=== PATIENT | male | born 1960 | race Caucasian/White ===

== ENCOUNTER 2021-03-16 17:52 | Emergency (ER) | payer OTHER, SELFPAY ==
--- NOTE | ~2021-03-16 | XR_ITS ---
EXAMINATION: XR ABDOMEN KUB CLINICAL INDICATION: Status post G-tube replacement. COMPARISON: None TECHNIQUE: AP view of the abdomen. FINDINGS: A gastrostomy tube demonstrates a somewhat atypical positioning terminating to the right of the midline, possibly within the stomach antrum or proximal duodenum. There is minimal oral contrast within the gastric fundus with the majority of the contrast opacifying loops of small bowel in the right upper quadrant. The opacified duodenum and jejunum are to the right of the midline suggesting malrotation. Correlation with prior images would be helpful. Nonobstructive bowel gas pattern. Advanced deformity of the left hip which is superiorly subluxated off the acetabula. XR/XR KUB IMPRESSION: Atypical positioning of the gastrostomy tube possibly terminating within the stomach antrum or proximal duodenum. The majority of the oral contrast is visualized within the duodenum and proximal jejunum which are to the right of the midline suggesting malrotation. Recommend correlation of appropriate positioning fluoroscopic images or CT of the abdomen. Correlation with prior studies would be also helpful to assess for bowel malrotation. However, none are available at the moment of this examination.
--- NOTE | 2021-03-16 18:51 | ED_ITS ---
HPI - Recheck/Abnormal Lab/Rx General Chief Complaint: General Medical <SOCORRO Vasquez - Last Filed: 03/16/21 20:47> Stated Complaint: PULLED GTUBE OUT <SOCORRO Vasquez Last Filed: 03/16/21 20:47> Time Seen by Provider: 03/16/21 18:04 <SOCORRO Vasquez - Last Filed: 03/16/21 20:47> Source: patient <SOCORRO Vasquez Last Filed: 03/16/21 20:47> Mode of arrival: ambulatory <SOCORRO Vasquez - Last Filed: 03/16/21 20:47> Limitations: no limitations <SOCORRO Vasquez Last Filed: 03/16/21 20:47> History of Present Illness HPI narrative: 60-year-old male presenting to the ED via EMS from [facility] [place] with a past medical history dysphagia with G- tube placed at [facility] on July 2020 presenting to the ED for replacement of G- tube after he pulled it out earlier today at the half-way facility. I called the half-way facility and they reported they were unsure the patient's G-tube size therefore I was able to look at [facility] records and it appears that patient had a [address] Although it appears that they had difficulty time placing and he needed to go to IR for placement. At this time he denies any other symptoms complaints or concerns at this time. <SOCORRO Vasquez - Last Filed: 03/16/21 20:47> MD complaint: other (G-tube replacement) <SOCORRO Vasquez Last Filed: 03/16/21 20:47> Initial visit (ago): hour(s) (Prior to arrival) <SOCORRO Vasquez Last Filed: 03/16/21 20:47> Returns today for: other (G-tube pulled out needs replacement) <SOCORRO Vasquez Last Filed: 03/16/21 20:47> Symptoms since prior visit: no new symptoms <SOCORRO Vasquez Last Filed: 03/16/21 20:47> Associated symptoms: none <SOCORRO Vasquez Last Filed: 03/16/21 20:47> Related Data Allergies/Adverse Reactions: Allergies Allergy/AdvReac Type Severity Reaction Status Date / Time No Known Allergies Allergy Unknown Unverified 12/14/19 15:32 [No Known Allergies*] <SOCORRO Vasquez - Last Filed: 03/16/21 20:47> Review of Systems Review of Systems: Constitutional : No Weight loss, No Fever, No Chills, No Night Sweats, No Fatigue, No Malaise ENT/Mouth : No Hearing loss, No Ear Pain, No Nasal Congestion, No Sinus Pain, No Hoarseness, No sore throat, No Rhinorrhea, No Swallowing Difficulty Eyes: No Eye Pain, No Swelling, No Redness, No Foreign Body, No Discharge, No Vision Changes Cardiovascular : No Chest Pain, No SOB, No Dyspnea on Exertion, No Orthopnea, No Edema, No Palpitations Respiratory : No Cough, No Sputum, No Wheezing, No Smoke Exposure, No Dyspnea Gastrointestinal : No Nausea, No Vomiting, No Diarrhea, No Constipation, No abdominal Pain, No Hematochezia, No Melena Genitourinary : no irregular bleeding, No Dysuria, No Urinary Frequency, No Hematuria, No Urinary Incontinence, No Urgency, No Flank Pain, No Urinary Flow Changes, No Hesitancy Musculoskeletal : No joint pain, No Myalgias, No Joint Swelling Skin : No Skin Lesions, No rash Neuro : No Weakness, No Numbness, No Paresthesias, No Loss of Consciousness, No Dizziness, No Headache Psych : No Anxiety/Panic, No Depression, No SI/HI/AH/VH, No Social Issues, Heme/Lymph: No Bruising, No Bleeding,No Lymphadenopathy Endocrine : No Polyuria, No Polydipsia, No Temperature Intolerance <SOCORRO Vasquez - Last Filed: 03/16/21 20:47> Yes all other systems are reviewed and are negative <SOCORRO Vasquez - Last Filed: 03/16/21 20:47> PMFSH Past Medical History Attestation statement: The following information was validated with the patient. <SOCORRO Vasquez - Last Filed: 03/16/21 20:47> Social History Social History: Social History Advance Directives: No Advance Directives Information Provided: No <SOCORRO Vasquez Last Filed: 03/16/21 20:47> Physical Exam Vital Signs: Vital Signs: Last Vital Signs Temp 97.7 F 03/16/21 21:51 Pulse 77 03/16/21 21:51 Resp 20 03/16/21 21:51 BP 118/60 03/16/21 21:51 Pulse Ox 98 03/16/21 21:51 BMI result Body Mass Index 25.7 vital signs have been reviewed as normal and appeared to be correct. Blood pr essure normal. Heart rate normal. Respiration rate normal. Temperature normal. Oxygen saturation normal. <SOCORRO Vasquez - Last Filed: 03/16/21 20:47> Vital Signs: Last Vital Signs Temp 97.7 F 03/16/21 21:51 Pulse 77 03/16/21 21:51 Resp 20 03/16/21 21:51 BP 118/60 03/16/21 21:51 Pulse Ox 98 03/16/21 21:51 BMI result Body Mass Index 25.7 <SOCORRO Higgins - Last Filed: 03/16/21 21:58> Appearance: Alert. Oriented X3. No acute distress. Head: Normal external exam. Normocephalic. Eyes: PERRLA. EOMI. Conjunctiva and sclera normal. Eyelids normal. ENT: Pharynx normal. Uvula midline. Moist mucous membranes. Neck: Normal inspection. Neck supple. FROM. No adenopathy. No meningeal signs. CVS: Normal heart rate and rhythm. Heart sound normal. No murmurs noted. Pulses normal throughout. Respiratory: No respiratory distress. Painless inspiration. Breath sounds normal. No wheezes/rales/rhonchi noted. Chest nontender. No accessory muscle usage noted or decreased air movement noted. Abdomen: Soft and nontender. Nondistended. No guarding. No rigidity. Bowel sounds normal in all 4 quadrants. No distention noted. No organomegaly noted. No visible injury noted. No rebound tenderness. Negative Rovsing sign. Negative obturator's sign. Negative psoas sign. Negative Garcias sign. Patient noted to have opening to left upper quadrant/umbilicus area consistent with G- tube placement. No signs of infection or active bleeding noted. Back: Full range of motion noted. Skin: Skin warm and dry. Normal skin color. Normal skin turgor. No rashes/lesions/lacerations noted. Extremities: Extremities exhibit normal range of motion. Extremities nontender. Neuro: Oriented X 3. No motor deficit. No sensory deficit. Reflexes normal. <SOCORRO Vasquez - Last Filed: 03/16/21 20:47> Course Course Course Narrative: Reviewed x-ray with Dr Schwartz, who will repositioin tube, and determined patient is safe to return to his nursing facility <SOCORRO Higgins - Last Filed: 03/16/21 21:58> MDM - Recheck/Abnormal Lab/Rx MDM Narrative Medical decision making narrative: 60-year-old male presenting to the ED via EMS [facility] [place] with a past medical history dysphagia with G- tube placed at [facility] on July 2020 presenting to the ED for replacement of G- tube after he pulled it out earlier today at the half-way facility. I called the half-way facility and they reported they were unsure the patient's G-tube size therefore I was able to look at [facility] records and it appears that patient had a [address] Although it appears that they had difficulty time placing and he needed to go to IR for placement. At this time he denies any other symptoms complaints or concerns at this time. I had a difficult time placing a 20 Belarusian G-tube and we called the nursing newspaper distributor supervisor and there was no smaller G Tube size therefore I consulted with the general surgeon Dr. Cordova and she recommended placing a Tavarez catheter in. Inflate balloon. Pullback tensely. Gastrografin through the Tavarez and snap a quick KUB 1-2 minutes after show contrast in stomach then to send the patient home if the Gastrografin was noted in the stomach. Therefore patient tolerated procedure well I placed the 18 Belarusian Tavarez catheter in no complications. Pending x-ray at this time if Gastrografin is in the stomach will DC back to half-way facility. Patient understands agrees with this plan. <SOCORRO Vasquez - Last Filed: 03/16/21 20:47> Medical Records Attestation: I reviewed the patient's medical records. <SOCORRO Vasquez Last Filed: 03/16/21 20:47> Discharge Plan Discharge Clinical Impression: Gastrojejunostomy tube dislodgement <SOCORRO Vasquez - Last Filed: 03/16/21 20:47> Patient Disposition: Home, Self-Care <SOCORRO Vasquez - Last Filed: 03/16/21 20:47> Additional Instructions: We attempted to place a 20 Belarusian G-tube due to that is what I got out of the [facility] records when he had it placed and we had a lot of resistance therefore I consulted with the general surgeon who recommended placing a Tavarez catheter in place therefore an 18 Belarusian Tavarez catheter was placed and confirm with KUB with Gastrografin that he has a tube back in place in the stomach. Return if any new or worsening symptoms and follow-up with cylinder die machine operator. <SOCORRO Vasquez - Last Filed: 03/16/21 20:47> Referrals: Alejandro Leach MD [Primary Care Provider] - 2 days <SOCORRO Vasquez - Last Filed: 03/16/21 20:47> Print Language: Latvian <SOCORRO Vasquez - Last Filed: 03/16/21 20:47>
[2021-03-16 18:55] VITALS: BP 137/84; BP 144/70; PULSE 81; PULSE 90; RESP 16; TEMP 36.8; O2SAT 96; O2SAT 98; BMI 25.7
--- NOTE | 2021-03-16 19:08 | PC.NURSE ---
SOCORRO VU UNABLE TO PLACE G-TUBE AT BEDSIDE. NO SIZE 18 AVAILABLE TRY TO HAVE MANAGING BROKER PLACE AND IV.
--- NOTE | 2021-03-16 21:50 | PC.NURSE ---
Boosted pt up in bed, made him more comfortable. Offered blanket.
[2021-03-16 21:51] VITALS: BP 118/60; PULSE 77; RESP 20; TEMP 36.5; O2SAT 98
== END 2021-03-16 23:00 | disposition home or self-care (01) ==
PROVIDERS: Emergency Provider Emergency Medicine; PCP Internal Medicine
DX: T85.528A Displacement of other gastrointestinal prosthetic devices, implants and grafts, initial encounter (principal); Y82.8 Other medical devices associated with adverse incidents
CPT/HCPCS: 43762; 74018; 99283; 99284

== ENCOUNTER 2021-03-29 20:01 | Emergency (ER) | payer OTHER, SELFPAY ==
--- NOTE | ~2021-03-29 | XR_ITS ---
EXAMINATION: XR ABDOMEN KUB CLINICAL INDICATION: G-tube check COMPARISON: 03/29/2021 TECHNIQUE: AP view of the abdomen. FINDINGS: ET tube overlies the region of the gastric antrum and body. Injected contrast extends into the stomach and propagates into the duodenum to the level of the fourth portion of duodenum. No appreciable extraluminal contrast. Intraluminal gas is present in the colon. No pathologic calcifications are identified. Degenerative spondylosis is present in the thoracic spine. XR/XR KUB IMPRESSION: Intraluminal positioning of the G-tube at the stomach.
[2021-03-29 20:07] VITALS: BP 118/72; PULSE 94; O2SAT 98
[2021-03-29 20:12] VITALS: BP 115/68; PULSE 91; RESP 20; TEMP 37; O2SAT 95; BMI 26.6
--- NOTE | 2021-03-29 20:14 | ED_ITS ---
HPI - General Adult General Chief complaint: General Medical Stated complaint: FEEDING TUBE ISSUE Time Seen by Provider: 03/29/21 20:14 Source: EMS and RN notes reviewed Mode of arrival: EMS History of Present Illness HPI narrative: Patient from intermediate came here for this large feeling tube size unknown Related Data Allergies Allergy/AdvReac Type Severity Reaction Status Date / Time No Known Allergies Allergy Unknown Unverified 03/29/21 20:15 [No Known Allergies*] Review of Systems Review of Systems: Yes all other systems are reviewed and are negative [facility] Past Medical History Medical History (Updated 03/29/21 @ 20:52 by Harshal Schwartz MD) COPD (chronic obstructive pulmonary disease) Dementia Dysphagia Gastrostomy in place Hypertension Hypothyroidism Osteoarthritis Schizophrenia Social History Social History Advance Directives: No Physical Exam Vital Signs: Vital Signs: Last Vital Signs Temp 98.6 F 03/29/21 20:12 Pulse 91 03/29/21 20:12 Resp 20 03/29/21 20:12 BP 115/68 03/29/21 20:12 Pulse Ox 95 03/29/21 20:12 BMI result Body Mass Index 26.6 Appearance: Alert. Oriented X1. No acute distress. ENT: Pharynx normal. Oral Mucosa moist Neck: Normal inspection. Neck supple. CVS: Normal heart rate and rhythm. Pulses normal. Respiratory: No respiratory distress. Equal air entry bilateral, no wheezing/rales/rhonchi Abdomen: Soft and nontender. Stoma for G-tube in place, Bowel sounds are present, no mass palpable, no CVA tenderness Skin: Skin warm and dry. Normal skin color. Normal skin turgor. Extremities: No lower extremity edema. No calf tenderness Neuro: Oriented X1 Procedures Feeding Tube Replacement Type of Tube: gastrostomy Insertion Site Prior to Procedure: clean Tube Used for Reinsertion: other Egyptian Tube Size (F): 22 Balloon size (mL): 10 Verification of Placement: gastrografin injection Patient Tolerated Procedure: well and no complications Medical Decision Making MDM Narrative Medical decision making narrative: G-tube was dislodged at intermediate was replaced by 22 Egyptian G-tube without much resistance Gastrografin x-ray showed G tube in place Discharge Plan Discharge Clinical Impression: Dislodged gastrostomy tube Patient Disposition: Xfer [facility] Transfer Details: to [place] Instructions: PEG Tube Insertion (DC) Additional Instructions: Local care as advised 22 Egyptian G-tube was replaced okay to use for feeding Interventions: ED Discharge Assessment Last Done: 03/29/21 22:08 Discharge Date/Time: 03/29/21 22:09
--- NOTE | 2021-03-29 20:23 | PC.NURSE ---
MD at bedside for g-tube placement. Per MD, size 22 g-tube placed. Plan for Xray and discharge.
--- NOTE | 2021-03-29 20:37 | ED.GENADULT ---
HPI - General Adult General Chief complaint: General Medical Stated complaint: FEEDING TUBE ISSUE Time Seen by Provider: 03/29/21 20:14 Source: EMS History of Present Illness HPI narrative: Patient came from residential G-tube replacement as it was dislodged in residential Related Data Allergies Allergy/AdvReac Type Severity Reaction Status Date / Time No Known Allergies Allergy Unknown Unverified 03/29/21 20:15 [No Known Allergies*] PMFSH Past Medical History Medical History (Updated 03/29/21 @ 20:52 by Harshal Schwartz MD) COPD (chronic obstructive pulmonary disease) Dementia Dysphagia Gastrostomy in place Hypertension Hypothyroidism Osteoarthritis Schizophrenia Social History Social History Advance Directives: No Physical Exam Vital Signs: Vital Signs: Last Vital Signs Temp 98.6 F 03/29/21 20:12 Pulse 91 03/29/21 20:12 Resp 20 03/29/21 20:12 BP 115/68 03/29/21 20:12 Pulse Ox 95 03/29/21 20:12 BMI result Body Mass Index 26.6 Discharge Plan Discharge Clinical Impression: Dislodged gastrostomy tube Patient Disposition: Xfer SNF Transfer Details: to [place] Instructions: PEG Tube Insertion (DC) Additional Instructions: Local care as advised 22 Azeri G-tube was replaced okay to use for feeding Interventions: ED Discharge Assessment Last Done: 03/29/21 22:08 Discharge Date/Time: 03/29/21 22:09
--- NOTE | 2021-03-29 22:02 | PC.NURSE ---
This RN contacting [facility] regarding nurse to nurse report. EMS at bedside for return transport to facility.
== END 2021-03-29 22:09 | disposition skilled nursing facility (03) ==
PROVIDERS: Emergency Provider Internal Medicine; PCP Internal Medicine
DX: K94.23 Gastrostomy malfunction (principal); Z79.899 Other long term (current) drug therapy
CPT/HCPCS: 43762; 74018; 99283

== ENCOUNTER 2021-04-03 11:18 | Emergency (ER) | payer OTHER, SELFPAY ==
--- NOTE | ~2021-04-03 | XR_ITS ---
EXAMINATION: XR ABDOMEN KUB CLINICAL INDICATION: G-tube check with Gastrografin COMPARISON: 03/29/2021 TECHNIQUE: Single view of the abdomen was obtained on 2 images. FINDINGS: The tip of the G-tube overlies the distal gastric body similar to the previous study. Oral contrast fills the stomach and proximal small bowel. No evidence of bowel obstruction. XR/XR abdomen 1V IMPRESSION: Oral contrast in the stomach and proximal small bowel. Nonobstructive bowel gas pattern.
[2021-04-03 11:33] VITALS: BP 125/68; BP 130/70; PULSE 79; PULSE 80; RESP 18; O2SAT 97; O2SAT 98; BMI 24.9
[2021-04-03 11:38] VITALS: TEMP 36.4
--- NOTE | 2021-04-03 11:46 | ED_ITS ---
HPI - General Adult General Stated complaint: G-TUBE ISSUE FROM SNF Time Seen by Provider: 04/03/21 11:22 Source: patient Mode of arrival: ambulatory Limitations: no limitations History of Present Illness HPI narrative: Patient comes to the emergency room by EMS. Seems that earlier today, patient pulled out his G-tube. According to EMS, they were not told what size of G-tube the patient had, they were not told either how long the G-tube has been out. Patient is unable to give any history due to advanced dementia. Patient states that he is doing well. Reviewing patient's notes, patient was seen here on March 29. Patient dislodged his G-tube and it was replaced with a 22 Congolese. Related Data Allergies Allergy/AdvReac Type Severity Reaction Status Date / Time No Known Allergies Allergy Unknown Verified 04/03/21 11:33 [No Known Allergies*] Review of Systems Review of Systems: Dislodged G-tube Yes Unobtainable due to mental condition PMFSH Past Medical History Medical History COPD (chronic obstructive pulmonary disease) Dementia Dysphagia Gastrostomy in place Hypertension Hypothyroidism Osteoarthritis Schizophrenia Social History Social History Advance Directives: No Advance Directives Information Provided: Yes Physical Exam Vital Signs: Vital Signs: Last Vital Signs Temp 97.6 F 04/03/21 11:38 Pulse 79 04/03/21 11:33 Resp 18 04/03/21 11:33 BP 125/68 04/03/21 11:33 Pulse Ox 97 04/03/21 11:33 BMI result Body Mass Index 24.9 Const: Other: Appearance: Alert. Oriented X3. No acute distress. Eyes: Pupils equal, round and reactive to light. ENT: Pharynx normal. Neck: Normal inspection. Neck supple. No lymph nodes noted. No crepitus CVS: Normal heart rate and rhythm. Pulses normal. Normal S1 and S2 Respiratory: No respiratory distress. Breath sounds normal. No Wheezing. No rales Abdomen: Soft and nontender. No rigidity. No distention. G-tube foramen is patent Skin: Skin warm and dry. Normal skin color. Normal skin turgor. Extremities: No lower extremity edema. No Lacerations. No Rash Neuro: Oriented X 3. No motor deficit. No sensory deficit. Moving all extermities. No slurred speech. Course Course Course Narrative: Patient's G-tube was replaced with a new 22 Congolese G-tube. Medical Decision Making Imaging Data KUB: My impression: I personally reviewed the KUB. The injected contrast propagates into the duodenum Discharge Plan Discharge Clinical Impression: Dislodged gastrostomy tube Patient Disposition: Home, Self-Care Instructions: How to Use and Care for Your PEG Tube (ED) Additional Instructions: Please follow-up with your primary care physician tomorrow. If you have any worsening or new symptoms, please return to the emergency room or call 911
[2021-04-03] MEDS: Diatrizoate Meglumine, Sodium 120 ML SOLUTION PO (13:04)
--- NOTE | 2021-04-03 16:30 | PC.NURSE ---
cleansed of loose stool again. awaits return to [facility]
[2021-04-03 17:23] LABS: Glucose, Whole Blood 65 mg/dL (60-115)
--- NOTE | 2021-04-03 19:59 | PC.NURSE ---
pt has been queitly resting throughout the day. 2-3 episodes of loose stool cleansed. unlabored. reminded to use mask. after poc of 65 was given this RN attempted to contact facility x 3 but was never answered. po orange juice with provider's permission. pt has slight coughing at very end of juice. at this time GI tube feeding has arrived from kitchen and patient will receive 60cc/hr untill discharge. awaits transportation to facility. report was not given since facility never answered phone.
--- NOTE | 2021-04-03 20:24 | PC.NURSE ---
This RN gave nurse to nurse report to Kait at [facility] who accepted report and accepted pt to be transferred back to facility
[2021-04-03 20:52] VITALS: BP 127/73; PULSE 83; RESP 18; TEMP 36.7; O2SAT 96
== END 2021-04-03 21:24 | disposition home or self-care (01) ==
PROVIDERS: Emergency Provider Emergency Medicine
DX: T85.528A Displacement of other gastrointestinal prosthetic devices, implants and grafts, initial encounter (principal); Y82.8 Other medical devices associated with adverse incidents; I10 Essential (primary) hypertension; F03.90 Unspecified dementia, unspecified severity, without behavioral disturbance, psychotic disturbance, mood disturbance, and anxiety
CPT/HCPCS: 43762; 74018; 82947; 99283; 99284

== ENCOUNTER 2021-06-29 15:26 | Inpatient (IN) | payer OTHER, SELFPAY ==
[2021-06-29] VITALS (7 sets, daily range): BP systolic 96–131; BP diastolic 59–78; PULSE 115–126; RESP 17–26; TEMP 37.2–38.4; O2SAT 88–95; BMI 27.6
--- NOTE | ~2021-06-29 | XR_ITS ---
EXAMINATION: XR CHEST CLINICAL INFORMATION: Dyspnea COMPARISON: Chest x-ray 12/16/2014 and chest x-ray 10/05/2014 TECHNIQUE: Frontal view of the chest was obtained. FINDINGS: Cardiac silhouette is normal in size. Prominent asymmetric elevation of the right hemidiaphragm with gaseous loops of colon within the. Linear opacities of the right lung base are most suggestive of atelectasis. There is relatively good aeration of the left hemithorax. No large pleural effusion. No pneumothorax. XR/XR chest 1V IMPRESSION: No gross lobar consolidation.
--- NOTE | 2021-06-29 15:51 | ECG_ITS ---
Test Reason : AMS Blood Pressure : / mmHG Vent. Rate : 116 BPM Atrial Rate : 116 BPM P-R Int : 140 ms QRS Dur : 074 ms QT Int : 330 ms P-R-T Axes : 046 097 054 degrees QTc Int : 458 ms Sinus tachycardia Rightward axis Low voltage QRS ST & T wave abnormality, consider anterior ischemia Abnormal ECG When compared with ECG of 15-SEP-2014 19:29, Questionable change in QRS axis Referred By: Generic ED Physician Electronically Signed By:ROLAND CANO MD
[2021-06-29 16:02] LABS: MANUAL DIFF FLAG NO
[2021-06-29 16:04] LABS: Basophils Percent Auto 0.4 % (0-2); Hematocrit 41.7 % (42.0-52.0); Hemoglobin 14.2 g/dl (14.0-18.0); Imm Gran Abs Auto 0.05 X10*3/uL (0.00-0.03); Imm Gran Pct Auto 0.6 % (0.0-0.4); Lymphocytes Absolute Auto 1.6 X10*3/uL (1.2-4.9); Lymphocytes Percent Auto 18.9 % (20-40); Mean Corpuscular HGB Conc 34.1 g/dl (31.0-36.0); Mean Corpuscular Hemoglobin 31.6 pg (27.0-33.0); Mean Corpuscular Volume 92.7 fL (80.0-98.0); Mean Platelet Volume 12.6 fL (9.4-12.4); Monocytes Absolute Auto 0.5 X10*3/uL (0.1-1.2); Monocytes Percent Auto 6.6 % (2-11); Neutrophils Absolute Auto 6.1 x10*3/uL (2.0-8.3); Neutrophils Percent Auto 73.5 % (45-73); Platelet Count 120 X10*3/uL (160-400); Red Cell Distribution Width 13.6 % (11.0-16.0); White Blood Count 8.2 X10*3/uL (4.8-10.8)
--- NOTE | 2021-06-29 16:23 | ED.SOB ---
HPI - SOB/Dyspnea General Chief Complaint: Dyspnea Stated Complaint: ams Time Seen by Provider: 06/29/21 16:09 Source: EMS Mode of arrival: EMS Limitations: altered mental status (Patient has dysarthric speech which is difficult to comprehend) History of Present Illness HPI Narrative: 60-year-old male patient sent in from [place] [facility] for evaluation of altered mental status, dyspnea and fever. Patient was noted to have significant redness and warmth to the left hip and left lower extremity. The following information was obtained from the long-term transfer note: Resident with increased white blood cell count, increased respiratory rate, increased shortness of breath, increased heart rate, increased cough. Resident is NPO. Jimmie gastrotomy tube with continuous feeding. The patient is a full code. MD elicited complaint: shortness of breath and cough Pertinent past history: COPD, pneumonia, aspiration and other (Dysphagia) Onset (ago): day(s) (2) Timing: constant Severity: severe Exacerbating factors: coughing Relieving factors: nothing Known history of: COPD and aspiration pneumonia Associated symptoms: fever and cough Treatment prior to arrival: oxygen Related Data Home Medications Medication Instructions Recorded Confirmed acetaminophen 160 mg/5 mL oral 960 mg FEEDING TUBE BID 06/29/21 06/29/21 liquid benztropine 0.5 mg tablet 0.5 mg FEEDING TUBE BID 06/29/21 06/29/21 clonazepam 0.5 mg tablet 0.5 mg FEEDING TUBE DAILY@179906/29/21 06/29/21 famotidine 20 mg tablet 20 mg FEEDING TUBE DAILY@179906/29/21 06/29/21 haloperidol 5 mg tablet 5 mg FEEDING TUBE DAILY@179906/29/21 06/29/21 levothyroxine 125 mcg tablet 125 mcg FEEDING TUBE DAILY@59906/29/21 06/29/21 levothyroxine 25 mcg tablet 12.5 mcg FEEDING TUBE DAILY@59906/29/21 06/29/21 melatonin 3 mg tablet 6 mg FEEDING TUBE DAILY@179906/29/21 06/29/21 polyethylene glycol 3350 17 gram 17 g FEEDING TUBE DAILY@1800 06/29/21 06/29/21 oral powder packet quetiapine 100 mg tablet 100 mg FEEDING TUBE BEDTIME 06/29/21 06/29/21 quetiapine 25 mg tablet 50 mg FEEDING TUBE DAILY@0606/29/21 06/29/21 sennosides 8.6 mg-docusate sodium 2 tab-cap PO BID 06/29/21 06/29/21 50 mg tablet (Senna with Docusate Sodium) valproic acid (as sodium salt) 250 500 mg FEEDING TUBE BID 06/29/21 06/29/21 mg/5 mL oral solution Allergies Allergy/AdvReac Type Severity Reaction Status Date / Time No Known Allergies Allergy Unknown Verified 04/03/21 11:33 [No Known Allergies*] Review of Systems Review of Systems: Yes all other systems are reviewed and are negative Neurologic: Reports Abnormal speech present (Dysarthric) [facility] Past Medical History [facility] Narrative: Social history: The patient is a resident of the [facility] [place] [facility]. He does not smoke cigarettes, drink alcohol or use drugs. Medical History COPD (chronic obstructive pulmonary disease) Dementia Dysphagia Gastrostomy in place Hypertension Hypothyroidism Osteoarthritis Schizophrenia Social History Social History Advance Directives: No Advance Directives Information Provided: No Physical Exam Vital Signs: Vital Signs: Last Vital Signs Temp 101.1 F H 06/29/21 15:46 Pulse 116 H 06/29/21 16:47 Resp 24 H 06/29/21 16:47 BP 113/74 06/29/21 16:47 Pulse Ox 94 06/29/21 16:47 BMI result Body Mass Index 27.6 Const: Other: Awake, male patient, he was able to tell me his name, has dysarthric speech which is incomprehensible. He does sound like a has a productive cough, he is dyspneic but does not appear to be in respiratory distress. Orientation/consciousness: oriented to person HEENT: Head: Yes normal to inspection, Yes normocephalic and Yes atraumatic Ears: external ears normal General nose exam: Normal external nose present Face and sinus: Yes normal facial exam Mouth: other (Dry oral mucosa) Throat: Yes posterior oropharynx normal Eyes: General: appearance normal, both eyes and all related structures Periorbital: periorbital findings normal Eyelids: Yes eyelids normal Conjunctivae: conjunctivae normal Sclerae: sclerae normal Corneas: corneas normal Pupils: Equal, round and reactive pupils present Direct Ophthalmoscopy: normal light reflex Neck: Neck: Yes normal visual inspection and Yes supple Lymphatic: no lymphadenopathy noted Chest: Chest palpation & inspection: normal inspection of the chest and normal palpation of entire chest wall Resp: Effort & Inspection: audible wheezes and tachypneic Auscultation: rales diffuse, rhonchi throughout and no wheezes Cardio: Rate: tachycardic Rhythm: regular rhythm Heart sounds: S1 normal heart sound present and S2 normal heart sound present GI: Other: G-tube Inspection: No distended Palpation (GI): Soft to palpation, nontender and no guarding Auscultation: normal bowel sounds : General: Yes no CVA tenderness Back/Spine/Pelvis: Back: no CVA tenderness Skin: Other: Erythema left lower extremity, see extremity exam/photo Neuro: General: oriented to person Cranial nerves: Yes CN's II-XII intact bilaterally and Yes Equal, round and reactive pupils present Speech: Abnormal speech present (Dysarthric) Motor exam (neuro): Other motor observations present (Atrophy of lower extremities, moves upper extremities symmetrically) Extrem: Other: Atrophy of lower extremities, the patient has erythema from his left hip down to his foot, the erythema is warm to touch and blanches with palpation Course Course Course Narrative: 60-year-old male sent from his nursing facility for evaluation of elevated WBC, cough, elevated respiratory rate, elevated heart rate. According to the ED nurse, paramedics report that the patient is normally alert and verbal and apparently he may be slightly altered according to the long-term. On presentation, the patient is oriented to person, he has very dysarthric speech which is not comprehensible. His vital signs revealed a pulse of 120, respiratory rate of 26 and a temperature of a 101.5 degrees F. his blood pressure was 137/74. The patient meets SIRS criteria and a sepsis alert was activated at 16:15 hours. The patient does have a history of dysphagia and has a G-tube for continual feeding. He has had aspiration pneumonia is in the past. The ED nurse noted that the patient had significant erythema to his left lower extremity from his hip down to his foot. Laboratory evaluation was ordered. Given the fact that he is at high risk for aspiration pneumonia he was given Zosyn 4.5 g IV and also he may have a significant cellulitis of his left leg therefore he is ordered to get vancomycin 1250 mg IV as well. Also, I ordered a 30 cc/kilogram normal saline bolus was ordered. 1750: Laboratory evaluation: Low platelets a 709765, low sodium 132, low CO2 20, elevated BUN 31. Troponin was detectable but not elevated at 6.2. First lactate was elevated 2.3, after fluid bolus repeat lactate was 1.9. BNP was 35. Radiology studies: Chest x-ray no acute lobar disease as per radiologist. I did discuss the patient's presentation with the covering hospitalist, Dr. Razo and the patient will be admitted for further management his cellulitis. MDM - SOB/Dyspnea Lab Data Result diagrams: 06/29/21 15:55 06/29/21 16:32 Labs: Lab Results 06/29/21 06/29/21 06/29/21 Range/Units 15:55 15:55 16:16 WBC 8.2 (4.8-10.8) X10*3/uL RBC 4.50 L (4.60-5.80) X10*6/uL Hgb 14.2 (14.0-18.0) g/dl Hct 41.7 L (42.0-52.0) % MCV 92.7 (80.0-98.0) fL MCH 31.6 (27.0-33.0) pg MCHC 34.1 (31.0-36.0) g/dl RDW 13.6 (11.0-16.0) % Plt Count 120 L (160-400) X10*3/uL MPV 12.6 H (9.4-12.4) fL Immature Gran % (Auto) 0.6 H (0.0-0.4) % Neut % (Auto) 73.5 H (45-73) % Lymph % (Auto) 18.9 L (20-40) % Wilson % (Auto) 6.6 (2-11) % Eos % (Auto) 0.0 (0-4) % Baso % (Auto) 0.4 (0-2) % Lymph # (Auto) 1.6 (1.2-4.9) X10*3/uL Wilson # (Auto) 0.5 (0.1-1.2) X10*3/uL Eos # (Auto) 0.0 (0.0-0.4) X10*3/uL Baso # (Auto) 0.0 (0.0-0.2) X10*3/uL Abs Immat Gran (auto) 0.05 H (0.00-0.03) X10*3/uL Absolute Neuts (auto) 6.1 (2.0-8.3) x10*3/uL Absolute Nucleated RBC 0.000 (0.0-0.012) X10*3/uL Nucleated RBC % (auto) 0.0 (0.0-0.2) /100WBC Sodium (135-145) mmol/L Potassium (3.3-5.1) mmol/L Chloride (96-108) mmol/L Carbon Dioxide (22-29) mmol/L Anion Gap (12-20) BUN (9-16) mg/dL Creatinine (0.5-1.4) mg/dL Estim Creat Clear Calc Estimated GFR Random Glucose (60-115) mg/dL Lactic Acid 2.3 H* (0.5-2.0) mmol/L Calcium (8.4-10.2) mg/dL Total Bilirubin (0.0-1.0) mg/dL Direct Bilirubin (0.0-0.5) mg/dL AST (5-37) U/L ALT (0-40) U/L Alkaline Phosphatase (39-117) U/L Troponin I High Sens 6.2 (<3.5-35.0) ng/L B-Natriuretic Peptide 35 (<100) pg/mL Total Protein (6.5-8.0) g/dL Albumin (3.5-5.0) g/dL Lipase (8-78) U/L 06/29/21 06/29/21 Range/Units 16:32 17:25 WBC (4.8-10.8) X10*3/uL RBC (4.60-5.80) X10*6/uL Hgb (14.0-18.0) g/dl Hct (42.0-52.0) % MCV (80.0-98.0) fL MCH (27.0-33.0) pg MCHC (31.0-36.0) g/dl RDW (11.0-16.0) % Plt Count (160-400) X10*3/uL MPV (9.4-12.4) fL Immature Gran % (Auto) (0.0-0.4) % Neut % (Auto) (45-73) % Lymph % (Auto) (20-40) % Wilson % (Auto) (2-11) % Eos % (Auto) (0-4) % Baso % (Auto) (0-2) % Lymph # (Auto) (1.2-4.9) X10*3/uL Wilson # (Auto) (0.1-1.2) X10*3/uL Eos # (Auto) (0.0-0.4) X10*3/uL Baso # (Auto) (0.0-0.2) X10*3/uL Abs Immat Gran (auto) (0.00-0.03) X10*3/uL Absolute Neuts (auto) (2.0-8.3) x10*3/uL Absolute Nucleated RBC (0.0-0.012) X10*3/uL Nucleated RBC % (auto) (0.0-0.2) /100WBC Sodium 132 L (135-145) mmol/L Potassium 5.0 (3.3-5.1) mmol/L Chloride 101 (96-108) mmol/L Carbon Dioxide 20 L (22-29) mmol/L Anion Gap 16 (12-20) BUN 31 H (9-16) mg/dL Creatinine 1.29 (0.5-1.4) mg/dL Estim Creat Clear Calc 66.8 Estimated GFR 57 Random Glucose 100 (60-115) mg/dL Lactic Acid 1.9 (0.5-2.0) mmol/L Calcium 8.3 L (8.4-10.2) mg/dL Total Bilirubin 0.6 (0.0-1.0) mg/dL Direct Bilirubin 0.2 (0.0-0.5) mg/dL AST 47 H (5-37) U/L ALT 35 (0-40) U/L Alkaline Phosphatase 79 (39-117) U/L Troponin I High Sens (<3.5-35.0) ng/L B-Natriuretic Peptide (<100) pg/mL Total Protein 6.3 L (6.5-8.0) g/dL Albumin 2.8 L (3.5-5.0) g/dL Lipase 16 (8-78) U/L Critical Care Time Critical Care Time Critical Care Time: Yes Total Critical Care Time: 35 Attestation: Critical Care: The patient was critically ill with a high probability of imminent or life threatening deterioration. I spent greater than 30 minutes of discontinuous time evaluating the patient,delivering critical care at the bedside, discussing and evaluating pertinent data with consultants. Critical care time does not include time spent performing separately billable procedures or teaching. Total time spent performing critical care was 30 minutes. Discharge Plan Discharge Prescriptions: No Action quetiapine 25 mg Tablet 50 mg feeding tube DAILY@0600 0RF benztropine 0.5 mg Tablet 0.5 mg feeding tube BID 0RF Rx Instructions: AT 0600 AND 1800 haloperidol 5 mg Tablet 5 mg feeding tube DAILY@1800 0RF acetaminophen 160 mg/5 mL Liquid 960 mg feeding tube BID 0RF Rx Instructions: TAKE A 6 AM AND 6 PM polyethylene glycol 3350 17 gram Powder In Packet 17 g feeding tube DAILY@1800 0RF clonazepam 0.5 mg Tablet 0.5 mg feeding tube DAILY@1800 0RF sennosides-docusate sodium [Senna with Docusate Sodium] 8.6-50 mg Tablet 2 tab-cap PO BID 0RF melatonin 3 mg Tablet 6 mg feeding tube DAILY@1800 0RF quetiapine 100 mg Tablet 100 mg feeding tube BEDTIME 0RF levothyroxine 25 mcg Tablet 12.5 mcg feeding tube DAILY@0600 0RF famotidine 20 mg Tablet 20 mg feeding tube DAILY@1800 0RF valproic acid (as sodium salt) 250 mg/5 mL Solution 500 mg feeding tube BID 0RF levothyroxine 125 mcg Tablet 125 mcg feeding tube DAILY@0600 0RF Rx Instructions: WITH 12.5 MCG TABLET
[2021-06-29 16:28] LABS: B Type Natriuretic Peptide 35 pg/mL (<100); Troponin-I High Sensitivity 6.2 ng/L (<3.5-35.0)
--- NOTE | 2021-06-29 16:31 | PHA.MEDREC ---
Pharmacy Consult ? Medication Reconciliation Pharmacy has completed the medication reconciliation.
[2021-06-29 16:40] LABS: Lactic Acid 2.3 mmol/L (0.5-2.0)
[2021-06-29] MEDS: Acetaminophen Supp 650 MG SUPP.RECT PR (16:44)
[2021-06-29] MEDS: Piperacillin Sodium/Tazobactam 4.5 GM in 0.9 % Sodium Chloride 100 ML IV (16:46)
[2021-06-29] MEDS: vancomycin HCL 1,000 MG, vancomycin HCL 750 MG in 0.9 % Sodium Chloride 500 ML 267.5 MG IV (16:55)
[2021-06-29 17:14] LABS: Alanine Aminotransferase 35 U/L (0-40); Albumin Level 2.8 g/dL (3.5-5.0); Alkaline Phosphatase 79 U/L (39-117); Anion Gap 16 (12-20); Aspartate Amino Transferase 47 U/L (5-37); Bilirubin Direct 0.2 mg/dL (0.0-0.5); Bilirubin Total 0.6 mg/dL (0.0-1.0); Blood Urea Nitrogen 31 mg/dL (9-16); Calcium 8.3 mg/dL (8.4-10.2); Carbon Dioxide 20 mmol/L (22-29); Chloride 101 mmol/L (96-108); Creatinine Clr Calc Pharmacy 66.8; Estimated Glomerular Filt Rate 57; Glucose Random 100 mg/dL (60-115); Lipase 16 U/L (8-78); Sodium 132 mmol/L (135-145); Total Protein 6.3 g/dL (6.5-8.0)
[2021-06-29 17:41] LABS: Lactic Acid 1.9 mmol/L (0.5-2.0)
[2021-06-29 17:50] LABS: Appearance Urine CLEAR; Color Urine YELLOW; Glucose Urine UA NEG (NEG); Leukocyte Esterase Urine NEG (NEG); Nitrite Urine NEG (NEG); Specific Gravity - Urine 1.025 (1.005-1.025); UACC Culture Trigger NO; Urine Blood TRACE (NEG); Urine Ketones NEG (NEG); Urine Protein 1+ MG/DL (NEG-TRACE)
[2021-06-29 18:02] LABS: Influenza A PCR NEGATIVE (Negative); Influenza B PCR NEGATIVE (Negative); Resp Syncy Virus RNA Qual PCR NEGATIVE (Negative); SARS COV2 PCR INHOUSE NEGATIVE (Negative)
[2021-06-29 18:02] LABS: Amorphous Sediment Urine TRACE /LPF; Mucus Urine TRACE /LPF; Squamous Epithelial Cell Urine TRACE /LPF; WBC Urine 0-2 /HPF (0-4)
[2021-06-29 18:19] LABS: Reflex Lactate? Lactic Acid Added
--- NOTE | 2021-06-29 19:18 | P.HPHOSP_ITS ---
History of Present Illness Date of Service: 06/29/21 Chief Complaint: fever 60-year-old male with a past history of hypertension, hypothyroidism, dysphagia status post G-tube, COPD, dementia, schizophrenia, osteoarthritis, history of aspiration pneumonia; presented to the hospital today with a chief complaint fever/altered mental status[facility] Most of the history obtained from the records and staff Reportedly patient was noted to have of nurse of breath and cough; denies any sputum production. Also had fevers; on labs noted to have leukocytosis; subsequently sent to the hospital for further evaluation. Patient is currently alert and awake. Denies any pain Review of all other systems is limited. ER course: Per ER team patient on presentation noted to have mild leukocytosis, mildly tachypneic, tachycardic, also noted to have lactic acidosis; concern for sepsis; chest x-ray showed no acute findings; urinalysis showed microscopic hematuria; On examination left lower extremity the noted to have erythema concerning for cellulitis, likely source of infection; patient was given Zosyn. Patient also received normal saline at 30 cc/kg; blood pressure stable. Admitted for further management. [facility] Medical History COPD (chronic obstructive pulmonary disease) Dementia Dysphagia Gastrostomy in place Hypertension Hypothyroidism Osteoarthritis Schizophrenia Pertinent family history: Patient unable to provide information Social History Advance Directives: No Advance Directives Information Provided: No Meds Allergies Allergy/AdvReac Type Severity Reaction Status Date / Time No Known Allergies Allergy Unknown Verified 04/03/21 11:33 [No Known Allergies*] Active Medications: Current Medications Acetaminophen (Acetaminophen 325 Mg Tablet) 650 mg PO Q6H PRN PRN Reason: Pain, Mild (Pain Scale 1-3) Heparin Sodium (Porcine) (Heparin Sodium,Porcine 5,000 Unit/Ml Vial) 5,000 unit SUBCUT Q8H [facility] Piperacillin Sod/Tazobactam (Sod 3.375 gm/ Sodium Chloride) 50 mls @ 100 mls/hr IV Q6H [facility] Pharmacy Consult (Consult Rx Vancomycin Dosing) 1 each MISCELLANE DAILY PRN PRN Reason: Consult order Pharmacy Consult (Consult Rx Perform Med Rec) 1 each MISCELLANE ONCE PRN PRN Reason: Consult order Sodium Chloride (0.9 % Sodium Chloride Flush 3 Ml Syringe) 3 ml IVFLUSH QSHIFT [facility] Home Medications Medication Instructions Recorded Confirmed Last Taken Type acetaminophen 160 mg/5 mL oral 960 mg FEEDING TUBE BID 06/29/21 06/29/21 06/29/21 History liquid benztropine 0.5 mg tablet 0.5 mg FEEDING TUBE BID 06/29/21 06/29/21 06/29/21 History clonazepam 0.5 mg tablet 0.5 mg FEEDING TUBE DAILY@1800 06/29/21 06/29/21 06/28/21 History famotidine 20 mg tablet 20 mg FEEDING TUBE DAILY@1800 06/29/21 06/29/21 06/28/21 History haloperidol 5 mg tablet 5 mg FEEDING TUBE DAILY@1800 06/29/21 06/29/21 06/28/21 History levothyroxine 125 mcg tablet 125 mcg FEEDING TUBE DAILY@0600 06/29/21 06/29/21 06/29/21 History levothyroxine 25 mcg tablet 12.5 mcg FEEDING TUBE DAILY@0600 06/29/21 06/29/21 06/29/21 History melatonin 3 mg tablet 6 mg FEEDING TUBE DAILY@1800 06/29/21 06/29/21 06/28/21 Hi story polyethylene glycol 3350 17 gram 17 g FEEDING TUBE DAILY@1800 06/29/21 06/29/21 06/28/21 History oral powder packet quetiapine 100 mg tablet 100 mg FEEDING TUBE BEDTIME 06/29/21 06/29/21 06/28/21 History quetiapine 25 mg tablet 50 mg FEEDING TUBE DAILY@0600 06/29/21 06/29/21 06/29/21 History sennosides 8.6 mg-docusate sodium 2 tab-cap PO BID 06/29/21 06/29/21 06/29/21 History 50 mg tablet (Senna with Docusate Sodium) valproic acid (as sodium salt) 250 500 mg FEEDING TUBE BID 06/29/21 06/29/21 06/29/21 History mg/5 mL oral solution Physical Exam Vital Signs and Narrative: Vital Signs: Last Vital Signs Temp 98.9 F 06/29/21 18:00 Pulse 126 H 06/29/21 18:09 Resp 17 06/29/21 18:09 BP 106/62 06/29/21 18:09 Pulse Ox 95 06/29/21 18:09 BMI result Body Mass Index 27.6 Gen: Appears be in no acute distress HEENT: NCAT, Moist mucosa. Pulmonary: Vesicular breath sounds, fair air entry CVS: Normal S1-S2 Abdomen: BS+, Soft, Nontender; left lower extremity is warm, tender, erythematous; Extremities: Warm well perfused Neuro: Alert and awake. Results Labs CBC and Chem 7: 06/29/21 15:55 06/29/21 16:32 Labs: Laboratory Results - last 24 hr 06/29/21 06/29/21 06/29/21 15:55 15:55 16:16 MCV 92.7 MCH 31.6 MCHC 34.1 RDW 13.6 Plt Count 120 L MPV 12.6 H Immature Gran % (Auto) 0.6 H Neut % (Auto) 73.5 H Lymph % (Auto) 18.9 L [place] % (Auto) 6.6 Eos % (Auto) 0.0 Baso % (Auto) 0.4 Lymph # (Auto) 1.6 [place] # (Auto) 0.5 Eos # (Auto) 0.0 Baso # (Auto) 0.0 Abs Immat Gran (auto) 0.05 H Absolute Neuts (auto) 6.1 Absolute Nucleated RBC 0.000 Nucleated RBC % (auto) 0.0 Anion Gap Estim Creat Clear Calc Estimated GFR Random Glucose Lactic Acid 2.3 H* Calcium Total Bilirubin Direct Bilirubin AST ALT Alkaline Phosphatase Troponin I High Sens 6.2 B-Natriuretic Peptide 35 Total Protein Albumin Lipase Urine Color Urine Appearance Urine pH Ur Specific Peyton Urine Protein Urine Glucose (UA) Urine Ketones Urine Blood Urine Nitrite Ur Leukocyte Esterase Urine RBC Urine WBC Ur Squamous Epith Cells Amorphous Sediment Urine Bacteria Urine Mucus Influenza Type A (PCR) Influenza Type B (PCR) RSV RNA Qual (PCR) SARS-CoV-2 RNA (RT-PCR) 06/29/21 06/29/21 06/29/21 16:32 17:11 17:25 MCV MCH MCHC RDW Plt Count MPV Immature Gran % (Auto) Neut % (Auto) Lymph % (Auto) [place] % (Auto) Eos % (Auto) Baso % (Auto) Lymph # (Auto) [place] # (Auto) Eos # (Auto) Baso # (Auto) Abs Immat Gran (auto) Absolute Neuts (auto) Absolute Nucleated RBC Nucleated RBC % (auto) Anion Gap 16 Estim Creat Clear Calc 66.8 Estimated GFR 57 Random Glucose 100 Lactic Acid 1.9 Calcium 8.3 L Total Bilirubin 0.6 Direct Bilirubin 0.2 AST 47 H ALT 35 Alkaline Phosphatase 79 Troponin I High Sens B-Natriuretic Peptide Total Protein 6.3 L Albumin 2.8 L Lipase 16 Urine Color Urine Appearance Urine pH Ur Specific Peyton Urine Protein Urine Glucose (UA) Urine Ketones Urine Blood Urine Nitrite Ur Leukocyte Esterase Urine RBC Urine WBC Ur Squamous Epith Cells Amorphous Sediment Urine Bacteria Urine Mucus Influenza Type A (PCR) NEGATIVE Influenza Type B (PCR) NEGATIVE RSV RNA Qual (PCR) NEGATIVE SARS-CoV-2 RNA (RT-PCR) NEGATIVE 06/29/21 17:38 MCV MCH MCHC RDW Plt Count MPV Immature Gran % (Auto) Neut % (Auto) Lymph % (Auto) [place] % (Auto) Eos % (Auto) Baso % (Auto) Lymph # (Auto) [place] # (Auto) Eos # (Auto) Baso # (Auto) Abs Immat Gran (auto) Absolute Neuts (auto) Absolute Nucleated RBC Nucleated RBC % (auto) Anion Gap Estim Creat Clear Calc Estimated GFR Random Glucose Lactic Acid Calcium Total Bilirubin Direct Bilirubin AST ALT Alkaline Phosphatase Troponin I High Sens B-Natriuretic Peptide Total Protein Albumin Lipase Urine Color YELLOW Urine Appearance CLEAR Urine pH 6.0 Ur Specific Peyton 1.025 Urine Protein 1+ H Urine Glucose (UA) NEG Urine Ketones NEG Urine Blood TRACE Urine Nitrite NEG Ur Leukocyte Esterase NEG Urine RBC 10-14 H Urine WBC 0-2 Ur Squamous Epith Cells TRACE Amorphous Sediment TRACE Urine Bacteria NONE Urine Mucus TRACE Influenza Type A (PCR) Influenza Type B (PCR) RSV RNA Qual (PCR) SARS-CoV-2 RNA (RT-PCR) Imaging Radiologist's Impressions: Impressions Chest X-Ray 06/29/21 16:17 IMPRESSION: No gross lobar consolidation. Assessment and Plan (1) Cellulitis: Qualifiers: Laterality: left Site of cellulitis: extremity Site of cellulitis of extremity: lower extremity Qualified Code(s): L03.116 - Cellulitis of left lower limb Status: Acute (2) Fever: Status: Acute Plan 60-year-old male with a past history of hypertension, hypothyroidism, dysphagia status post G-tube, COPD, dementia, schizophrenia, osteoarthritis, history of aspiration pneumonia; presented to the hospital today with a chief complaint fever/altered mental status[facility]. Left lower extremity cellulitis: Continue Zosyn. Id consult. History of dysphagia: Status post G-tube. Patient on tube feeds. Nutrition consult. Continue home medications via G-tube. Aspiration precautions History of dementia/schizophrenia: Continue home benztropine, clonazepam, Haldol, Seroquel, valproic acid History of COPD: Stable. Arcadio [email or web address] History of hypothyroidism: Continue home levothyroxine DVT prophylaxis: Subcu heparin Code status: Full code Quality Stroke Does the patient have a stroke diagnosis?: No VTE Prior VTE?: No VTE Risk Level:: Medical - moderate - high VTE Device Contraindication: Treatment Not Indicated VTE Drug Contraindication: N/A - Med Ordered
[2021-06-29] MEDS: Benztropine Mesylate 0.5 MG TABLET G-TUBE (20:54)
[2021-06-29] MEDS: QUEtiapine Fumarate 100 MG TABLET G-TUBE (20:54)
[2021-06-29] MEDS: Heparin Sodium,Porcine 5,000 UNIT/ML VIAL 5000 UNIT SUBCUT (20:55)
[2021-06-29] MEDS: Sennosides/Docusate Sodium TABLET 2 TAB PO (20:56)
[2021-06-29] MEDS: 0.9 % Sodium Chloride 1,000 ML 50 ML IVCONT (23:40)
[2021-06-29] MEDS: Piperacillin Sodium/Tazobactam 3.375 GM in 0.9 % Sodium Chloride 50 ML IV (23:49)
[2021-06-30] VITALS (10 sets, daily range): BP systolic 89–106; BP diastolic 58–83; PULSE 93–107; RESP 16–22; TEMP 35.8–37; O2SAT 91–100; BMI 27.6
[2021-06-30] MEDS: Levothyroxine Sodium 25 MCG TABLET 12.5 MCG G-TUBE ×2 (05:23→05:38)
[2021-06-30] MEDS: Heparin Sodium,Porcine 5,000 UNIT/ML VIAL 5000 UNIT SUBCUT ×3 (05:23→18:07)
[2021-06-30 06:55] LABS: Mean Corpuscular HGB Conc 32.5 g/dl (31.0-36.0); Mean Corpuscular Hemoglobin 30.8 pg (27.0-33.0); Mean Corpuscular Volume 94.8 fL (80.0-98.0); Platelet Count 108 X10*3/uL (160-400); Red Blood Count 4.22 X10*6/uL (4.60-5.80); Red Cell Distribution Width 13.8 % (11.0-16.0); White Blood Count 10.1 X10*3/uL (4.8-10.8)
[2021-06-30 07:00] LABS: Anion Gap 12 (12-20); Blood Urea Nitrogen 20 mg/dL (9-16); Calcium 8.2 mg/dL (8.4-10.2); Carbon Dioxide 24 mmol/L (22-29); Chloride 104 mmol/L (96-108); Creatinine Clr Calc Pharmacy 99.1; Estimated Glomerular Filt Rate > 60; Glucose Random 76 mg/dL (60-115); Sodium 135 mmol/L (135-145)
[2021-06-30 07:30] LABS: Band Neutrophils Percent 35 % (3-5); Lymphocytes Absolute Manual 1.2 X10*3/uL (1.2-4.9); Lymphocytes Percent Manual 12 % (20-40); Monocytes Absolute Manual 0.2 X10*3/uL (0.1-1.2); Monocytes Percent Manual 2 % (2-11); Neutrophils Absolute Manual 8.7 X10*3/uL (2.0-8.3); Neutrophils Percent Manual 51 % (45-73)
[2021-06-30 07:31] LABS: Hypochromasia 1+ (5-14) /OIF; Platelet Estimate DECREASED (NORMAL); Platelet Morphology Comment NORMAL; RBC Morphology NOTED
[2021-06-30 07:32] LABS: Toxic Vacuolation PRESENT
[2021-06-30] MEDS: Piperacillin Sodium/Tazobactam 3.375 GM in 0.9 % Sodium Chloride 50 ML IV ×3 (07:42→18:08)
[2021-06-30] MEDS: 0.9 % Sodium Chloride Flush 3 ML SYRINGE IVFLUSH ×2 (07:43→19:34)
--- NOTE | 2021-06-30 07:53 | PHA.PROG ---
Admission Date/Time: June 29, 2021 19:15 Indication: BACTEREMIA Weight in k.5 kg Adjusted body weight in K.6 [place] body weight in K.6 Obesity Dosing Indication % IBW: 19% OVERWEIGHT Serum Creatinine - Last 168 Hours 06/29/21 06/30/21 16:32 06:15 Creatinine 1.29 0.87 Estimated CrCl and GFR - Last 168 Hours 06/29/21 06/30/21 16:32 06:15 Estim Creat Clear Calc 66.8 99.1 Estimated GFR 57 > 60 Vancomycin Loading Dose: 1750 MG Current Vancomycin Dosing Regimen:1250 MG Q12 HOURS Vancomycin Monitoring using AUC goal of 400 - 600 range with trough as surrogate marker:AUC 555 Date and Time for next Vancomycin Level to be drawn: Pharmacist Comments on Vancomycin Plan:DUE TO SERIOUS CONDITION BACTEREMIA, CHOSE MORE AGGRESSIVE DOSING OF 1250 MG Q12 HOURS TO GET THERAPEUTIC FASTER, WILL CHECK A LEVEL ARTEMIO MORNING TO SEE WHERE WE ARE AT Vancomycin dosing will take advantage of [employer] as a clinical decision support tool that uses Bayesian modeling to calculate individual patient's pharmacokinetic parameters and forecast the patient's drug concentration time course with the target goal AUC 24 range of 400 - 600 mg/L/hr.
[2021-06-30] MEDS: vancomycin HCL 1,250 MG in 0.9 % Sodium Chloride 250 ML 166.67 MG IV ×2 (09:27→19:29)
[2021-06-30] MEDS: QUEtiapine Fumarate 50 MG TABLET G-TUBE (09:42)
[2021-06-30] MEDS: Sennosides/Docusate Sodium TABLET 2 TAB PO ×2 (09:42→19:37)
[2021-06-30] MEDS: Benztropine Mesylate 0.5 MG TABLET G-TUBE ×2 (09:42→19:36)
--- NOTE | 2021-06-30 09:45 | PC.NURSE ---
pt alert but really difficult to understand, speech very garbled, left entire side of the pt from upper hip to the leg red/almost like rash appearance/warm to touch pt has a g-tube in place
--- NOTE | 2021-06-30 10:06 | MHC.CM.PN ---
Patient is a LTC Patient and bed hold at [facility]. Returning to [facility] is the goal and CM has initiated and will follow for dc planning. A detailed message was left for Guardian/Glen @ [phone], regarding the IMM and the original will be mailed certified letter to him and a copy placed on the chart.
--- NOTE | 2021-06-30 11:22 | P.PNIM_ITS ---
Subjective Subjective Date of Service: 07/01/21 Interval History: 60-year-old male with past medical history of schizophrenia, dementia, hypertension, hypothyroidism,COPD, pneumonia, aspiration, history of dysphagia has gastrostomy tube with continuous feeding, [facility] of altered mental status, dyspnea and fever.? Patient was noted to have significant redness and warmth to the left hip and left lower extremity, with increased white blood cell count, increased respiratory rate, increased shortness of breath, increased heart rate, increased cough, patient in ED noted to be tachypneic, tachycardia, chest x-ray showed no infection patient was noted to have significant left lower extremity cellulitis , extending all the way to the upper back, labs showed elevated lactic acid, and normal WBC patient unable to provide meaningful history due to underlying dementia and dysarthric speech. Review of Systems Review of Systems: Yes Unobtainable due to mental status Physical Exam Vital Signs: Vital Signs: Last Vital Signs Temp 97.3 F 06/30/21 06:00 Pulse 106 H 06/30/21 07:49 Resp 18 06/30/21 07:49 BP 104/64 06/30/21 07:49 Pulse Ox 93 06/30/21 07:49 BMI result Body Mass Index 27.6 Const: Other: General awake, alert, no acute distress. \ HEENT pupil equal round reactive to light and accommodation Neck no JVD. CVS regular rate rhythm, Respiratory coarse breath sounds, rhonchi,no respiratory distress Gastrointestinal abdomen soft, nontender, bowel sounds audible Extremities no edema/ no redness right lower extremity, left lower extremity significant erythema extending from lower leg all the way to left upper back, left chest, blanches on palpation, warm to touch, no areas of fluctuation, old scar left leg likely prior graft surgery, Neuro speech dysarthric, moving all 4 extremities, atrophy of lower legs and foot deformity Objective Data Active Medications Acetaminophen (Acetaminophen 325 Mg Tablet) 650 mg PO Q6H PRN PRN Reason: Pain, Mild (Pain Scale 1-3) Acetaminophen (Acetaminophen Child Oral Susp 160 Mg/5 Ml Oral.Susp) 960 mg G- TUBE BID [facility] Last Admin: 06/30/21 09:41 Dose: 960 mg Documented by: ANNE Benztropine Mesylate (Benztropine Mesylate 0.5 Mg Tablet) 0.5 mg G-TUBE BID [facility] Last Admin: 06/30/21 09:42 Dose: 0.5 mg Documented by: ANNE Clonazepam (Clonazepam 0.5 Mg Tablet) 0.5 mg G-TUBE DAILY@1800 [facility] Famotidine (Famotidine 20 Mg Tablet) 20 mg G-TUBE DAILY@1800 [facility] Haloperidol (Haloperidol 5 Mg Tablet) 5 mg G-TUBE DAILY@1800 [facility] Heparin Sodium (Porcine) (Heparin Sodium,Porcine 5,000 Unit/Ml Vial) 5,000 unit SUBCUT Q8H [facility] Last Admin: 06/30/21 05:38 Dose: 5,000 unit Documented by: MART Sodium Chloride (Ns) 1,000 mls @ 50 mls/hr IVCONT .Q20H [facility] Last Admin: 06/29/21 23:40 Dose: 50 mls/hr Documented by: MART Piperacillin Sod/Tazobactam (Sod 3.375 gm/ Sodium Chloride) 50 mls @ 100 mls/hr IV Q6H [facility] Last Infusion: 06/30/21 08:45 Dose: 0 mls/hr Documented by: ANNE Vancomycin HCl 1,250 mg/ (Sodium Chloride) 250 mls @ 166.667 mls/hr IV Q12H [facility] Last Admin: 06/30/21 09:27 Dose: 166.67 mls/hr Documented by: ANNE Levothyroxine Sodium (Levothyroxine Sodium 25 Mcg Tablet) 12.5 mcg G-TUBE DAILY@0600 [facility] Last Admin: 06/30/21 05:38 Dose: 12.5 mcg Documented by: MART Melatonin (Melatonin 3 Mg Tablet) 6 mg G-TUBE DAILY@1800 [facility] Pharmacy Consult (Consult Rx Vancomycin Dosing) 1 each MISCELLANE DAILY PRN PRN Reason: Consult order Pharmacy Consult (Consult Rx Perform Med Rec) 1 each MISCELLANE ONCE PRN PRN Reason: Consult order Pharmacy Consult (Consult Rx Vancomycin Dosing) 1 each MISCELLANE DAILY PRN PRN Reason: Consult order Polyethylene Glycol (Polyethylene Glycol 3350 17 Gm Powd.Pack) 17 gm G-TUBE DAILY@1800 [facility] Quetiapine Fumarate (Quetiapine Fumarate 50 Mg Tablet) 50 mg G-TUBE DAILY [facility] Last Admin: 06/30/21 09:42 Dose: 50 mg Documented by: ANNE Quetiapine Fumarate (Quetiapine Fumarate 100 Mg Tablet) 100 mg G-TUBE BEDTIME [facility] Last Admin: 06/29/21 20:54 Dose: 100 mg Documented by: SUELLEN Senna/Docusate Sodium (Sennosides/Docusate Sodium Tablet) 2 tab PO BID [facility] Last Admin: 06/30/21 09:42 Dose: 2 tab Documented by: ANNE Sodium Chloride (0.9 % Sodium Chloride Flush 3 Ml Syringe) 3 ml IVFLUSH QSHIFT [facility] Last Admin: 06/30/21 07:43 Dose: 3 ml Documented by: ANNE Valproic Acid (Valproic Acid (As Sodium Salt) 250 Mg/5 Ml Solution) 500 mg G- TUBE BID [facility] Last Admin: 06/30/21 09:41 Dose: 500 mg Documented by: ANNE Labs CBC & Chem 7: 06/30/21 06:16 07/01/21 05:50 Labs: Laboratory Results - last 24 hr 06/29/21 06/29/21 06/29/21 15:55 15:55 16:16 MCV 92.7 MCH 31.6 MCHC 34.1 RDW 13.6 Plt Count 120 L MPV 12.6 H Immature Gran % (Auto) 0.6 H Neut % (Auto) 73.5 H Lymph % (Auto) 18.9 L [place] % (Auto) 6.6 Eos % (Auto) 0.0 Baso % (Auto) 0.4 Lymph # (Auto) 1.6 [place] # (Auto) 0.5 Eos # (Auto) 0.0 Baso # (Auto) 0.0 Abs Immat Gran (auto) 0.05 H Absolute Neuts (auto) 6.1 Absolute Nucleated RBC 0.000 Nucleated RBC % (auto) 0.0 Neutrophils % (Manual) Band Neutrophils % Lymphocytes % (Manual) Monocytes % (Manual) Abs Neuts (Manual) Lymphocytes # (Manual) Monocytes # (Manual) Toxic Vacuolation Platelet Estimate Plt Morphology Comment RBC Morphology Hypochromasia Anion Gap Estim Creat Clear Calc Estimated GFR Random Glucose Lactic Acid 2.3 H* Calcium Total Bilirubin Direct Bilirubin AST ALT Alkaline Phosphatase Troponin I High Sens 6.2 B-Natriuretic Peptide 35 Total Protein Albumin Lipase Urine Color Urine Appearance Urine pH Ur Specific [place] Urine Protein Urine Glucose (UA) Urine Ketones Urine Blood Urine Nitrite Ur Leukocyte Esterase Urine RBC Urine WBC Ur Squamous Epith Cells Amorphous Sediment Urine Bacteria Urine Mucus Influenza Type A (PCR) Influenza Type B (PCR) RSV RNA Qual (PCR) SARS-CoV-2 RNA (RT-PCR) 06/29/21 06/29/21 06/29/21 16:32 17:11 17:25 MCV MCH MCHC RDW Plt Count MPV Immature Gran % (Auto) Neut % (Auto) Lymph % (Auto) [place] % (Auto) Eos % (Auto) Baso % (Auto) Lymph # (Auto) [place] # (Auto) Eos # (Auto) Baso # (Auto) Abs Immat Gran (auto) Absolute Neuts (auto) Absolute Nucleated RBC Nucleated RBC % (auto) Neutrophils % (Manual) Band Neutrophils % Lymphocytes % (Manual) Monocytes % (Manual) Abs Neuts (Manual) Lymphocytes # (Manual) Monocytes # (Manual) Toxic Vacuolation Platelet Estimate Plt Morphology Comment RBC Morphology Hypochromasia Anion Gap 16 Estim Creat Clear Calc 66.8 Estimated GFR 57 Random Glucose 100 Lactic Acid 1.9 Calcium 8.3 L Total Bilirubin 0.6 Direct Bilirubin 0.2 AST 47 H ALT 35 Alkaline Phosphatase 79 Troponin I High Sens B-Natriuretic Peptide Total Protein 6.3 L Albumin 2.8 L Lipase 16 Urine Color Urine Appearance Urine pH Ur Specific [place] Urine Protein Urine Glucose (UA) Urine Ketones Urine Blood Urine Nitrite Ur Leukocyte Esterase Urine RBC Urine WBC Ur Squamous Epith Cells Amorphous Sediment Urine Bacteria Urine Mucus Influenza Type A (PCR) NEGATIVE Influenza Type B (PCR) NEGATIVE RSV RNA Qual (PCR) NEGATIVE SARS-CoV-2 RNA (RT-PCR) NEGATIVE 06/29/21 06/30/21 06/30/21 17:38 06:15 06:16 MCV 94.8 MCH 30.8 MCHC 32.5 RDW 13.8 Plt Count 108 L MPV 13.0 H Immature Gran % (Auto) Cancelled Neut % (Auto) Cancelled Lymph % (Auto) Cancelled [place] % (Auto) Cancelled Eos % (Auto) Cancelled Baso % (Auto) Cancelled Lymph # (Auto) Cancelled [place] # (Auto) Cancelled Eos # (Auto) Cancelled Baso # (Auto) Cancelled Abs Immat Gran (auto) Cancelled Absolute Neuts (auto) Cancelled Absolute Nucleated RBC 0.000 Nucleated RBC % (auto) 0.0 Neutrophils % (Manual) 51 Band Neutrophils % 35 H Lymphocytes % (Manual) 12 L Monocytes % (Manual) 2 Abs Neuts (Manual) 8.7 H Lymphocytes # (Manual) 1.2 Monocytes # (Manual) 0.2 Toxic Vacuolation PRESENT Platelet Estimate DECREASED Plt Morphology Comment NORMAL RBC Morphology NOTED Hypochromasia 1+ (5-14) Anion Gap 12 Estim Creat Clear Calc 99.1 Estimated GFR > 60 Random Glucose 76 Lactic Acid Calcium 8.2 L Total Bilirubin Direct Bilirubin AST ALT Alkaline Phosphatase Troponin I High Sens B-Natriuretic Peptide Total Protein Albumin Lipase Urine Color YELLOW Urine Appearance CLEAR Urine pH 6.0 Ur Specific [place] 1.025 Urine Protein 1+ H Urine Glucose (UA) NEG Urine Ketones NEG Urine Blood TRACE Urine Nitrite NEG Ur Leukocyte Esterase NEG Urine RBC 10-14 H Urine WBC 0-2 Ur Squamous Epith Cells TRACE Amorphous Sediment TRACE Urine Bacteria NONE Urine Mucus TRACE Influenza Type A (PCR) Influenza Type B (PCR) RSV RNA Qual (PCR) SARS-CoV-2 RNA (RT-PCR) Microbiology Microbiology Results: Microbiology 06/29/21 15:56 Blood Culture - Preliminary Blood - Venous Gram positive cocci Assessment and Plan (1) Severe sepsis: Status: Acute (2) Cellulitis of left lower limb: Status: Acute Plan 60-year-old male with a past history of hypertension, hypothyroidism, dysphagia status post G-tube, COPD, dementia, schizophrenia, osteoarthritis, history of aspiration pneumonia; sent to [facility] with a chief complaint fever/altered mental status/cough from the senior care. Severe sepsis due to Cellulitis of Left lower extremity starting from left ankle to hip and extending to left trunk see picture from ED/hpi note. patient met sepsis criteria due to tachypnea tachycardia, lactic acidosis, hypotension due to extensive cellulitis extending from left leg all the way to left upper back. sepsis focused exam done. Continue Zosyn and IV vanco daily 1 follow blood culture.? await Id input. History of dysphagia: Status post G-tube, case discussed with booster assembler will resume G-tube feedings continue aspiration precaution . History of dementia/schizophrenia: Continue home benztropine, clonazepam, Haldol, Seroquel, and valproic acid. History of COPD:? tachypnea improved, continue DuoNebs p.r.n. chest x-ray showed no infiltrate. History of hypothyroidism:? Continue levothyroxine home dose. DVT prophylaxis:? Subcu heparin Code status: Full code patient will need continued inpatient stay due to severe sepsis related entire left lower extremity cellulitis and extending to left trunk requiring IV antibiotics vanco and Zosyn. Quality Stroke Does the patient have a stroke diagnosis?: No VTE Prior VTE?: No VTE Risk Level:: Medical - moderate - high VTE Device Contraindication: Treatment Not Indicated VTE Drug Contraindication: N/A - Med Ordered
--- NOTE | 2021-06-30 13:04 | PC.NURSE ---
pt's continuos g-tube feeding of osmolite continuous up and running at 60ml/hr, this is the same feedings that the pt gets at [facility]
--- NOTE | 2021-06-30 15:47 | W.PM.IDCN ---
History of Present Illness Data of Consult Service Date: 06/30/21 Requesting physician: Danika Yuan Primary Care Provider: Vandana De León MD HPI Reason for consult: rash,fever He [facility] hospital [facility] with rash to left hip to knee extending up back. He also has bacteremia,gram positive cocci. He is alert and has no other complaints Review of Systems Review of Systems: Yes all other systems are reviewed and are negative [facility] Past Medical History Medical History COPD (chronic obstructive pulmonary disease) Dementia Dysphagia Gastrostomy in place Hypertension Hypothyroidism Osteoarthritis Schizophrenia Family History Family history: reviewed and not pertinent Social History Social History Patient Tobacco Use Status: Tobacco use Unknown Advance Directives: No Advance Directives Information Provided: No service: No Current occupational status: retired [employer] Allergies Allergy/AdvReac Type Severity Reaction Status Date / Time No Known Allergies Allergy Unknown Verified 04/03/21 11:33 [No Known Allergies*] Active Medications: Current Medications Acetaminophen (Acetaminophen 325 Mg Tablet) 650 mg PO Q6H PRN PRN Reason: Pain, Mild (Pain Scale 1-3) Acetaminophen (Acetaminophen Oral Liquid 650 Mg/20.3 Ml Solution) 960 mg G-TUBE BID [facility] Benztropine Mesylate (Benztropine Mesylate 0.5 Mg Tablet) 0.5 mg G-TUBE BID [facility] Last Admin: 06/30/21 09:42 Dose: 0.5 mg Documented by: Clonazepam (Clonazepam 0.5 Mg Tablet) 0.5 mg G-TUBE DAILY@1800 [facility] Famotidine (Famotidine 20 Mg Tablet) 20 mg G-TUBE DAILY@1800 [facility] Haloperidol (Haloperidol 5 Mg Tablet) 5 mg G-TUBE DAILY@1800 [facility] Heparin Sodium (Porcine) (Heparin Sodium,Porcine 5,000 Unit/Ml Vial) 5,000 unit SUBCUT Q8H [facility] Last Admin: 06/30/21 05:38 Dose: 5,000 unit Documented by: Sodium Chloride (Ns) 1,000 mls @ 50 mls/hr IVCONT .Q20H [facility] Last Admin: 06/29/21 23:40 Dose: 50 mls/hr Documented by: Piperacillin Sod/Tazobactam (Sod 3.375 gm/ Sodium Chloride) 50 mls @ 100 mls/hr IV Q6H [facility] Last Admin: 06/30/21 14:20 Dose: 100 mls/hr Documented by: Vancomycin HCl 1,250 mg/ (Sodium Chloride) 250 mls @ 166.667 mls/hr IV Q12H [facility] Last Infusion: 06/30/21 12:06 Dose: Infused Documented by: Levothyroxine Sodium (Levothyroxine Sodium 25 Mcg Tablet) 12.5 mcg G-TUBE DAILY@0600 [facility] Last Admin: 06/30/21 05:38 Dose: 12.5 mcg Documented by: Levothyroxine Sodium (Levothyroxine Sodium 125 Mcg Tablet) 125 mcg G-TUBE DAILY@0600 [facility] Melatonin (Melatonin 3 Mg Tablet) 6 mg G-TUBE DAILY@1800 [facility] Pharmacy Consult (Consult Rx Vancomycin Dosing) 1 each MISCELLANE DAILY PRN PRN Reason: Consult order Pharmacy Consult (Consult Rx Perform Med Rec) 1 each MISCELLANE ONCE PRN PRN Reason: Consult order Pharmacy Consult (Consult Rx Vancomycin Dosing) 1 each MISCELLANE DAILY PRN PRN Reason: Consult order Polyethylene Glycol (Polyethylene Glycol 3350 17 Gm Powd.Pack) 17 gm G-TUBE DAILY@1800 [facility] Quetiapine Fumarate (Quetiapine Fumarate 50 Mg Tablet) 50 mg G-TUBE DAILY [facility] Last Admin: 06/30/21 09:42 Dose: 50 mg Documented by: Quetiapine Fumarate (Quetiapine Fumarate 100 Mg Tablet) 100 mg G-TUBE BEDTIME [facility] Last Admin: 06/29/21 20:54 Dose: 100 mg Documented by: Senna/Docusate Sodium (Sennosides/Docusate Sodium Tablet) 2 tab PO BID [facility] Last Admin: 06/30/21 09:42 Dose: 2 tab Documented by: Sodium Chloride (0.9 % Sodium Chloride Flush 3 Ml Syringe) 3 ml IVFLUSH QSHIFT [facility] Last Admin: 06/30/21 07:43 Dose: 3 ml Documented by: Valproic Acid (Valproic Acid (As Sodium Salt) 250 Mg/5 Ml Solution) 500 mg G-TUBE BID [facility] Last Admin: 06/30/21 09:41 Dose: 500 mg Documented by: Home Medications Medication Instructions Recorded Confirmed Last Taken Type acetaminophen 160 mg/5 mL oral 960 mg FEEDING TUBE BID 06/29/21 06/29/2122 History liquid benztropine 0.5 mg tablet 0.5 mg FEEDING TUBE BID 06/29/21 06/29/21 06/29/21 History clonazepam 0.5 mg tablet 0.5 mg FEEDING TUBE DAILY@1800 06/29/21 06/29/21 06/28/21 History famotidine 20 mg tablet 20 mg FEEDING TUBE DAILY@1800 06/29/21 06/29/21 06/28/21 History haloperidol 5 mg tablet 5 mg FEEDING TUBE DAILY@1800 06/29/21 06/29/21 06/28/21 History levothyroxine 125 mcg tablet 125 mcg FEEDING TUBE DAILY@0600 06/29/21 06/29/21 06/29/21 History levothyroxine 25 mcg tablet 12.5 mcg FEEDING TUBE DAILY@0600 06/29/21 06/29/21 06/29/21 History melatonin 3 mg tablet 6 mg FEEDING TUBE DAILY@1800 06/29/21 06/29/21 06/28/21 History polyethylene glycol 3350 17 gram 17 g FEEDING TUBE DAILY@1800 06/29/21 06/29/21 06/28/21 History oral powder packet quetiapine 100 mg tablet 100 mg FEEDING TUBE BEDTIME 06/29/21 06/29/21 06/28/21 History quetiapine 25 mg tablet 50 mg FEEDING TUBE DAILY@0606/29/21 06/29/21 06/29/21 History sennosides 8.6 mg-docusate sodium 2 tab-cap PO BID 06/29/21 06/29/21 06/29/21 History 50 mg tablet (Senna with Docusate Sodium) valproic acid (as sodium salt) 250 500 mg FEEDING TUBE BID 06/29/21 06/29/21 06/29/21 History mg/5 mL oral solution Physical Exam Vital Signs: Vital Signs: Last Vital Signs Temp 97.3 F 06/30/21 06:00 Pulse 98 06/30/21 14:06 Resp 18 06/30/21 14:06 BP 99/69 06/30/21 14:06 Pulse Ox 94 06/30/21 13:11 BMI result Body Mass Index 27.6 Const: General: cooperative HEENT: Head: Yes normal to inspection Mouth: Normal oral and palatal mucosa present Eyes: General: appearance normal, both eyes and all related structures Resp: Effort & Inspection: normal respiratory effort Cardio: Rate: regular rate Rhythm: regular rhythm GI: Palpation (GI): Soft to palpation and nontender Skin: Other: redness extending from patchy areas left leg up back to T9 Results Labs CBC & Chem 7: 06/30/21 06:16 06/30/21 06:15 Labs: Short CBC 06/29/21 06/30/21 Range/Units 15:55 06:16 WBC 8.2 10.1 (4.8-10.8) X10*3/uL Hgb 14.2 13.0 L (14.0-18.0) g/dl Hct 41.7 L 40.0 L (42.0-52.0) % Plt Count 120 L 108 L (160-400) X10*3/uL BMP 06/29/21 06/30/21 16:32 06:15 Sodium 132 L 135 Potassium 5.0 5.0 Chloride 101 104 Carbon Dioxide 20 L 24 BUN 31 H 20 H Creatinine 1.29 0.87 Calcium 8.3 L 8.2 L Liver Function 06/29/21 Range/Units 16:32 Total Bilirubin 0.6 (0.0-1.0) mg/dL Direct Bilirubin 0.2 (0.0-0.5) mg/dL AST 47 H (5-37) U/L ALT 35 (0-40) U/L Alkaline Phosphatase 79 (39-117) U/L Albumin 2.8 L (3.5-5.0) g/dL Urine 06/29/21 Range/Units 17:38 Urine Color YELLOW Urine Appearance CLEAR Urine pH 6.0 (5.0-8.0) Ur Specific [place] 1.025 (1.005-1.025) Urine Protein 1+ H (NEG-TRACE) MG/DL Urine Glucose (UA) NEG (NEG) MG/DL Microbiology Microbiology Results: Microbiology 06/29/21 15:56 Blood - Venous Blood Culture - Preliminary Gram positive cocci Assessment and Plan (1) Cellulitis of left lower limb: Status: Acute There is concern over staph or strep with bacteremia Endocarditis is possibility (2) Severe sepsis: Status: Acute (3) Fever: Status: Acute Plan Continue Vancomycin cover MRSA and Zosyn for now. Await blood cultures. Check echo
[2021-06-30] MEDS: polyethylene glycoL 3350 17 GM POWD.PACK G-TUBE (18:01)
[2021-06-30] MEDS: Melatonin 3 MG TABLET 6 MG G-TUBE (18:01)
[2021-06-30] MEDS: Famotidine 20 MG TABLET G-TUBE (18:02)
[2021-06-30] MEDS: HaloperidoL 5 MG TABLET G-TUBE (18:02)
[2021-06-30] MEDS: clonazePAM 0.5 MG TABLET G-TUBE (18:02)
[2021-06-30] MEDS: 0.9 % Sodium Chloride 1,000 ML 50 ML IVCONT (19:28)
[2021-06-30] MEDS: Acetaminophen Oral Liquid 650 MG/20.3 ML SOLUTION 960 MG G-TUBE (19:34)
[2021-06-30] MEDS: QUEtiapine Fumarate 100 MG TABLET G-TUBE (19:36)
[2021-07-01] MEDS: Piperacillin Sodium/Tazobactam 3.375 GM in 0.9 % Sodium Chloride 50 ML IV ×4 (02:36→18:58)
[2021-07-01] MEDS: Heparin Sodium,Porcine 5,000 UNIT/ML VIAL 5000 UNIT SUBCUT ×3 (02:37→18:57)
[2021-07-01] MEDS: Levothyroxine Sodium 25 MCG TABLET 12.5 MCG G-TUBE (05:23)
[2021-07-01] MEDS: Levothyroxine Sodium 125 MCG TABLET G-TUBE (05:23)
[2021-07-01 07:24] VITALS: BP 108/57; PULSE 93; RESP 17; TEMP 36.8; O2SAT 92
[2021-07-01] MEDS: Acetaminophen Oral Liquid 650 MG/20.3 ML SOLUTION 960 MG G-TUBE ×2 (07:54→22:48)
[2021-07-01 07:55] LABS: Creatinine Clr Calc Pharmacy 111.9; Estimated Glomerular Filt Rate > 60
[2021-07-01] MEDS: QUEtiapine Fumarate 50 MG TABLET G-TUBE (07:55)
[2021-07-01] MEDS: Benztropine Mesylate 0.5 MG TABLET G-TUBE ×2 (07:55→22:26)
[2021-07-01] MEDS: Sennosides/Docusate Sodium TABLET 2 TAB PO ×2 (07:55→22:25)
[2021-07-01] MEDS: 0.9 % Sodium Chloride Flush 3 ML SYRINGE IVFLUSH ×2 (07:56→18:57)
--- NOTE | 2021-07-01 08:07 | HE.PHANOTE ---
Patient trough came back at 19, cr is improving, new dose 1750 mg q24 h scheduled for 07/02 @0800, also scheduled a level for 07/01 @2000 to ensure pt is subtherapeutic.
--- NOTE | 2021-07-01 13:00 | CA_ITS ---
Transthoracic Echocardiogram Patient (Last, First, Middle): Rom Rose, Gender: Male Date of : 1960 Age: 60 Procedure Date: 07/01/2021 Procedure Type: Transthoracic Echocardiogram Location: S3E Height: 182.88 cm Weight: 92.08 kg BSA: 2.14 m2 Heart Rate: bpm BP: 108 / 57 mmHg Cap Coverer: Referring MD: Danika Yuan MD Scaffolder: Jose C Tipton MD Symptoms: sepsis bacteremia Study Quality: Technically Difficult DUE TO PT CONDITION ECG Rhythm: Sinus Conclusions: - 1. Technically extremely limited study due to poor windows 2. Cannot rule out endocarditis on this study 3. On some views LV systolic function appears preserved with LVEF of greater than 55% with impaired relaxation filling Findings Left Ventricle The left ventricle was not well visualized. Regional wall motion abnormalities can not be excluded due to suboptimal endocardial definition. Spectral Doppler is indicative of an impaired relaxation filling pattern. on some views LV systolic function appears to be preserved with LVEF of greater than 55% Right Ventricle The right ventricle was not well visualized. Atria The left atrium was not well visualized. The right atrium was not well visualized. Aortic Valve The aortic valve was not well visualized. Mitral Valve The mitral valve was not well visualized. Pulmonic Valve The pulmonic valve was not well visualized. Tricuspid Valve The tricuspid valve was not well visualized. Great Vessels The aorta was not well visualized. The pulmonary artery was not well visualized. Venous The inferior vena cava was not well visualized. Pericardium/Pleural The pericardium was not well visualized. Prior Study Comparison No prior study available for comparison. Recommendations, Care & Conclusions Consider a CANDACE if clinically appropriate. Measurements 2D Linear Measurements IVSd: 1.47 0.6-0.9/0.6-1.0 cm LVIDd: 2.87 3.9-5.3/4.2-5.9 cm LVIDd Index: 1.34 2.4-3.2/2.2-3.1 cm/m2 LVIDs: 2.11 2.0-3.6 cm LVPWd: 1.42 0.7-1.1 cm LA Diam: 3.50 2.7-3.8/3.0-4.0 cm LAIDs Index: 1.64 1.5-2.3 cm/m2 LV Mass: 174.16 67-162/88-224 g LV Mass Index: 81.38 43-95/49-115 g/m2 LVOT Diam: 2.50 3.0+(-)1.3 cm Mitral Valve MV Pk E: 0.62 MV PK A: 0.66 MV Decel Time: 127.00 E/A: 0.90 E'Lateral: 7.29 E'Medial: 15.70 E/E' Med: 3.90 E/E' Lat: 8.50 PHT: 37.00 MVA PHT: 5.95 Decel Pickett: 4.87 Aortic Valve AoV Pk Christo: 0.98 AoV Mn Christo: 0.62 AoV VTI: 0.17 AoV Pk Grad: 4.00 Aov Mn Grad: 2.00 ROSELINE Cont.VTI: 5.26 LVOT LVOT Pk Christo: 0.64 LVOT Mn Christo: 0.40 LVOT VTI: 0.18 LVOT Pk Grad: 2.00 LVOT Mn Grad: 1.00 LVOT Diam: 2.50 LVOT Area: 4.91 Diastolic Function MV Pk E: 0.62 MV Pk A: 0.66 E/A: 0.90 E'Medial: 15.70 E/E' Med: 3.90 E' Laterial: 7.29 E/E' Lat: 8.50 Tricuspid Valve TR Pk Christo: 1.95 TR Pk Grad: 15.00 RA Press: 3.00 RVSP: 18.00 Great Vessels Aorta Ao Asc: 3.20 2.1-3.4 cm Pulmonary Valve PV Pk Christo: 0.68 Peak PV Grad: 2.00 Updated in Other Vendor System with Status of Final Jose C Tipton MD electronically signed on 07/01/2021 4:58:51 PM with status of Final
--- NOTE | 2021-07-01 13:26 | MHC.CLN ---
F/U PT WITH PEG TUBE PT COMES FROM SNF -WAS TOLERATING OSMOLITE 1.2 AT 60ML/HR WITH 250ML FWF TID RECOMMEND TF OSMOLITE 1.5 AT MAX GOAL RATE 65ML/HR WITH 30ML PROSOURCE Q DAY WITH 240CC FREE WATER FLUSHES Q 4 HRS TO PROVIDE 2340KCALS (25KCALS/KG), 112.7G PROTEIN (1.2G/KG), 2629ML TOTAL WATER FROM FORMULA AND FLUSHES (28ML/KG) MONITOR TOLERANCE, RESIDUALS AND LYTES SEE ALSO FULL CLINICAL NUTRITION ASSESSMENT
--- NOTE | 2021-07-01 15:09 | P.PNIM_ITS ---
Subjective Subjective Date of Service: 07/01/21 Interval History: unable to obtain history due to underlying dementia/ dysarthric speech, blood cultures 1/2 positive for Gram-positive cocci, no acute overnight events. Review of Systems Review of Systems: Yes Unobtainable due to mental status Physical Exam Vital Signs: Vital Signs: Last Vital Signs Temp 98.2 F 07/01/21 07:24 Pulse 93 07/01/21 07:24 Resp 17 07/01/21 07:24 BP 108/57 L 07/01/21 07:24 Pulse Ox 92 07/01/21 07:24 BMI result Body Mass Index 27.6 Const: Other: General? Resting c omfortably, no acu te distress. HEENT pupil equal round reactive to light and accommodation . Neck no JVD. CVS ? regular rate rhy thm, Respiratory? coarse breath soun ds, rhonchi,no res piratory distress Gastrointestinal a bdomen soft, nonte nder, bowel sounds audible Extremiti es no edema/ no re dness right lower extremity, left lo wer extremity sign ificant erythema e xtending from lowe r leg all the way to left upper back , left chest, blan ches on palpation, warm to touch, no areas of fluctuat ion, old scar left leg likely prior graft surgery no significant change in last 24 hours, Neuro? speech dys arthric, moving al l 4 extremities, a trophy of lower le gs and foot deform ity ? Objective Data Active Medications Acetaminophen (Acetaminophen 325 Mg Tablet) 650 mg PO Q6H PRN PRN Reason: Pain, Mild (Pain Scale 1-3) Acetaminophen (Acetaminophen Oral Liquid 650 Mg/20.3 Ml Solution) 960 mg G-TUBE BID [facility] Last Admin: 07/01/21 07:54 Dose: 960 mg Documented by: VIRA Benztropine Mesylate (Benztropine Mesylate 0.5 Mg Tablet) 0.5 mg G-TUBE BID [facility] Last Admin: 07/01/21 07:55 Dose: 0.5 mg Documented by: VIRA Clonazepam (Clonazepam 0.5 Mg Tablet) 0.5 mg G-TUBE DAILY@1800 [facility] Last Admin: 06/30/21 18:02 Dose: 0.5 mg Documented by: DELMIS Famotidine (Famotidine 20 Mg Tablet) 20 mg G-TUBE DAILY@1800 [facility] Last Admin: 06/30/21 18:02 Dose: 20 mg Documented by: DELMIS Haloperidol (Haloperidol 5 Mg Tablet) 5 mg G-TUBE DAILY@1800 [facility] Last Admin: 06/30/21 18:02 Dose: 5 mg Documented by: DELMIS Heparin Sodium (Porcine) (Heparin Sodium,Porcine 5,000 Unit/Ml Vial) 5,000 unit SUBCUT Q8H [facility] Last Admin: 07/01/21 13:42 Dose: 5,000 unit Documented by: VIRA Piperacillin Sod/Tazobactam (Sod 3.375 gm/ Sodium Chloride) 50 mls @ 100 mls/hr IV Q6H [facility] Last Infusion: 07/01/21 14:35 Dose: 0 mls/hr Documented by: VIRA Vancomycin HCl 1,000 mg/Vancomycin HCl 750 mg/ Sodium Chloride 535 mls @ 267.5 mls/hr IV Q24H [facility] Levothyroxine Sodium (Levothyroxine Sodium 25 Mcg Tablet) 12.5 mcg G-TUBE DAILY@0600 [facility] Last Admin: 06/30/21 05:38 Dose: 12.5 mcg Documented by: MART Levothyroxine Sodium (Levothyroxine Sodium 125 Mcg Tablet) 125 mcg G-TUBE DAILY@0600 [facility] Last Admin: 07/01/21 05:23 Dose: 125 mcg Documented by: LAUREN Melatonin (Melatonin 3 Mg Tablet) 6 mg G-TUBE DAILY@1800 [facility] Last Admin: 06/30/21 18:01 Dose: 6 mg Documented by: DELMIS Pharmacy Consult (Consult Rx Vancomycin Dosing) 1 each MISCELLANE DAILY PRN PRN Reason: Consult order Pharmacy Consult (Consult Rx Perform Med Rec) 1 each MISCELLANE ONCE PRN PRN Reason: Consult order Pharmacy Consult (Consult Rx Vancomycin Dosing) 1 each MISCELLANE DAILY PRN PRN Reason: Consult order Polyethylene Glycol (Polyethylene Glycol 3350 17 Gm Powd.Pack) 17 gm G-TUBE DAILY@1800 [facility] Last Admin: 06/30/21 18:01 Dose: 17 gm Documented by: DELMIS Quetiapine Fumarate (Quetiapine Fumarate 50 Mg Tablet) 50 mg G-TUBE DAILY [facility] Last Admin: 07/01/21 07:55 Dose: 50 mg Documented by: VIRA Quetiapine Fumarate (Quetiapine Fumarate 100 Mg Tablet) 100 mg G-TUBE BEDTIME [facility] Last Admin: 06/30/21 19:36 Dose: 100 mg Documented by: LAUREN Senna/Docusate Sodium (Sennosides/Docusate Sodium Tablet) 2 tab PO BID [facility] Last Admin: 07/01/21 07:55 Dose: 2 tab Documented by: VIRA Sodium Chloride (0.9 % Sodium Chloride Flush 3 Ml Syringe) 3 ml IVFLUSH QSHIFT [facility] Last Admin: 07/01/21 07:56 Dose: 3 ml Documented by: VIRA Valproic Acid (Valproic Acid (As Sodium Salt) 250 Mg/5 Ml Solution) 500 mg G- TUBE BID [facility] Last Admin: 07/01/21 07:55 Dose: 500 mg Documented by: VIRA Labs CBC & Chem 7: 06/30/21 06:16 07/01/21 05:50 Labs: Laboratory Results - last 24 hr 07/01/21 07/01/21 05:50 05:50 Estim Creat Clear Calc 111.9 Estimated GFR > 60 Vancomycin Trough 19.0 Microbiology Microbiology Results: Microbiology 06/29/21 15:56 Blood Culture - Preliminary Blood - Venous Group G streptococcus 06/29/21 16:32 Blood Culture - Preliminary Blood - Venous No growth after 24 hours. Assessment and Plan (1) Severe sepsis: Status: Acute (2) Cellulitis of left lower limb: Status: Acute Plan 60-year-old male with a past history of hypertension, hypothyroidism, dysphagia status post G-tube, COPD, dementia, schizophrenia, osteoarthritis, history of aspiration pneumonia; sent to [facility] with a chief complaint fever/altered mental status/cough from the longterm. Severe sepsis due to Cellulitis of Left lower extremity starting from left ankle to hip and extending to left trunk see picture from ED/hpi note. all features of sepsis resolved. no recurrent fevers, WBC normal Continue Zosyn and IV vanco daily 2 blood culture 1/2 positive for gram-positive cocci, id recommend to continue above antibiotics, check echo. History of dysphagia: Status post G-tube, continue G-tube feedings, continue aspiration precaution . History of dementia/schizophrenia: Continue home benztropine, clonazepam, Haldol, Seroquel, and valproic acid. History of COPD:? tachypnea improved, continue DuoNebs p.r.n. chest x-ray showed no infiltrate. History of hypothyroidism:? Continue levothyroxine home dose. DVT prophylaxis:? Subcu heparin Code status: Full code patient will need continued inpatient stay due to severe sepsis related entire left lower extremity cellulitis and extending to left trunk requiring IV antibiotics vanco and Zosyn and now with bacteremia. Quality Stroke Does the patient have a stroke diagnosis?: No VTE Prior VTE?: No VTE Risk Level:: Medical - moderate - high VTE Device Contraindication: Treatment Not Indicated VTE Drug Contraindication: N/A - Med Ordered
[2021-07-01 15:19] VITALS: BP 99/89; PULSE 88; RESP 18; TEMP 36.3; O2SAT 92
--- NOTE | 2021-07-01 16:12 | MHC.CM.PN ---
nurse case management note electronic medical record reviewed and case discussed with hospitalist (patient has history f dementia dysarthic speech , on tube feeds 0 admitted [facility] where he resides with initial diagnosis of cellulites left lower ankle extending to knee and hip and some on trunk and back. per hospitlaist he requires cntinued inpatient stay for severe sepsis entire left lower extremity cellulits extending to trunk requiring iv abx vancomycin and zosyn , continued gt-feeds, and with bactermia, id physicians following discharge plan return back to [facility] on gt-tube feedings where he resides on bed hold, has guardian delmi [phone] will need [facility] transportation )
[2021-07-01] MEDS: polyethylene glycoL 3350 17 GM POWD.PACK G-TUBE (18:56)
[2021-07-01] MEDS: Famotidine 20 MG TABLET G-TUBE (18:56)
[2021-07-01] MEDS: HaloperidoL 5 MG TABLET G-TUBE (18:56)
[2021-07-01] MEDS: clonazePAM 0.5 MG TABLET G-TUBE (18:57)
[2021-07-01] MEDS: Melatonin 3 MG TABLET 6 MG G-TUBE (18:57)
[2021-07-01 20:39] LABS: Vancomycin Random 10.7 mcg/mL (15-20)
--- NOTE | 2021-07-01 20:49 | HE.PHANOTE ---
tROUGH THIS MORNING WAS 19, RANDOM LEVEL ENTERED 24H POST DOSE 10.7. ADJUSTING DOSE TO 1000 MG Q12H FOR PREDICTED AUC OF 476, TOX 10 %, TROUGH 15.1. NEXT TROUGH AND CR 07/02/21 @1900
--- NOTE | 2021-07-01 21:49 | PM.IDPN ---
Subjective Subjective Date of Service: 07/01/21 Critical Care Time (minutes): 15 Comment: He is somewhat alert. He has less redness back and leg Objective Data Labs CBC & Chem 7: 06/30/21 06:16 07/01/21 05:50 Labs: Laboratory Results - last 24 hr 07/01/21 07/01/21 07/01/21 05:50 05:50 20:04 Creatinine 0.77 Estim Creat Clear Calc 111.9 Estimated GFR > 60 Vancomycin Trough 19.0 Random Vancomycin 10.7 L Microbiology Microbiology Results: Microbiology 06/29/21 16:32 Blood - Venous Blood Culture - Preliminary No growth after 48 hours. 06/29/21 15:56 Blood - Venous Blood Culture - Preliminary Group G streptococcus Physical Exam Vital Signs: Vital Signs: Last Vital Signs Temp 97.4 F 07/01/21 15:19 Pulse 88 07/01/21 15:19 Resp 18 07/01/21 15:19 BP 99/89 07/01/21 15:19 Pulse Ox 92 07/01/21 15:19 BMI result Body Mass Index 27.6 Const: General: cooperative Resp: Effort & Inspection: normal respiratory effort Cardio: Rate: regular rate Rhythm: regular rhythm Peripheral pulses: femoral pulses present GI: Palpation (GI): Soft to palpation and nontender Assessment and Plan Assessment and plan (1) Cellulitis of left lower limb: Problem details: He has some improvement He has diarrhea Status: Acute (2) Severe sepsis: Status: Acute Plan Would give Ceftriaxone IV ,probably 14 days Check Cdiff if diarrhea continues Time Spent With Patient Time: Total time spent is greater than 50% in coordination of care (as documented) at patient's floor/unit and/or counseling patient:
[2021-07-01] MEDS: QUEtiapine Fumarate 100 MG TABLET G-TUBE (22:26)
[2021-07-01] MEDS: cefTRIAXone sodium 2 GM in 0.9 % Sodium Chloride 50 ML IV (22:27)
[2021-07-01 23:46] VITALS: BP 134/77; PULSE 100; RESP 18; TEMP 36.9; O2SAT 93
[2021-07-02] MEDS: 0.9 % Sodium Chloride Flush 3 ML SYRINGE IVFLUSH ×3 (00:10→17:50)
[2021-07-02] MEDS: Heparin Sodium,Porcine 5,000 UNIT/ML VIAL 5000 UNIT SUBCUT ×3 (03:02→17:50)
[2021-07-02] MEDS: Levothyroxine Sodium 125 MCG TABLET G-TUBE (05:32)
[2021-07-02] MEDS: Levothyroxine Sodium 25 MCG TABLET 12.5 MCG G-TUBE (05:33)
[2021-07-02 07:52] VITALS: BP 141/80; PULSE 100; RESP 19; TEMP 36.5; O2SAT 95
[2021-07-02] MEDS: Sennosides/Docusate Sodium TABLET 2 TAB PO (08:11)
[2021-07-02] MEDS: QUEtiapine Fumarate 50 MG TABLET G-TUBE (08:11)
[2021-07-02] MEDS: Benztropine Mesylate 0.5 MG TABLET G-TUBE ×2 (08:11→21:09)
[2021-07-02] MEDS: Acetaminophen Oral Liquid 650 MG/20.3 ML SOLUTION 960 MG G-TUBE ×2 (08:11→21:21)
--- NOTE | 2021-07-02 11:01 | MHC.CLN ---
F/U PT WITH SEVERE SEPSIS, REQUIRING IV ABT. TOLERATING CURRENT TUBE FEEDING AND FLUSH. RECOMMEND CONTINUE CURRENT ORDER. OSMOLITE 1.5 AT MAX GOAL RATE 65 ML/HR WITH 30 ML PROSOURCE Q DAY WITH 240 ML FREE WATER FLUSHES Q 4 HRS TO PROVIDE 2340 KCALS (25KCALS/KG), 112.7 G PROTEIN (1.2G/KG), 2629 ML TOTAL WATER FROM FORMULA AND FLUSHES (28ML/KG) MONITOR TOLERANCE, RESIDUALS, AND LYTES.
--- NOTE | 2021-07-02 12:20 | MHC.CM.PN ---
Per ROUNDS discussion, Patient is not yet medically cleared for dc (Cellulitis/IV ceftriaxone);returning to LTC at [facility] is the goal and CM will continue to follow.
--- NOTE | 2021-07-02 14:18 | HO.PM.IMPN ---
Subjective Subjective Date of Service: 07/02/21 Interval History: resting in bed comfortably, unable to obtain history due to dementia/dysarthric speech, no overnight events noted, blood culture positive for group G Streptococcus, no fevers in last 48 hours. Review of Systems Review of Systems: Yes Unobtainable due to mental status Physical Exam Vital Signs: Vital Signs: Last Vital Signs Temp 97.7 F 07/02/21 07:52 Pulse 100 07/02/21 07:52 Resp 19 07/02/21 07:52 BP 141/80 H 07/02/21 07:52 Pulse Ox 95 07/02/21 07:52 BMI result Body Mass Index 27.6 Const: Other: General? Resting comfortably, no acute distress. HEENT?pupil equal round?reactive to light?and accommodation. Neck no JVD. CVS? regular rate rhythm, Respiratorycoarse breath sounds, rhonchi,no respiratory distress Gastrointestinal abdomen soft, nontender, bowel sounds?audible, G-tube in place no redness Extremities no edema/ no redness right lowerextremity, left lower extremity/ trunk: erythema improving,?warm to touch, no?areas of fluctuation, Neuro? speech dysarthric, moving all 4 extremities, atrophy of lower legs and foot deformity ? Objective Data Active Medications Acetaminophen (Acetaminophen 325 Mg Tablet) 650 mg PO Q6H PRN PRN Reason: Pain, Mild (Pain Scale 1-3) Acetaminophen (Acetaminophen Oral Liquid 650 Mg/20.3 Ml Solution) 960 mg G-TUBE BID [facility] Last Admin: 07/02/21 08:11 Dose: 960 mg Documented by: FESTUS Benztropine Mesylate (Benztropine Mesylate 0.5 Mg Tablet) 0.5 mg G-TUBE BID [facility] Last Admin: 07/02/21 08:11 Dose: 0.5 mg Documented by: FESTUS Clonazepam (Clonazepam 0.5 Mg Tablet) 0.5 mg G-TUBE DAILY@1800 [facility] Last Admin: 07/01/21 18:57 Dose: 0.5 mg Documented by: CHANEL Famotidine (Famotidine 20 Mg Tablet) 20 mg G-TUBE DAILY@1800 [facility] Last Admin: 07/01/21 18:56 Dose: 20 mg Documented by: CHANEL Haloperidol (Haloperidol 5 Mg Tablet) 5 mg G-TUBE DAILY@1800 [facility] Last Admin: 07/01/21 18:56 Dose: 5 mg Documented by: CHANEL Heparin Sodium (Porcine) (Heparin Sodium,Porcine 5,000 Unit/Ml Vial) 5,000 unit SUBCUT Q8H [facility] Last Admin: 07/02/21 12:15 Dose: 5,000 unit Documented by: FESTUS Ceftriaxone Sodium 2 gm/ (Sodium Chloride) 50 mls @ 100 mls/hr IV Q24H [facility] Last Infusion: 07/01/21 23:28 Dose: 0 mls/hr Documented by: CHANEL Levothyroxine Sodium (Levothyroxine Sodium 25 Mcg Tablet) 12.5 mcg G-TUBE DAILY@0600 [facility] Last Admin: 07/02/21 05:33 Dose: 12.5 mcg Documented by: DILIA Levothyroxine Sodium (Levothyroxine Sodium 125 Mcg Tablet) 125 mcg G-TUBE DAILY@0600 [facility] Last Admin: 07/02/21 05:32 Dose: 125 mcg Documented by: DILIA Melatonin (Melatonin 3 Mg Tablet) 6 mg G-TUBE DAILY@1800 [facility] Last Admin: 07/01/21 18:57 Dose: 6 mg Documented by: CHANEL Pharmacy Consult (Consult Rx Vancomycin Dosing) 1 each MISCELLANE DAILY PRN PRN Reason: Consult order Pharmacy Consult (Consult Rx Perform Med Rec) 1 each MISCELLANE ONCE PRN PRN Reason: Consult order Pharmacy Consult (Consult Rx Vancomycin Dosing) 1 each MISCELLANE DAILY PRN PRN Reason: Consult order Polyethylene Glycol (Polyethylene Glycol 3350 17 Gm Powd.Pack) 17 gm G-TUBE DAILY@1800 [facility] Last Admin: 07/01/21 18:56 Dose: 17 gm Documented by: CHANEL Quetiapine Fumarate (Quetiapine Fumarate 50 Mg Tablet) 50 mg G-TUBE DAILY [facility] Last Admin: 07/02/21 08:11 Dose: 50 mg Documented by: FESTUS Quetiapine Fumarate (Quetiapine Fumarate 100 Mg Tablet) 100 mg G-TUBE BEDTIME [facility] Last Admin: 07/01/21 22:26 Dose: 100 mg Documented by: CHANEL Senna/Docusate Sodium (Sennosides/Docusate Sodium Tablet) 2 tab PO BID [facility] Last Admin: 07/02/21 08:11 Dose: 2 tab Documented by: FESTUS Sodium Chloride (0.9 % Sodium Chloride Flush 3 Ml Syringe) 3 ml IVFLUSH QSHIFT [facility] Last Admin: 07/02/21 08:10 Dose: 3 ml Documented by: FESTUS Valproic Acid (Valproic Acid (As Sodium Salt) 250 Mg/5 Ml Solution) 500 mg G-TUBE BID [facility] Last Admin: 07/02/21 08:10 Dose: 500 mg Documented by: FESTUS Labs CBC & Chem 7: 06/30/21 06:16 07/01/21 05:50 Labs: Laboratory Results - last 24 hr 07/01/21 20:04 Random Vancomycin 10.7 L Microbiology Microbiology Results: Microbiology 06/29/21 15:56 Blood Culture - Final Blood - Venous Group G streptococcus 06/29/21 16:32 Blood Culture - Preliminary Blood - Venous No growth after 48 hours. Assessment and Plan (1) Severe sepsis: Status: Acute (2) Cellulitis of left lower limb: Status: Acute Plan 60-year-old male with a past history of hypertension, hypothyroidism, dysphagia status post G-tube, COPD, dementia, schizophrenia, osteoarthritis, history of aspiration pneumonia; sent to [facility] with a chief complaint fever/altered mental status/cough from the long term. Severe sepsis due to Cellulitis of Left lower extremity starting from left ankle to hip and extending to left trunk see picture from ED/hpi note. all features of sepsis resolved. no recurrent fevers, WBC normal s/p iv Zosyn and IV vanco x 2 days, antibiotic transition to IV ceftriaxone day1 , 1/2 blood culture positive for group G Streptococcus echo obtained technically extremely limited study due to poor windows endocarditis cannot be ruled out EF 55%, impaired relaxation will repeat blood cultures id recommend 14 days of IV antibiotics History of dysphagia: Status post G-tube, continue G-tube feedings, continue aspiration precaution . History of dementia/schizophrenia: Continue home benztropine, clonazepam, Haldol, Seroquel, and valproic acid. History of COPD:? tachypnea improved, continue DuoNebs p.r.n. chest x-ray showed no infiltrate. History of hypothyroidism:? Continue levothyroxine home dose. DVT prophylaxis:? Subcu heparin Code status: Full code patient will need continued inpatient stay due to severe sepsis related to entire left lower extremity cellulitis and extending to left trunk requiring IV antibiotics / bacteremia need repeat blood cultures and picc line Quality Stroke Does the patient have a stroke diagnosis?: No VTE Prior VTE?: No VTE Risk Level:: Medical - moderate - high VTE Device Contraindication: Treatment Not Indicated VTE Drug Contraindication: N/A - Med Ordered
[2021-07-02 15:39] VITALS: BP 123/75; PULSE 100; RESP 18; TEMP 36.7; O2SAT 94
[2021-07-02] MEDS: polyethylene glycoL 3350 17 GM POWD.PACK G-TUBE (17:50)
[2021-07-02] MEDS: clonazePAM 0.5 MG TABLET G-TUBE (17:50)
[2021-07-02] MEDS: HaloperidoL 5 MG TABLET G-TUBE (17:50)
[2021-07-02] MEDS: Famotidine 20 MG TABLET G-TUBE (17:50)
[2021-07-02] MEDS: Melatonin 3 MG TABLET 6 MG G-TUBE (17:50)
[2021-07-02 19:30] LABS: Creatinine Clr Calc Pharmacy 114.9; Estimated Glomerular Filt Rate > 60
[2021-07-02 19:38] LABS: Vancomycin Trough 3.8 mcg/mL (10.0-20.0)
[2021-07-02] MEDS: QUEtiapine Fumarate 100 MG TABLET G-TUBE (21:08)
[2021-07-02] MEDS: cefTRIAXone sodium 2 GM in 0.9 % Sodium Chloride 50 ML IV (21:10)
[2021-07-02 23:19] VITALS: BP 100/59; PULSE 96; RESP 18; TEMP 36.6; O2SAT 92
[2021-07-03] MEDS: 0.9 % Sodium Chloride Flush 3 ML SYRINGE IVFLUSH ×4 (01:02→21:41)
[2021-07-03] MEDS: Heparin Sodium,Porcine 5,000 UNIT/ML VIAL 5000 UNIT SUBCUT ×3 (03:43→19:08)
[2021-07-03] MEDS: Levothyroxine Sodium 25 MCG TABLET 12.5 MCG G-TUBE (05:26)
[2021-07-03] MEDS: Levothyroxine Sodium 125 MCG TABLET G-TUBE (05:27)
[2021-07-03 07:54] VITALS: BP 131/65; PULSE 97; RESP 19; TEMP 36.6; O2SAT 94
[2021-07-03] MEDS: Acetaminophen Oral Liquid 650 MG/20.3 ML SOLUTION 960 MG G-TUBE ×2 (07:57→21:39)
[2021-07-03] MEDS: QUEtiapine Fumarate 50 MG TABLET G-TUBE (07:59)
[2021-07-03] MEDS: Benztropine Mesylate 0.5 MG TABLET G-TUBE ×2 (07:59→21:40)
--- NOTE | 2021-07-03 10:34 | HO.PM.IMPN ---
Subjective Subjective Date of Service: 07/03/21 Interval History: resting comfortably, no events overnight, tolerating G-tube, no overnight fevers, chills. Review of Systems Review of Systems: Yes Unobtainable due to mental status Physical Exam Vital Signs: Vital Signs: Last Vital Signs Temp 97.9 F 07/03/21 07:54 Pulse 97 07/03/21 07:54 Resp 19 07/03/21 07:54 BP 131/65 07/03/21 07:54 Pulse Ox 94 07/03/21 07:54 BMI result Body Mass Index 27.6 Const: Other: General? Resting comfortably, no acute distress. HEENT?pupil equal round?reactive to light?and accommodation. Neck no JVD. CVS? regular rate rhythm, Respiratorycoarse breath sounds, rhonchi,no respiratory distress Gastrointestinal abdomen soft, nontender, bowel sounds?audible, G-tube in place no redness Extremities no edema/ no redness right lower extremity, left lower extremity/ trunk: erythema improving,?warm to touch, no?areas of fluctuation, Neuro? speech dysarthric, moving all 4 extremities, atrophy of lower legs and foot deformity ? Objective Data Active Medications Acetaminophen (Acetaminophen 325 Mg Tablet) 650 mg PO Q6H PRN PRN Reason: Pain, Mild (Pain Scale 1-3) Acetaminophen (Acetaminophen Oral Liquid 650 Mg/20.3 Ml Solution) 960 mg G-TUBE BID [facility] Last Admin: 07/03/21 07:57 Dose: 960 mg Documented by: AMENA Benztropine Mesylate (Benztropine Mesylate 0.5 Mg Tablet) 0.5 mg G-TUBE BID [facility] Last Admin: 07/03/21 07:59 Dose: 0.5 mg Documented by: AMENA Clonazepam (Clonazepam 0.5 Mg Tablet) 0.5 mg G-TUBE DAILY@1800 [facility] Last Admin: 07/02/21 17:50 Dose: 0.5 mg Documented by: FESTUS Famotidine (Famotidine 20 Mg Tablet) 20 mg G-TUBE DAILY@1800 [facility] Last Admin: 07/02/21 17:50 Dose: 20 mg Documented by: FESTUS Haloperidol (Haloperidol 5 Mg Tablet) 5 mg G-TUBE DAILY@1800 [facility] Last Admin: 07/02/21 17:50 Dose: 5 mg Documented by: FESTUS Heparin Sodium (Porcine) (Heparin Sodium,Porcine 5,000 Unit/Ml Vial) 5,000 unit SUBCUT Q8H [facility] Last Admin: 07/03/21 03:43 Dose: 5,000 unit Documented by: BONIFACIO Ceftriaxone Sodium 2 gm/ (Sodium Chloride) 50 mls @ 100 mls/hr IV Q24H [facility] Last Infusion: 07/02/21 23:15 Dose: 100 mls/hr Documented by: BONIFACIO Levothyroxine Sodium (Levothyroxine Sodium 25 Mcg Tablet) 12.5 mcg G-TUBE DAILY@0600 [facility] Last Admin: 07/03/21 05:26 Dose: 12.5 mcg Documented by: BONIFACIO Levothyroxine Sodium (Levothyroxine Sodium 125 Mcg Tablet) 125 mcg G-TUBE DAILY@0600 [facility] Last Admin: 07/03/21 05:27 Dose: 125 mcg Documented by: BONIFACIO Melatonin (Melatonin 3 Mg Tablet) 6 mg G-TUBE DAILY@1800 [facility] Last Admin: 07/02/21 17:50 Dose: 6 mg Documented by: FESTUS Pharmacy Consult (Consult Rx Vancomycin Dosing) 1 each MISCELLANE DAILY PRN PRN Reason: Consult order Pharmacy Consult (Consult Rx Perform Med Rec) 1 each MISCELLANE ONCE PRN PRN Reason: Consult order Pharmacy Consult (Consult Rx Vancomycin Dosing) 1 each MISCELLANE DAILY PRN PRN Reason: Consult order Polyethylene Glycol (Polyethylene Glycol 3350 17 Gm Powd.Pack) 17 gm G-TUBE DAILY@1800 [facility] Last Admin: 07/02/21 17:50 Dose: 17 gm Documented by: FESTUS Quetiapine Fumarate (Quetiapine Fumarate 50 Mg Tablet) 50 mg G-TUBE DAILY [facility] Last Admin: 07/03/21 07:59 Dose: 50 mg Documented by: AMENA Quetiapine Fumarate (Quetiapine Fumarate 100 Mg Tablet) 100 mg G-TUBE BEDTIME [facility] Last Admin: 07/02/21 21:08 Dose: 100 mg Documented by: BONIFACIO Senna/Docusate Sodium (Sennosides/Docusate Sodium Tablet) 2 tab PO BID [facility] Last Admin: 07/03/21 08:01 Dose: Not Given Documented by: AMENA Non-Admin Reason: See Note Sodium Chloride (0.9 % Sodium Chloride Flush 3 Ml Syringe) 3 ml IVFLUSH QSHIFT [facility] Last Admin: 07/03/21 07:57 Dose: 3 ml Documented by: AMENA Valproic Acid (Valproic Acid (As Sodium Salt) 250 Mg/5 Ml Solution) 500 mg G-TUBE BID [facility] Last Admin: 07/03/21 07:59 Dose: 500 mg Documented by: AMENA Labs CBC & Chem 7: 06/30/21 06:16 07/02/21 19:05 Labs: Laboratory Results - last 24 hr 07/02/21 07/02/21 19:05 19:05 Estim Creat Clear Calc 114.9 Estimated GFR > 60 Vancomycin Trough 3.8 L Microbiology Microbiology Results: Microbiology 06/29/21 15:56 Blood Culture - Final Blood - Venous Group G streptococcus Assessment and Plan (1) Severe sepsis: Status: Acute (2) Cellulitis of left lower limb: Status: Acute Plan 60-year-old male with a past history of hypertension, hypothyroidism, dysphagia status post G-tube, COPD, dementia, schizophrenia, osteoarthritis, history of aspiration pneumonia; sent to [facility] with a chief complaint fever/altered mental status/[facility]ough [facility]. Severe sepsis due to Cellulitis of Left lower extremity starting from left ankle to hip and extending to left trunk see picture from ED/hpi note. all features of sepsis resolved. no recurrent fevers, WBC normal s/p iv Zosyn and IV vanco x 2 days, antibiotic transition to IV ceftriaxone day 2 , 1/2 blood culture positive for group G Streptococcus echo obtained technically extremely limited study due to poor windows endocarditis cannot be ruled out EF 55%, impaired relaxation repeat blood cultures Pending, id recommend 14 days of IV antibiotics. History of dysphagia: Status post G-tube, continue G-tube feedings, continue aspiration precaution . History of dementia/schizophrenia: Continue home benztropine, clonazepam, Haldol, Seroquel, and valproic acid. History of COPD:? tachypnea improved, continue DuoNebs p.r.n. chest x-ray showed no infiltrate. History of hypothyroidism:? Continue levothyroxine home dose. DVT prophylaxis:? Subcu heparin Code status: Full code patient will need continued inpatient stay due to severe sepsis related to entire left lower extremity cellulitis and extending to left trunk requiring IV antibiotics / bacteremia need repeat blood cultures and picc line Quality Stroke Does the patient have a stroke diagnosis?: No VTE Prior VTE?: No VTE Risk Level:: Medical - moderate - high VTE Device Contraindication: Treatment Not Indicated VTE Drug Contraindication: N/A - Med Ordered
--- NOTE | 2021-07-03 15:07 | MHC.CM.PN ---
nurse case management electronic medical record reviewed, along with case discusedon multiple disciplianry rounds. per documentation patient came from [facility]. 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 clinical updates sent to [facility] to review called to fidel carey [phone] she is off until next wednesday , t/c to covering [facility] [phone] , informed her of the plan for discharge 1-2 days and on iv abx , she will forwarded this to [facility] and we will touch base againg tomorrow. discharge plan return back to [facility] for iv abx via midline vs pic line will need action linda has gt tube notify guardian [phone] with finalized plan overnight caregiver to continue to follow
[2021-07-03 15:33] VITALS: BP 104/59; PULSE 86; RESP 18; TEMP 36.2; O2SAT 92
[2021-07-03] MEDS: Melatonin 3 MG TABLET 6 MG G-TUBE (18:21)
[2021-07-03] MEDS: clonazePAM 0.5 MG TABLET G-TUBE (18:21)
[2021-07-03] MEDS: HaloperidoL 5 MG TABLET G-TUBE (18:21)
[2021-07-03] MEDS: Famotidine 20 MG TABLET G-TUBE (18:21)
[2021-07-03] MEDS: cefTRIAXone sodium 2 GM in 0.9 % Sodium Chloride 50 ML IV (21:37)
[2021-07-03] MEDS: Sennosides/Docusate Sodium TABLET 2 TAB PO (21:40)
[2021-07-03] MEDS: QUEtiapine Fumarate 100 MG TABLET G-TUBE (21:40)
[2021-07-03 23:44] VITALS: BP 106/59; PULSE 94; RESP 18; TEMP 37.4; O2SAT 92
[2021-07-04] MEDS: Heparin Sodium,Porcine 5,000 UNIT/ML VIAL 5000 UNIT SUBCUT ×2 (03:09→09:36)
[2021-07-04] MEDS: Levothyroxine Sodium 25 MCG TABLET 12.5 MCG G-TUBE (05:53)
[2021-07-04] MEDS: Levothyroxine Sodium 125 MCG TABLET G-TUBE (05:53)
[2021-07-04 07:46] VITALS: BP 113/63; PULSE 94; RESP 18; TEMP 36.5; O2SAT 95
[2021-07-04] MEDS: 0.9 % Sodium Chloride Flush 3 ML SYRINGE IVFLUSH (09:35)
[2021-07-04] MEDS: Acetaminophen Oral Liquid 650 MG/20.3 ML SOLUTION 960 MG G-TUBE (09:35)
[2021-07-04] MEDS: QUEtiapine Fumarate 50 MG TABLET G-TUBE (09:36)
[2021-07-04] MEDS: Benztropine Mesylate 0.5 MG TABLET G-TUBE (09:36)
[2021-07-04] MEDS: Sennosides/Docusate Sodium TABLET 2 TAB PO (09:36)
--- NOTE | 2021-07-04 11:23 | MHC.CLN ---
F/U TOLERATING CURRENT TUBE FEEDING AND FLUSH. RECOMMEND CONTINUE CURRENT ORDER. OSMOLITE 1.5 AT MAX GOAL RATE 65 ML/HR WITH 30 ML PROSOURCE Q DAY WITH 240 ML FREE WATER FLUSHES Q 4 HRS TO PROVIDE 2340 KCALS (25KCALS/KG), 112.7 G PROTEIN (1.2G/KG), 2629 ML TOTAL WATER FROM FORMULA AND FLUSHES (28ML/KG) MONITOR TOLERANCE, RESIDUALS, AND LYTES.
--- NOTE | 2021-07-04 12:35 | HO.MIDLINE ---
PICC Line Insertion Midline insertion Diagnosis: [left lower limb cellulitis] Indication: [S272] Pertinent Labs: reviewed Technique: Using sterile technique including cap and mask, sterile gown, glove and drape, the [right] arm was prepped and draped in the usual sterile fashion of full barrier technique with CHG. Using ultrasound guidance, [right basilic] vein access was obtained in a single attempt by this RN. A single lumen, non-PASV, (20G x 10 cm) MIDLINEwas postitioned The procedure was performed in [S272]. Ultrasound was used to document vein patency and for needle entry. Vascular Electronic Equipment Set Up Operator has released the line for use and it is currently dressed with a StatLock, Tegaderm, and CHG disc. Verification has been performed for blood return and line patency. Arm Circumference: [33 cm] Equipment: [[employer] software POWERGLIDE PRO MIDLINE] Catheter Type: SINGLE LUMEN, NON=PASV, 20G x 10 cm) Lot #: [id number]
--- NOTE | 2021-07-04 12:57 | P.DS_ITS ---
DS: Providers Provider Date of Service: 07/04/21 Date of admission: 06/29/21 19:15 Primary care physician: Vandana De León MD Consults: 06/29/21 19:13 Consult to Infectious Diseases Routine Consulting Provider: Vicenta Valdivia Reason for consultation: cellulitis 06/30/21 03:48 Consult to Infectious Diseases Routine Consulting Provider: Vicenta Valdivia Reason for consultation: cellulitis; bacteremia DS: Diagnosis Discharge Diagnosis (1) Severe sepsis: Status: Acute (2) Cellulitis of left lower limb: Status: Acute DS: Summary Hospital Course Hospital Course: Chief Complaint: fever 60-year-old male with a past history of hypertension, hypothyroidism, dysphagia status post G-tube, COPD, dementia, schizophrenia, osteoarthritis, history of aspiration pneumonia; presented to the hospital today with a chief complaint fever/altered mental status/cough from the care home. Most of the history obtained from the records and staff Reportedly patient was noted to have of nurse of breath and cough; denies any sputum production.? Also had fevers; on labs noted to have leukocytosis; subsequently sent to the hospital for further evaluation. Patient is currently alert and awake. Denies any pain Review of all other systems is limited. ER course: Per ER team patient on presentation noted to have mild leukocytosis, mildly tachypneic, tachycardic, also noted to have lactic acidosis; concern for sepsis; chest x-ray showed no acute findings; urinalysis showed microscopic hematuria; On examination left lower extremity the noted to have erythema concerning for cellulitis, likely source of infection; patient was given Zosyn.? Patient also received normal saline at 30 cc/kg; blood pressure stable.? Admitted for further management. hospital course 60-year-old male with a past history of hypertension, hypothyroidism, dysphagia status post G-tube, COPD, dementia, schizophrenia, osteoarthritis, history of aspiration pneumonia;? sent to [facility] with a chief complaint fever/altered mental status/cough from the care home. ?Severe sepsis due to Cellulitis of Left lower extremity patient had extensive left leg cellulitis extending from ankle to hip and extending to left trunk , initially treated with IV vancomycin and Zosyn, all features of sepsis resolved,had no recurrent fevers, WBC normal,? 1/2 blood culture positive for group G Streptococcus, antibiotic transition to IV ceftriaxone, repeat blood cultures are negative, A single lumen, non-PASV, (20G x 10 cm) MIDLINE placed continue IV ceftriaxone end date July 14, echo obtained to rule out vegetation but technically extremely limited study due to poor windows endocarditis cannot be ruled out EF 55%, impaired relaxation, since patient remained hemodynamically stable he is being discharged back to nursing facility. ? History of dysphagia:continue G-tube feedings As before History of dementia/schizophrenia: Continue home benztropine, clonazepam, Haldol, Seroquel,? and valproic acid. History of COPD:? tachypnea improved, continue DuoNebs p.r.n. chest x-ray showed no infiltrate. History of hypothyroidism:? Continue levothyroxine? Time Spent with Patient Time attestation: Total time spent providing and/or coordinating discharge services: Discharge coordination time: Greater than 30 minutes Quality: Safe Use of Opioids Does Pt have an Active Cancer Diagnosis on the Problem List?: No Quality: Stroke Does the patient have a stroke diagnosis?: No Physical Exam Vital Signs: Vital Signs: Last Vital Signs Temp 97.7 F 07/04/21 07:46 Pulse 94 07/04/21 07:46 Resp 18 07/04/21 07:46 BP 113/63 07/04/21 07:46 Pulse Ox 95 07/04/21 07:46 BMI result Body Mass Index 27.6 Const: Other: General? Resting comfortably, no acute distress. HEENT?pupil equal round?reactive to light?and accommodation. Neck no JVD. CVS? regular rate rhythm, Respiratory coarse breath sounds,,no respiratory distress Gastrointestinal abdomen soft, nontender, bowel sounds?audible, G-tube in place no redness Extremities no edema/ no redness right lower extremity, left lower extremity/ trunk: significant improvement in erythema, no?areas of fluctuation, Neuro? speech dysarthric, moving all 4 extremities, atrophy of lower legs and foot deformity ? DS: Data Data Completed and Pending Labs on day of discharge: Preliminary micro results at discharge 07/02/21 15:16 Blood Culture - Preliminary Blood - Venous No growth after 24 hours. 07/02/21 15:16 Blood Culture - Preliminary Blood - Venous No growth after 24 hours. 06/29/21 16:32 Blood Culture - Preliminary Blood - Venous No growth after 48 hours. Discharge Plan Discharge Patient Disposition: Xfer SNF Discharge Diagnosis: severe sepsis due to cellulitis group G Streptococcus bacteremia dysphagia Referrals: Vandana De León MD [Primary Care Provider] - 1 Week Discharge Medications: New ceftriaxone 2 gram recon soln 2 g IV Q24H Qty: 10 0RF Continued quetiapine 25 mg Tablet 50 mg feeding tube DAILY@0600 0RF benztropine 0.5 mg Tablet 0.5 mg feeding tube BID 0RF Rx Instructions: AT 0600 AND 1800 haloperidol 5 mg Tablet 5 mg feeding tube DAILY@1800 0RF acetaminophen 160 mg/5 mL Liquid 960 mg feeding tube BID 0RF Rx Instructions: TAKE A 6 AM AND 6 PM polyethylene glycol 3350 17 gram Powder In Packet 17 g feeding tube DAILY@1800 0RF clonazepam 0.5 mg Tablet 0.5 mg feeding tube DAILY@1800 0RF sennosides-docusate sodium [Senna with Docusate Sodium] 8.6-50 mg Tablet 2 tab-cap PO BID 0RF melatonin 3 mg Tablet 6 mg feeding tube DAILY@1800 0RF quetiapine 100 mg Tablet 100 mg feeding tube BEDTIME 0RF levothyroxine 25 mcg Tablet 12.5 mcg feeding tube DAILY@0600 0RF famotidine 20 mg Tablet 20 mg feeding tube DAILY@1800 0RF valproic acid (as sodium salt) 250 mg/5 mL Solution 500 mg feeding tube BID 0RF levothyroxine 125 mcg Tablet 125 mcg feeding tube DAILY@0600 0RF Rx Instructions: WITH 12.5 MCG TABLET Discharge Orders: Discharge Order (Routine); Ordered 07/04/21 Ordered By: Danika Yuan Diet: advance to usual diet Activity on Discharge: As tolerated Stand Alone Forms: Patient Portal Discharge page Care Plan Goals: for extensive left lower extremity cellulitis use ceftriaxone 2 g daily end date July 14 Health Concerns: G-tube feedings, continue tube feedings Plan of Treatment: follow-up with primary care physician Assessment: PER DISCHARGE SUMMARY
[2021-07-04] MEDS: cefTRIAXone sodium 2 GM in 0.9 % Sodium Chloride 50 ML IV (13:42)
--- NOTE | 2021-07-04 13:59 | MHC.CM.PN ---
nurse case manger note electronic medical record reviewed along with case discussed with hospitlaist , staff nurse and kev parra at [facility] , patient has had his midline cath placed and will recieve a dose of his abx f infusing through new midline at 2pm , requested rapid covid to be done , he will discharge plan retrun back to where he resides at [facility] , spoke with fidel tapia to confirm acceptance and time of transfer and will neew needs for iv abx via midline and abx she has accepted patient back and [facility] the [phone] left detqiled message to [facility] informing him of patients discharge and transport time back to [facility] milacharmaine conrad resides, with ne midline and iv abx also about the updated medicare imm immm will be sent cettified mail to his address action bls transfer
[2021-07-04 14:07] LABS: COVID-19 Test Negative (Negative)
== END 2021-07-04 15:58 | disposition skilled nursing facility (03) | DRG 872 ==
LOC: HO.ED 17:54 → HO.EDOVER 19:19 → HO.S3 06-30 15:18
PROVIDERS: Internal Medicine; Admitting Provider Hospitalist; Emergency Provider Emergency Medicine Emergency Medical Services; PCP Internal Medicine; Visit Provider Hospitalist
DX: A41.9 Sepsis, unspecified organism (principal); L03.116 Cellulitis of left lower limb; E87.2 Acidosis; R65.20 Severe sepsis without septic shock; J44.9 Chronic obstructive pulmonary disease, unspecified; R13.10 Dysphagia, unspecified; R47.1 Dysarthria and anarthria; F03.90 Unspecified dementia, unspecified severity, without behavioral disturbance, psychotic disturbance, mood disturbance, and anxiety; Z93.1 Gastrostomy status; E03.9 Hypothyroidism, unspecified; F20.9 Schizophrenia, unspecified; Z20.822 Contact with and (suspected) exposure to COVID-19; Z79.890 Hormone replacement therapy; Z79.899 Other long term (current) drug therapy
CPT/HCPCS: 0241U; 36410; 36415; 71045; 80048; 80076; 80202; 81001; 82565; 83605; 83690; 83880; 84484; 85007; 85025; 85027; 87040; 87147; 87186; 87205; 87635; 93005; 93306; 96361; 96365; 96366; 96367; 99285; 99291; J0696; J2543; J3370

== ENCOUNTER 2022-07-03 20:24 | Inpatient (IN) | payer OTHER, SELFPAY ==
--- NOTE | ~2022-07-03 | XR_ITS ---
EXAMINATION: XR CHEST CLINICAL INFORMATION: Fever. COMPARISON: Chest radiograph 06/29/2021. TECHNIQUE: Frontal view of the chest was obtained. FINDINGS: Low lung volumes with diffuse bronchovascular crowding and subsegmental atelectasis. No new focal airspace opacity, pleural effusion or pneumothorax. Similar asymmetric elevation of the right hemidiaphragm. Stable appearance of the cardiomediastinal silhouette. No acute osseous abnormalities. XR/XR chest 1V IMPRESSION: Low lung volumes with diffuse bronchovascular crowding and subsegmental atelectasis. No discrete focal consolidation.
--- NOTE | ~2022-07-03 | XR_ITS ---
EXAMINATION: XR CHEST CLINICAL INFORMATION: Triple-lumen catheter COMPARISON: 07/03/2022 TECHNIQUE: Frontal view of the chest was obtained. FINDINGS: Left internal jugular central venous catheter terminates in the SVC. Stable asymmetric elevation of the right hemidiaphragm with accompanying subsegmental atelectasis at the right lung base. Low lung volumes further crowd the bronchovascular markings. No pleural effusion or pneumothorax. Normal heart size and pulmonary vascularity. XR/XR chest 1V IMPRESSION: Left internal jugular central venous catheter terminates in the SVC. No pneumothorax.
[2022-07-03 20:46] VITALS: BP 89/61; BP 92/58; PULSE 114; PULSE 129; RESP 29; TEMP 39.8; O2SAT 92; O2SAT 94; BMI 28.3
--- NOTE | 2022-07-03 20:58 | ED.GENADULT ---
HPI - General Adult General Chief complaint: Fever Stated complaint: RASH OF L TORSO Time Seen by Provider: 07/03/22 20:30 Source: EMS Mode of arrival: EMS Limitations: no limitations History of Present Illness HPI narrative: Patient [facility] The staff noted that the patient had an erythematous rash on the left side of the hip and has been spreading to the upper back. According to the staff, they noticed this rash approximately 5 hours ago. Patient is nonverbal at baseline. Per EMS, patient's rectal temperature at the nursing facility was slightly over 103 F. Related Data Home Medications Medication Instructions Recorded Confirmed acetaminophen 160 mg/5 mL oral 960 mg feeding tube BID 06/29/21 07/03/22 liquid benztropine 0.5 mg tablet 0.5 mg feeding tube BID 06/29/21 07/03/22 clonazepam 0.5 mg tablet 0.5 mg feeding tube DAILY@179906/29/21 07/03/22 famotidine 20 mg tablet 20 mg feeding tube DAILY@179906/29/21 07/03/22 haloperidol 5 mg tablet 5 mg feeding tube DAILY@179906/29/21 07/03/22 levothyroxine 125 mcg tablet 125 mcg feeding tube DAILY@0606/29/21 07/03/22 levothyroxine 25 mcg tablet 12.5 mcg feeding tube DAILY@0606/29/21 07/03/22 melatonin 3 mg tablet 6 mg feeding tube DAILY@1800 06/29/21 07/03/22 polyethylene glycol 3350 17 gram 17 g feeding tube DAILY@179906/29/21 07/03/22 oral powder packet quetiapine 100 mg tablet 100 mg feeding tube BEDTIME 06/29/21 07/03/22 valproic acid (as sodium salt) 250 500 mg feeding tube BID 06/29/21 07/03/22 mg/5 mL oral solution ketoconazole 2 % shampoo 1 appl topical MOTH@07/03/22 07/03/22 lactulose 20 gram/30 mL oral 20 g PO TID PRN Constipation 07/03/22 07/03/22 solution quetiapine 50 mg tablet 50 mg feeding tube DAILY 07/03/22 07/03/22 Allergies Allergy/AdvReac Type Severity Reaction Status Date / Time No Known Allergies Allergy Unknown Verified 04/03/21 11:33 [No Known Allergies*] Review of Systems Review of Systems: Yes Unobtainable due to mental condition [facility] Past Medical History Medical History COPD (chronic obstructive pulmonary disease) Dementia Dysphagia Gastrostomy in place Hypertension Hypothyroidism Osteoarthritis Schizophrenia Social History Social History Household Members: Other Housing: Snf Do you presently have visiting nurse or other home services: Yes (SNF) Unable to assess alcohol history related to: Unknown Patient Tobacco Use Status: Tobacco use Unknown Smoked in Last 30 Days: No Use of substances other than those prescribed or required for medical reasons: No Advance Directives: No Advance Directives Information Provided: No service: No Current occupational status: retired Physical Exam ED Vital Signs: Vital Signs - 24 hr 07/03/22 20:46 07/03/22 21:09 07/03/22 21:57 Temperature 103.6 F H 99.7 F Pulse Rate 129 H 80 114 H Respiratory Rate 29 H 24 H 18 Blood Pressure 89/61 L 98/59 L 113/67 Pulse Oximetry 92 91 L 94 Oxygen Delivery Method Room Air Room Air Room Air 07/03/22 22:52 07/03/22 22:59 07/03/22 23:24 Temperature 99.3 F 99.3 F 99.3 F Pulse Rate 113 H 113 H 111 H Respiratory Rate 18 19 18 Blood Pressure 91/57 L 98/57 L 99/62 Pulse Oximetry 92 91 L 92 Oxygen Delivery Method Room Air Room Air Room Air 07/04/22 00:07 07/04/22 00:51 07/04/22 01:21 Temperature 99 F 99.0 F Pulse Rate 107 H 102 H 100 Respiratory Rate 18 17 Blood Pressure 91/58 L 81/50 L 85/60 L Pulse Oximetry 92 94 Oxygen Delivery Method Room Air Room Air 07/04/22 01:23 Temperature Pulse Rate 100 Respiratory Rate 21 H Blood Pressure 85/60 L Pulse Oximetry 95 Oxygen Delivery Method Room Air BMI result Body Mass Index 28.3 Const Other: Appearance: Alert. Nonverbal Eyes: Pupils equal, round and reactive to light. ENT: Pharynx normal. Neck: Normal inspection. Neck supple. No lymph nodes noted. No crepitus CVS: Regular rhythm, tachycardic between 110 and 120, Pulses normal. Normal S1 and S2 Respiratory: No respiratory distress. Actively coughing cough Breath sounds normal. No Wheezing. No rales Abdomen: Soft and nontender. No rigidity. No distention. Skin: Skin very warm to touch, dry, normal skin color, Normal skin turgor. Extremities: No lower extremity edema. No Lacerations. No Rash, bilateral distal lower extremity contractions Neuro: Unable to participate in cranial nerve assessment Psych: calm Course Course Course Narrative: -age 57, I was informed by the patient's nurse that the blood pressure is 89/61 twice, patient has a fever of 103.6. -patient's source of infection is likely cellulitis in the left hip. One year ago patient had the same condition. -sepsis suspect that this time, 20:57. Patient has been started on IV fluids 3 L and Zosyn and vancomycin. -all of the labs are pending Medications Administered Generic Name Dose Route Start Last Admin Trade Name Freq PRN Reason Stop Dose Admin Norepinephrine Bitartrate 8 mg in 250 mls @ 0 mls/hr 07/04/22 01:15 07/04/22 01:21 Levophed IV 0.05 mcg/kg/min .Q0M DARYN 8.41 mls/hr Administration Protocol Per Protocol Discontinued Medications Generic Name Dose Route Start Last Admin Trade Name Freq PRN Reason Stop Dose Admin Acetaminophen 650 mg 07/03/22 21:34 07/03/22 21:36 Acetaminophen Supp 650 Mg Supp.Rect [place] 07/03/22 21:35 650 mg ONCE ONE Administration Sodium Chloride 3,000 mls @ 999 mls/hr 07/03/22 20:38 07/03/22 22:56 Ns IVCONT 07/03/22 23:38 Infused .Q3H1M ONE Infusion Piperacillin Sod/Tazobactam 50 mls @ 100 mls/hr 07/03/22 20:38 07/03/22 21:35 Sod 3.375 gm/ Sodium Chloride IV 07/03/22 21:07 Infused ONCE ONE Infusion Vancomycin HCl 2,000 mg in 520 mls @ 260 mls/hr 07/03/22 20:38 07/03/22 23:44 Vancomycin/Ns IV 07/03/22 22:37 Infused ONCE ONE Infusion Sodium Chloride 1,000 mls @ 999 mls/hr 07/03/22 23:11 07/04/22 00:46 Ns IVCONT 07/04/22 00:11 Infused .Q1H1M ONE Infusion Lorazepam 2 mg 07/04/22 02:11 07/04/22 02:15 Lorazepam 2 Mg/Ml Vial IVPUSH 07/04/22 02:12 2 mg ONCE ONE Administration Medical Decision Making Medical Decision Making [facility] Narrative: -white blood cell count is 18.9, lactic acid 1.9. -after starting IV fluids, blood pressure improved to 98/59 -Chest x-ray interpreted by me: Chronic elevation of hemidiaphragm on the right -patient received 3 L of normal saline, initially, patient's blood pressure was soft, in the low to mid 90s. Shortly after IV fluid infusions., patient's blood pressure dropped to the 80s. Patient was given 1 more L of normal saline. However, patient's blood pressure was still in the 80s. Patient was started on Levophed. -central line was inserted by nurse practitioner Mckenna Cuellar -I discussed the patient with Dr. Weinstein, patient being admitted Differential Diagnosis Differential Diagnoses: The differential diagnosis associated with the presentation includes (Sepsis, cellulitis, COPD exacerbation, UTI) Admission/Observation Consideration of admission/observation: Escalation of care including admission/observation considered Consult Healthcare Provider Management of the patient was discussed with: Junk Dealer Lab Data [facility] Lab Attestation statement: I reviewed the patient's lab results. 07/03/22 20:54 07/03/22 20:54 Labs: Lab Results 07/03/22 07/03/22 07/03/22 Range/Units 20:54 20:54 20:54 WBC 18.8 H (4.8-10.8) X10*3/uL RBC 4.70 (4.60-5.80) X10*6/uL Hgb 14.9 (14.0-18.0) g/dl Hct 43.8 (42.0-52.0) % MCV 93.2 (80.0-98.0) fL MCH 31.7 (27.0-33.0) pg MCHC 34.0 (31.0-36.0) g/dl RDW 13.4 (11.0-16.0) % Plt Count 158 L D (160-400) X10*3/uL MPV 12.3 (9.4-12.4) fL Immature Gran % (Auto) 0.8 H (0.0-0.4) % Neut % (Auto) 89.1 H (45-73) % Lymph % (Auto) 6.4 L (20-40) % [place] % (Auto) 2.9 (2-11) % Eos % (Auto) 0.6 (0-4) % Baso % (Auto) 0.2 (0-2) % Lymph # (Auto) 1.2 (1.2-4.9) X10*3/uL [place] # (Auto) 0.5 (0.1-1.2) X10*3/uL Eos # (Auto) 0.1 (0.0-0.4) X10*3/uL Baso # (Auto) 0.0 (0.0-0.2) X10*3/uL Abs Immat Gran (auto) 0.15 H (0.00-0.03) X10*3/uL Absolute Neuts (auto) 16.8 H (2.0-8.3) x10*3/uL Absolute Nucleated RBC 0.000 (0.0-0.012) X10*3/uL Nucleated RBC % (auto) 0.0 (0.0-0.2) /100WBC PT 13.6 H (10.0-13.1) SEC INR 1.2 H (0.9-1.1) Sodium 136 (135-145) mmol/L Potassium 4.0 (3.3-5.1) mmol/L Chloride 106 (96-108) mmol/L Carbon Dioxide 22 (22-29) mmol/L Anion Gap 12 (12-20) BUN 16 (9-16) mg/dL Creatinine 0.89 (0.5-1.4) mg/dL Estim Creat Clear Calc 98.2 Estimated GFR > 60 Random Glucose 83 (60-115) mg/dL Lactic Acid (0.5-2.0) mmol/L Calcium 8.5 (8.4-10.2) mg/dL Magnesium 1.7 (1.6-2.6) mg/dL Total Bilirubin 0.5 (0.0-1.0) mg/dL Direct Bilirubin < 0.2 (0.0-0.5) mg/dL AST 25 (5-37) U/L ALT 11 (0-40) U/L Alkaline Phosphatase 106 (39-117) U/L Troponin I High Sens (<3.5-35.0) ng/L Total Protein 7.1 (6.5-8.0) g/dL Albumin 3.1 L (3.5-5.0) g/dL Lipase 13 (8-78) U/L TSH 0.89 (0.32-4.0) uIU/mL Urine Color Urine Appearance Urine pH (5.0-9.0) Ur Specific [place] (1.005-1.025) Urine Protein (Neg-Trace) mg/dL Urine Glucose (UA) (Negative) mg/dL Urine Ketones (Negative) mg/dL Urine Blood (Negative) Urine Nitrite (Negative) Ur Leukocyte Esterase (Negative) Urine RBC (0-2) /HPF Urine WBC (0-5) /HPF Ur Squamous Epith Cells (0-2) /HPF Urine Bacteria (None Seen) Hyaline Casts (0-2) /LPF COVID-19 (YUKO) (Negative) COVID-19 Clin Com 07/03/22 07/03/22 07/03/22 Range/Units 20:54 20:54 20:54 WBC (4.8-10.8) X10*3/uL RBC (4.60-5.80) X10*6/uL Hgb (14.0-18.0) g/dl Hct (42.0-52.0) % MCV (80.0-98.0) fL MCH (27.0-33.0) pg MCHC (31.0-36.0) g/dl RDW (11.0-16.0) % Plt Count (160-400) X10*3/uL MPV (9.4-12.4) fL Immature Gran % (Auto) (0.0-0.4) % Neut % (Auto) (45-73) % Lymph % (Auto) (20-40) % [place] % (Auto) (2-11) % Eos % (Auto) (0-4) % Baso % (Auto) (0-2) % Lymph # (Auto) (1.2-4.9) X10*3/uL [place] # (Auto) (0.1-1.2) X10*3/uL Eos # (Auto) (0.0-0.4) X10*3/uL Baso # (Auto) (0.0-0.2) X10*3/uL Abs Immat Gran (auto) (0.00-0.03) X10*3/uL Absolute Neuts (auto) (2.0-8.3) x10*3/uL Absolute Nucleated RBC (0.0-0.012) X10*3/uL Nucleated RBC % (auto) (0.0-0.2) /100WBC PT (10.0-13.1) SEC INR (0.9-1.1) Sodium (135-145) mmol/L Potassium (3.3-5.1) mmol/L Chloride (96-108) mmol/L Carbon Dioxide (22-29) mmol/L Anion Gap (12-20) BUN (9-16) mg/dL Creatinine (0.5-1.4) mg/dL Estim Creat Clear Calc Estimated GFR Random Glucose (60-115) mg/dL Lactic Acid 1.9 (0.5-2.0) mmol/L Calcium (8.4-10.2) mg/dL Magnesium (1.6-2.6) mg/dL Total Bilirubin (0.0-1.0) mg/dL Direct Bilirubin (0.0-0.5) mg/dL AST (5-37) U/L ALT (0-40) U/L Alkaline Phosphatase (39-117) U/L Troponin I High Sens 18.8 (<3.5-35.0) ng/L Total Protein (6.5-8.0) g/dL Albumin (3.5-5.0) g/dL Lipase (8-78) U/L TSH (0.32-4.0) uIU/mL Urine Color Urine Appearance Urine pH (5.0-9.0) Ur Specific [place] (1.005-1.025) Urine Protein (Neg-Trace) mg/dL Urine Glucose (UA) (Negative) mg/dL Urine Ketones (Negative) mg/dL Urine Blood (Negative) Urine Nitrite (Negative) Ur Leukocyte Esterase (Negative) Urine RBC (0-2) /HPF Urine WBC (0-5) /HPF Ur Squamous Epith Cells (0-2) /HPF Urine Bacteria (None Seen) Hyaline Casts (0-2) /LPF COVID-19 (YUKO) Negative (Negative) COVID-19 Clin Com See Note 07/03/22 Range/Units 22:03 WBC (4.8-10.8) X10*3/uL RBC (4.60-5.80) X10*6/uL Hgb (14.0-18.0) g/dl Hct (42.0-52.0) % MCV (80.0-98.0) fL MCH (27.0-33.0) pg MCHC (31.0-36.0) g/dl RDW (11.0-16.0) % Plt Count (160-400) X10*3/uL MPV (9.4-12.4) fL Immature Gran % (Auto) (0.0-0.4) % Neut % (Auto) (45-73) % Lymph % (Auto) (20-40) % [place] % (Auto) (2-11) % Eos % (Auto) (0-4) % Baso % (Auto) (0-2) % Lymph # (Auto) (1.2-4.9) X10*3/uL [place] # (Auto) (0.1-1.2) X10*3/uL Eos # (Auto) (0.0-0.4) X10*3/uL Baso # (Auto) (0.0-0.2) X10*3/uL Abs Immat Gran (auto) (0.00-0.03) X10*3/uL Absolute Neuts (auto) (2.0-8.3) x10*3/uL Absolute Nucleated RBC (0.0-0.012) X10*3/uL Nucleated RBC % (auto) (0.0-0.2) /100WBC PT (10.0-13.1) SEC INR (0.9-1.1) Sodium (135-145) mmol/L Potassium (3.3-5.1) mmol/L Chloride (96-108) mmol/L Carbon Dioxide (22-29) mmol/L Anion Gap (12-20) BUN (9-16) mg/dL Creatinine (0.5-1.4) mg/dL Estim Creat Clear Calc Estimated GFR Random Glucose (60-115) mg/dL Lactic Acid (0.5-2.0) mmol/L Calcium (8.4-10.2) mg/dL Magnesium (1.6-2.6) mg/dL Total Bilirubin (0.0-1.0) mg/dL Direct Bilirubin (0.0-0.5) mg/dL AST (5-37) U/L ALT (0-40) U/L Alkaline Phosphatase (39-117) U/L Troponin I High Sens (<3.5-35.0) ng/L Total Protein (6.5-8.0) g/dL Albumin (3.5-5.0) g/dL Lipase (8-78) U/L TSH (0.32-4.0) uIU/mL Urine Color Yellow Urine Appearance Clear Urine pH 7.5 (5.0-9.0) Ur Specific [place] 1.015 (1.005-1.025) Urine Protein Negative (Neg-Trace) mg/dL Urine Glucose (UA) Negative (Negative) mg/dL Urine Ketones Trace (Negative) mg/dL Urine Blood Negative (Negative) Urine Nitrite Negative (Negative) Ur Leukocyte Esterase Trace H (Negative) Urine RBC 0-2 (0-2) /HPF Urine WBC 0-5 (0-5) /HPF Ur Squamous Epith Cells 0-2 (0-2) /HPF Urine Bacteria None Seen (None Seen) Hyaline Casts 0-2 (0-2) /LPF COVID-19 ([facility]KO) (Negative) COVID-19 Clin Com Independent Interpretation I performed an independent interpretation of an: EKG Interpretation: FINDINGS: Low lung volumes with diffuse bronchovascular crowding and subsegmental atelectasis. No new focal airspace opacity, pleural effusion or pneumothorax. Similar asymmetric elevation of the right hemidiaphragm. Stable appearance of the cardiomediastinal silhouette. No acute osseous abnormalities. XR/XR chest 1V IMPRESSION: Low lung volumes with diffuse bronchovascular crowding and subsegmental atelectasis. No discrete focal consolidation. Critical Care Time Critical Care Time Critical Care Time: Yes Total Critical Care Time: 120 Attestation: I have personally provided critical care time. Time includes review of lab data, radiology results, discussion with consultants, and monitoring for potential decompensation. Intervention performed as documented. Discharge Plan Discharge Clinical Impression: Cellulitis, Sepsis associated hypotension Patient Disposition: Admitted As Inpatient
--- NOTE | 2022-07-03 21:00 | PC.NURSE ---
late entry-bilateral IV placed in L and R arms. labwork obtained. dr pandey at bedside during ems handoff. aware of low bp and map. sepsis alert called @ 2053.
[2022-07-03] MEDS: Piperacillin Sodium/Tazobactam 3.375 GM in 0.9 % Sodium Chloride 50 ML IV (21:01)
[2022-07-03 21:04] LABS: MANUAL DIFF FLAG NO
[2022-07-03] MEDS: 0.9 % Sodium Chloride 3,000 ML 999 ML IVCONT (21:04)
[2022-07-03 21:09] VITALS: BP 98/59; PULSE 80; RESP 24; O2SAT 91
[2022-07-03 21:12] LABS: INTERNATIONAL NORM RATIO 1.2 (0.9-1.1); Prothrombin Time 13.6 SEC (10.0-13.1)
--- NOTE | 2022-07-03 21:14 | ECG_ITS ---
Test Reason : BRADYCARDIA Blood Pressure : / mmHG Vent. Rate : 123 BPM Atrial Rate : 123 BPM P-R Int : 166 ms QRS Dur : 080 ms QT Int : 308 ms P-R-T Axes : 061 -61 -03 degrees QTc Int : 440 ms Sinus tachycardia Low voltage QRS Inferior infarct , age undetermined ST & T wave abnormality, consider anterior ischemia Abnormal ECG When compared with ECG of 29-JUN-2021 17:16, ST now depressed in Inferior leads Nonspecific T wave abnormality now evident in Inferior leads Referred By: María Lerner Electronically Signed By:Jefe Allred
[2022-07-03 21:16] LABS: Lactic Acid 1.9 mmol/L (0.5-2.0)
[2022-07-03 21:17] LABS: COVID-19 Test Negative (Negative); IDNOW Serial# BCCEAD1C
[2022-07-03 21:22] LABS: Basophils Percent Auto 0.2 % (0-2); Eosinophils Absolute Auto 0.1 X10*3/uL (0.0-0.4); Eosinophils Percent Auto 0.6 % (0-4); Hematocrit 43.8 % (42.0-52.0); Hemoglobin 14.9 g/dl (14.0-18.0); Imm Gran Abs Auto 0.15 X10*3/uL (0.00-0.03); Imm Gran Pct Auto 0.8 % (0.0-0.4); Lymphocytes Absolute Auto 1.2 X10*3/uL (1.2-4.9); Lymphocytes Percent Auto 6.4 % (20-40); Mean Corpuscular Hemoglobin 31.7 pg (27.0-33.0); Mean Corpuscular Volume 93.2 fL (80.0-98.0); Mean Platelet Volume 12.3 fL (9.4-12.4); Monocytes Absolute Auto 0.5 X10*3/uL (0.1-1.2); Monocytes Percent Auto 2.9 % (2-11); Neutrophils Absolute Auto 16.8 x10*3/uL (2.0-8.3); Neutrophils Percent Auto 89.1 % (45-73); Platelet Count 158 X10*3/uL (160-400); Red Cell Distribution Width 13.4 % (11.0-16.0); White Blood Count 18.8 X10*3/uL (4.8-10.8)
[2022-07-03 21:23] LABS: Alanine Aminotransferase 11 U/L (0-40); Albumin Level 3.1 g/dL (3.5-5.0); Alkaline Phosphatase 106 U/L (39-117); Anion Gap 12 (12-20); Aspartate Amino Transferase 25 U/L (5-37); Bilirubin Direct < 0.2 mg/dL (0.0-0.5); Bilirubin Total 0.5 mg/dL (0.0-1.0); Blood Urea Nitrogen 16 mg/dL (9-16); Calcium 8.5 mg/dL (8.4-10.2); Carbon Dioxide 22 mmol/L (22-29); Chloride 106 mmol/L (96-108); Creatinine Clr Calc Pharmacy 98.2; Estimated Glomerular Filt Rate > 60; Glucose Random 83 mg/dL (60-115); Lipase 13 U/L (8-78); Magnesium 1.7 mg/dL (1.6-2.6); Sodium 136 mmol/L (135-145); Total Protein 7.1 g/dL (6.5-8.0)
[2022-07-03 21:28] LABS: Troponin-I High Sensitivity 18.8 ng/L (<3.5-35.0)
[2022-07-03] MEDS: Acetaminophen Supp 650 MG SUPP.RECT PR (21:36)
[2022-07-03 21:57] VITALS: BP 113/67; PULSE 114; RESP 18; TEMP 37.6; O2SAT 94
[2022-07-03 22:09] LABS: Appearance Urine Clear; Color Urine Yellow; Glucose Urine UA Negative (Negative); Leukocyte Esterase Urine Trace (Negative); Nitrite Urine Negative (Negative); PH 7.5 (5.0-9.0); Specific Gravity - Urine 1.015 (1.005-1.025); UMIC TRIGGER UACC YES; Urine Blood Negative (Negative); Urine Ketones Trace mg/dL (Negative); Urine Protein Negative (Neg-Trace)
--- NOTE | 2022-07-03 22:11 | PHA.MEDREC ---
Pharmacy Consult ? Medication Reconciliation Pharmacy has completed the medication reconciliation. [facility]
[2022-07-03 22:21] LABS: Bacteria Urine None Seen (None Seen); Hyaline Casts Urine 0-2 /LPF (0-2); RBC Urine 0-2 /HPF (0-2); Squamous Epithelial Cell Urine 0-2 /HPF (0-2); WBC Urine 0-5 /HPF (0-5)
[2022-07-03 22:31] LABS: TSH reflex Free T4 0.89 uIU/mL (0.32-4.0)
[2022-07-03 22:52] VITALS: BP 91/57; PULSE 113; RESP 18; TEMP 37.4; O2SAT 92
[2022-07-03 22:59] VITALS: BP 98/57; PULSE 113; RESP 19; TEMP 37.4; O2SAT 91
[2022-07-03] MEDS: 0.9 % Sodium Chloride 1,000 ML 999 ML IVCONT (23:16)
[2022-07-03 23:24] VITALS: BP 99/62; PULSE 111; RESP 18; TEMP 37.4; O2SAT 92
[2022-07-04] VITALS (39 sets, daily range): BP systolic 81–142; BP diastolic 33–73; PULSE 57–107; RESP 12–26; TEMP 36.7–38.2; O2SAT 92–99; BMI 30.7; BMI 29.2
--- NOTE | 2022-07-04 00:24 | PC.NURSE ---
late entry- pt medicated according to may. dockery catheter placed with temp sensory in place. pt resting on stretcher. IVF completed @ 2255. two BP completed @ 2323. additional fluid ordered by dr pandey. IVF running according to may. pt placed in trendelenberg. per dr pandey repeat ekg obtained
--- NOTE | 2022-07-04 01:00 | PC.NURSE ---
late entry- dr pandey made aware of bp of 81/[address] pandey set up started for central line placement
[2022-07-04] MEDS: Norepinephrine Bitartrate/D5W 8 MG/250 ML PLAST..BAG 8.41 MG IV (01:21)
--- NOTE | 2022-07-04 01:30 | PC.NURSE ---
late entry- levophed gtt started per dr pandey order. per dr dannie aviles to start in peripheral line while placement of central line underway.
--- NOTE | 2022-07-04 02:10 | PC.NURSE ---
late entry- this rn, dr pandey, house carpenter, and joe rn at bed side during placement of central line. pt became anxious with placement of central line. per dr pandey and house carpenter order pt medicated according to may. awaiting xray confirmation of placement of central line
[2022-07-04] MEDS: LORazepam 2 MG/ML VIAL IVPUSH (02:15)
--- NOTE | 2022-07-04 02:17 | PM.CCHP ---
History of Present Illness Date of Service: 07/04/22 Attending physician on admission: Jean Paul Weinstein Chief Complaint: Fever The patient is a 61-year-old male with past medical history of hypertension, hypothyroidism, dysphagia status post G-tube, COPD, schizophrenia? who presented to the emergency department from senior care facility due to? fever. SNF staff reported fever of 103 as well as a new? erythematous rash on the left side of the hip and has been spreading to the upper back in the 5 hours prior to arrival to ED.? ?In ED temperature later to 103.6, 129, special rate 29, blood pressure 89/61 satting 92% on room air.? Laboratory data significant for? WBC 18.8,? platelets 158, albumin 3.1.? UA negative Imaging:? Chest Xray with no acute infection noted?? ED course:? ?Patient received? a total 4 L of normal saline, empiric vancomycin and Zosyn.? ?Patient blood pressure improved this by 4 L [facility] [place] of crystalloids requiring initiation of vasopressors. Review of Systems Review of Systems: Patient cognitively impaired Yes Unobtainable due to mental condition PMFSH Past Medical History Medical History COPD (chronic obstructive pulmonary disease) Dementia Dysphagia Gastrostomy in place Hypertension Hypothyroidism Osteoarthritis Schizophrenia Cognitive capacity: impaired Social History Social History Household Members: Other Housing: Custodial Do you presently have visiting nurse or other home services: Yes (SNF) Unable to assess alcohol history related to: Unknown Patient Tobacco Use Status: Tobacco use Unknown Smoked in Last 30 Days: No Use of substances other than those prescribed or required for medical reasons: No Advance Directives: No Advance Directives Information Provided: No service: No Current occupational status: retired Meds Allergies Allergy/AdvReac Type Severity Reaction Status Date / Time No Known Allergies Allergy Unknown Verified 04/03/21 11:33 [No Known Allergies*] Active Medications: Current Medications Enoxaparin Sodium (Enoxaparin Sodium 40 Mg/0.4 Ml Syringe) 40 mg SUBCUT Q24H DARYN Norepinephrine Bitartrate (Levophed) 8 mg in 250 mls @ 0 mls/hr IV .Q0M DARYN; Protocol Last Admin: 07/04/22 01:21 Dose: 0.05 mcg/kg/min, 8.41 mls/hr Pharmacy Consult (Consult Rx Perform Med Rec) 1 each MISCELLANE ONCE PRN PRN Reason: Consult order Home Medications Medication Instructions Recorded Confirmed Last Taken Type acetaminophen 160 mg/5 mL oral 960 mg feeding tube BID 06/29/21 07/03/22 06/29/21 History liquid benztropine 0.5 mg tablet 0.5 mg feeding tube BID 06/29/21 07/03/22 06/29/21 History clonazepam 0.5 mg tablet 0.5 mg feeding tube DAILY@1800 06/29/21 07/03/22 06/28/21 History famotidine 20 mg tablet 20 mg feeding tube DAILY@1800 06/29/21 07/03/22 06/28/21 History haloperidol 5 mg tablet 5 mg feeding tube DAILY@1800 06/29/21 07/03/22 06/28/21 History levothyroxine 125 mcg tablet 125 mcg feeding tube DAILY@0600 06/29/21 07/03/22 06/29/21 History levothyroxine 25 mcg tablet 12.5 mcg feeding tube DAILY@0600 06/29/21 07/03/22 06/29/21 History melatonin 3 mg tablet 6 mg feeding tube DAILY@1800 06/29/21 07/03/22 06/28/21 History polyethylene glycol 3350 17 gram 17 g feeding tube DAILY@1800 06/29/21 07/03/22 06/28/21 History oral powder packet quetiapine 100 mg tablet 100 mg feeding tube BEDTIME 06/29/21 07/03/22 06/28/21 History valproic acid (as sodium salt) 250 500 mg feeding tube BID 06/29/21 07/03/22 06/29/21 History mg/5 mL oral solution ketoconazole 2 % shampoo 1 appl topical MOTH@09 07/03/22 07/03/22 Unknown History lactulose 20 gram/30 mL oral 20 g PO TID PRN Constipation 07/03/22 07/03/22 Unknown History solution quetiapine 50 mg tablet 50 mg feeding tube DAILY 07/03/22 07/03/22 Unknown History Physical Exam Vital Signs: Vital Signs: Last Vital Signs Temp 98.1 F 07/04/22 02:11 Pulse 93 07/04/22 02:11 Resp 26 H 07/04/22 02:11 BP 99/63 07/04/22 02:11 Pulse Ox 95 07/04/22 02:11 O2 Del Method Room Air 07/04/22 02:11 BMI result Body Mass Index 28.3 ?General:?Patient alert, lethargic ?HEENT:? Head is normocephalic, atraumatic, pupils equal round reactive to light accommodation bilaterally..? Buccal mucosa is dry, Neck is supple ?Cardiac:? Sinus tachycardia, Clear S1-S2, no murmurs rubs or gallops. ?Pulmonary:? Lungs diminished no wheezes, rales or rhonchi. ?Abdomen:? ?GTUBE present Abdomen soft, non-tender, non-distended. Normal bowel sounds. No pulsatile mass. No hepatosplenomegaly. ?Musculoskeletal:? Foot drop on BLE. atrophy of BLE. Moves upper extremities randomly. ?Neurologic:? Patient alert to self only, speech is not clear (chronic). ?Skin: erythematous rash on the left side of the hip and has been spreading to the upper back. Dry skin throughout. Vascular:? 2+ pulses upper and lower extremities distally.? Results Labs 07/03/22 20:54 07/03/22 20:54 Labs: Laboratory Results - last 24 hr 07/03/22 07/03/22 07/03/22 20:54 20:54 20:54 MCV 93.2 MCH 31.7 MCHC 34.0 RDW 13.4 Plt Count 158 L D MPV 12.3 Immature Gran % (Auto) 0.8 H Neut % (Auto) 89.1 H Lymph % (Auto) 6.4 L [place] % (Auto) 2.9 Eos % (Auto) 0.6 Baso % (Auto) 0.2 Lymph # (Auto) 1.2 [place] # (Auto) 0.5 Eos # (Auto) 0.1 Baso # (Auto) 0.0 Abs Immat Gran (auto) 0.15 H Absolute Neuts (auto) 16.8 H Absolute Nucleated RBC 0.000 Nucleated RBC % (auto) 0.0 PT 13.6 H INR 1.2 H Anion Gap 12 Estim Creat Clear Calc 98.2 Estimated GFR > 60 Random Glucose 83 Lactic Acid Calcium 8.5 Magnesium 1.7 Total Bilirubin 0.5 Direct Bilirubin < 0.2 AST 25 ALT 11 Alkaline Phosphatase 106 Troponin I High Sens Total Protein 7.1 Albumin 3.1 L Lipase 13 TSH 0.89 Urine Color Urine Appearance Urine pH Ur Specific [place] Urine Protein Urine Glucose (UA) Urine Ketones Urine Blood Urine Nitrite Ur Leukocyte Esterase Urine RBC Urine WBC Ur Squamous Epith Cells Urine Bacteria Hyaline Casts COVID-19 ([facility]) COVID-19 Clin Com 07/03/22 07/03/22 07/03/22 20:54 20:54 20:54 MCV MCH MCHC RDW Plt Count MPV Immature Gran % (Auto) Neut % (Auto) Lymph % (Auto) [place] % (Auto) Eos % (Auto) Baso % (Auto) Lymph # (Auto) [place] # (Auto) Eos # (Auto) Baso # (Auto) Abs Immat Gran (auto) Absolute Neuts (auto) Absolute Nucleated RBC Nucleated RBC % (auto) PT INR Anion Gap Estim Creat Clear Calc Estimated GFR Random Glucose Lactic Acid 1.9 Calcium Magnesium Total Bilirubin Direct Bilirubin AST ALT Alkaline Phosphatase Troponin I High Sens 18.8 Total Protein Albumin Lipase TSH Urine Color Urine Appearance Urine pH Ur Specific [place] Urine Protein Urine Glucose (UA) Urine Ketones Urine Blood Urine Nitrite Ur Leukocyte Esterase Urine RBC Urine WBC Ur Squamous Epith Cells Urine Bacteria Hyaline Casts COVID-19 ([facility]UKO) Negative COVID-19 Clin Com See Note 07/03/22 22:03 MCV MCH MCHC RDW Plt Count MPV Immature Gran % (Auto) Neut % (Auto) Lymph % (Auto) [place] % (Auto) Eos % (Auto) Baso % (Auto) Lymph # (Auto) [place] # (Auto) Eos # (Auto) Baso # (Auto) Abs Immat Gran (auto) Absolute Neuts (auto) Absolute Nucleated RBC Nucleated RBC % (auto) PT INR Anion Gap Estim Creat Clear Calc Estimated GFR Random Glucose Lactic Acid Calcium Magnesium Total Bilirubin Direct Bilirubin AST ALT Alkaline Phosphatase Troponin I High Sens Total Protein Albumin Lipase TSH Urine Color Yellow Urine Appearance Clear Urine pH 7.5 Ur Specific [place] 1.015 Urine Protein Negative Urine Glucose (UA) Negative Urine Ketones Trace Urine Blood Negative Urine Nitrite Negative Ur Leukocyte Esterase Trace H Urine RBC 0-2 Urine WBC 0-5 Ur Squamous Epith Cells 0-2 Urine Bacteria None Seen Hyaline Casts 0-2 COVID-19 ([facility]UKO) COVID-19 Clin Com Imaging Radiologist's Impressions: Impressions Chest X-Ray 07/03/22 21:19 IMPRESSION: Low lung volumes with diffuse bronchovascular crowding and subsegmental atelectasis. No discrete focal consolidation. Assessment and Plan (1) Severe sepsis: Status: Acute (2) Sepsis associated hypotension: Status: Acute (3) Cellulitis: Status: Acute Plan Neuro:?No acute issues Cardiac:?? Severe Sepsis: patient febrile? to 103, with hypotension requiring pressors.? Patient is not in septic shock, lactic was normal.? Source likely cellulitis.? He received empiric antibiotics in the emergency room.? Will continue with empiric antibiotics.? Wean off pressors as tolerated Pulmonary:?? ?No acute issues Renal:? ?No acute issues ?GI:?? ?No acute issues Endo:?No acute issues? ID:?? ?Severe sepsis related to cellulitis, cultures pending.? Continue vancomycin and Zosyn.? Heme/Onc:? No acute issues. Psych:? No acute issues. Miscellaneous:? No acute issues. Prophylaxis:? Lovenox? Diet:? g tube? Critical care time: 30x minutes of critical care time? CODE: medical stenographer Spent With Patient Time: Total time managing care of this patient today ____ minutes. Critical Care Time Critical Care Time (minutes): 30
--- NOTE | 2022-07-04 03:00 | PC.NURSE ---
rn to rn report given to icu nurse. this rn and candy feeder transported pt to icu room.
--- NOTE | 2022-07-04 03:02 | W.PM.CCHP ---
Procedures Date of Service Date of Service: 07/04/22 Central Line Placement Left IJ: Central Line Comments: Patient requiring emergent central line for vasopressors.? Central line placed left internal jugular triple lumen central venous catheter placed in usual sterile conditions under ultrasound guidance for appropriate vascular access without immediate complications. Central line position verified with Chest XRAY. Consent for Procedure: Emergent-no informed consent obtained Time out performed: Yes Sterile Technique Used: Yes Patient placed on monitor/pulse ox: Yes MD prep: mask, gown and gloves Central line prep: Chlorhexidine scrub Local anesthesia used: lidocaine 1% Ultrasound used for placement: Yes Central line lumen inserted: triple Post procedure: sutured in place, good blood return, all ports aspirated, flushed, capped and sterile dressing applied Post procedure x-ray: tip of catheter in good position and no pneumothorax seen Patient tolerated procedure: well and no complications Complications: none
[2022-07-04] MEDS: Albumin Human 25 % 100 ML IV ×4 (03:18→19:56)
[2022-07-04] MEDS: Enoxaparin Sodium 40 MG/0.4 ML SYRINGE SUBCUT (03:19)
[2022-07-04] MEDS: Piperacillin Sodium/Tazobactam 4.5 GM in 0.9 % Sodium Chloride 100 ML IV ×3 (04:52→21:05)
[2022-07-04 05:31] LABS: VBG Base Excess -1.9 mmol/L; VBG HCO3 22 mmol/L (22-26); VBG pCO2 36 mmHg; VBG pH 7.39 (7.32-7.43); VBG pO2 43 mmHg
[2022-07-04 05:38] LABS: Venous Blood Gas Refer to POC result
[2022-07-04 06:17] LABS: Alanine Aminotransferase 7 U/L (0-40); Albumin Level 2.8 g/dL (3.5-5.0); Alkaline Phosphatase 78 U/L (39-117); Anion Gap 11 (12-20); Aspartate Amino Transferase 17 U/L (5-37); Bilirubin Total 0.7 mg/dL (0.0-1.0); Blood Urea Nitrogen 12 mg/dL (9-16); Calcium 7.5 mg/dL (8.4-10.2); Carbon Dioxide 23 mmol/L (22-29); Chloride 113 mmol/L (96-108); Creatinine Clr Calc Pharmacy 116.3; Estimated Glomerular Filt Rate > 60; Glucose Random 78 mg/dL (60-115); Magnesium 1.7 mg/dL (1.6-2.6); Potassium 3.8 mmol/L (3.3-5.1); Sodium 143 mmol/L (135-145); Total Protein 5.6 g/dL (6.5-8.0)
--- NOTE | 2022-07-04 07:59 | ECG_ITS ---
Test Reason : REPEAT Blood Pressure : / mmHG Vent. Rate : 107 BPM Atrial Rate : 107 BPM P-R Int : 176 ms QRS Dur : 074 ms QT Int : 338 ms P-R-T Axes : 039 040 033 degrees QTc Int : 451 ms Sinus tachycardia Low voltage QRS Possible Inferior infarct Abnormal ECG When compared with ECG of 03-JUL-2022 21:19, QRS axis Shifted right ST no longer depressed in Anterior leads Nonspecific T wave abnormality, improved in Inferior leads T wave inversion less evident in Anterior leads Referred By: María Lerner Electronically Signed By:ROLAND CANO MD
[2022-07-04] MEDS: Potassium Phosphate/NS 15 MMOL/250 ML PLAST..BAG 62.5 MMOL IV (08:37)
[2022-07-04] MEDS: vancomycin HCL 1,250 MG in 0.9 % Sodium Chloride 250 ML 166.67 MG IV (10:00)
--- NOTE | 2022-07-04 15:14 | MHC.CM.PN ---
IMM 07/04/22 MALE 61 DX SEPSIS He lives at [facility]. His Guardian is energy attorney Manuel Marcossherri. The IMM has been sent via certified mail to [facility] [place].Patient is admitted to ICU. DP return to [facility] LTC via BLS.
[2022-07-04] MEDS: Norepinephrine Bitartrate/D5W 8 MG/250 ML PLAST..BAG 10.09 MG IV (19:00)
[2022-07-04 20:33] LABS: Vancomycin Trough 16.8 mcg/mL (10.0-20.0)
[2022-07-04] MEDS: vancomycin HCL 1,000 MG in 0.9 % Sodium Chloride 250 ML 270 MG IV (22:04)
[2022-07-05] VITALS (28 sets, daily range): BP systolic 93–130; BP diastolic 47–66; PULSE 51–87; RESP 14–23; TEMP 36.8–38; O2SAT 91–99; BMI 29.5
[2022-07-05] MEDS: Albumin Human 25 % 100 ML IV (01:55)
[2022-07-05] MEDS: Enoxaparin Sodium 40 MG/0.4 ML SYRINGE SUBCUT (01:55)
[2022-07-05] MEDS: Piperacillin Sodium/Tazobactam 4.5 GM in 0.9 % Sodium Chloride 100 ML IV ×3 (04:48→21:56)
[2022-07-05 05:28] LABS: VBG Base Excess -1.1 mmol/L; VBG HCO3 22 mmol/L (22-26); VBG pCO2 34 mmHg; VBG pH 7.42 (7.32-7.43); VBG pO2 45 mmHg
[2022-07-05 05:36] LABS: Venous Blood Gas Refer to POC result
[2022-07-05 05:51] LABS: MANUAL DIFF FLAG NO
[2022-07-05 05:55] LABS: Basophils Percent Auto 0.4 % (0-2); Eosinophils Absolute Auto 0.1 X10*3/uL (0.0-0.4); Hematocrit 29.9 % (42.0-52.0); Hemoglobin 9.9 g/dl (14.0-18.0); Imm Gran Abs Auto 0.05 X10*3/uL (0.00-0.03); Imm Gran Pct Auto 0.4 % (0.0-0.4); Lymphocytes Absolute Auto 1.7 X10*3/uL (1.2-4.9); Lymphocytes Percent Auto 15.4 % (20-40); Mean Corpuscular HGB Conc 33.1 g/dl (31.0-36.0); Mean Corpuscular Hemoglobin 31.9 pg (27.0-33.0); Mean Corpuscular Volume 96.5 fL (80.0-98.0); Mean Platelet Volume 12.1 fL (9.4-12.4); Monocytes Absolute Auto 0.5 X10*3/uL (0.1-1.2); Monocytes Percent Auto 4.5 % (2-11); Neutrophils Absolute Auto 8.8 x10*3/uL (2.0-8.3); Neutrophils Percent Auto 78.3 % (45-73); Platelet Count 102 X10*3/uL (160-400); Red Cell Distribution Width 13.8 % (11.0-16.0); White Blood Count 11.2 X10*3/uL (4.8-10.8)
[2022-07-05 06:24] LABS: Alanine Aminotransferase 11 U/L (0-40); Albumin Level 3.7 g/dL (3.5-5.0); Alkaline Phosphatase 59 U/L (39-117); Anion Gap 14 (12-20); Aspartate Amino Transferase 24 U/L (5-37); Bilirubin Total 0.8 mg/dL (0.0-1.0); Blood Urea Nitrogen 9 mg/dL (9-16); Calcium 8.2 mg/dL (8.4-10.2); Carbon Dioxide 22 mmol/L (22-29); Chloride 110 mmol/L (96-108); Creatinine Clr Calc Pharmacy 102.3; Estimated Glomerular Filt Rate > 60; Glucose Random 56 mg/dL (60-115); Magnesium 1.8 mg/dL (1.6-2.6); Phosphorus 1.6 mg/dL (2.7-4.5); Potassium 3.7 mmol/L (3.3-5.1); Sodium 142 mmol/L (135-145)
[2022-07-05] MEDS: Dextrose 10 % 250 ML 750 ML IV (07:05)
[2022-07-05 07:29] LABS: Glucose, Whole Blood 137 mg/dL (60-115)
[2022-07-05 07:39] LABS: Glucose, Whole Blood 106 mg/dL (60-115)
[2022-07-05 07:56] LABS: Glucose, Whole Blood 90 mg/dL (60-115)
[2022-07-05] MEDS: Potassium Phosphate/NS 15 MMOL/250 ML PLAST..BAG 62.5 MMOL IV (08:30)
[2022-07-05] MEDS: vancomycin HCL 1,000 MG in 0.9 % Sodium Chloride 250 ML 270 MG IV ×2 (11:06→21:59)
--- NOTE | 2022-07-05 11:12 | P.PNCC_ITS ---
Subjective Subjective Date of Service: 07/05/22 Interval History: 61-year-old gentleman with underlying history schizophrenia, dysphagia status post pack placement, COPD, hypothyroidism hypertension admitted on 07/04/2022 with septic shock with Gram-positive bacteremia with ersypelas as a source requiring vasopressor support. Patient started Levophed, broad-spectrum antibiotics, and admitted to the intensive care unit. No events overnight. Pressor requirements are improving. Critical Care Time (minutes): 45 Physical Exam Vital Signs: Vital Signs: Last Vital Signs Temp 99.1 F 07/05/22 10:00 Pulse 55 07/05/22 10:00 Resp 23 H 07/05/22 10:00 BP 122/60 07/05/22 10:00 Pulse Ox 95 07/05/22 10:00 O2 Del Method Room Air 07/05/22 10:00 BMI result Body Mass Index 29.5 Const: General: no acute distress, alert and awake Nutritional Appearance: Edematous Eyes: Sclerae: sclerae normal EOM: EOMs intact bilaterally Neck: Neck: Yes no lymphadenopathy, Yes trachea midline and Yes supple Resp: Effort & Inspection: normal respiratory effort and no respiratory distress Auscultation: clear to auscultation bilaterally Cardio: Rate: regular rate Rhythm: regular rhythm Heart sounds: no gallops, no murmurs and no rubs GI: Inspection: Yes G-tube present Palpation (GI): Soft to palpation and Other GI palpation findings present ( Nontender) Auscultation: normal bowel sounds Skin: Other: Right flank/back - ersypelas Extrem: General: No clubbing, No cyanosis and Yes edema (1+ bilateral) Objective Data Labs 07/05/22 05:19 07/05/22 05:19 Labs: Laboratory Results - last 24 hr 07/04/22 07/05/22 07/05/22 20:00 05:19 05:19 WBC 11.2 H RBC 3.10 L D Hgb 9.9 L D Hct 29.9 L D MCV 96.5 MCH 31.9 MCHC 33.1 RDW 13.8 Plt Count 102 L D MPV 12.1 Immature Gran % (Auto) 0.4 Neut % (Auto) 78.3 H Lymph % (Auto) 15.4 L [place] % (Auto) 4.5 Eos % (Auto) 1.0 Baso % (Auto) 0.4 Lymph # (Auto) 1.7 [place] # (Auto) 0.5 Eos # (Auto) 0.1 Baso # (Auto) 0.0 Abs Immat Gran (auto) 0.05 H Absolute Neuts (auto) 8.8 H Absolute Nucleated RBC 0.000 Nucleated RBC % (auto) 0.0 VBG pH VBG pCO2 VBG pO2 VBG HCO3 VBG O2 Saturation VBG Base Excess Sodium 142 Potassium 3.7 Chloride 110 H Carbon Dioxide 22 Anion Gap 14 BUN 9 Creatinine 0.87 Estim Creat Clear Calc 102.3 Estimated GFR > 60 POC Glucose Random Glucose 56 L* Calcium 8.2 L D Phosphorus 1.6 L Magnesium 1.8 Total Bilirubin 0.8 AST 24 ALT 11 Alkaline Phosphatase 59 Total Protein 6.0 L Albumin 3.7 Vancomycin Trough 16.8 07/05/22 07/05/22 07/05/22 05:21 07:19 07:36 WBC RBC Hgb Hct MCV MCH MCHC RDW Plt Count MPV Immature Gran % (Auto) Neut % (Auto) Lymph % (Auto) [place] % (Auto) Eos % (Auto) Baso % (Auto) Lymph # (Auto) [place] # (Auto) Eos # (Auto) Baso # (Auto) Abs Immat Gran (auto) Absolute Neuts (auto) Absolute Nucleated RBC Nucleated RBC % (auto) VBG pH 7.42 VBG pCO2 34 VBG pO2 45 VBG HCO3 22 VBG O2 Saturation 78.0 VBG Base Excess -1.1 Sodium Potassium Chloride Carbon Dioxide Anion Gap BUN Creatinine Estim Creat Clear Calc Estimated GFR POC Glucose 137 H 106 Random Glucose Calcium Phosphorus Magnesium Total Bilirubin AST ALT Alkaline Phosphatase Total Protein Albumin Vancomycin Trough 07/05/22 07:53 WBC RBC Hgb Hct MCV MCH MCHC RDW Plt Count MPV Immature Gran % (Auto) Neut % (Auto) Lymph % (Auto) [place] % (Auto) Eos % (Auto) Baso % (Auto) Lymph # (Auto) [place] # (Auto) Eos # (Auto) Baso # (Auto) Abs Immat Gran (auto) Absolute Neuts (auto) Absolute Nucleated RBC Nucleated RBC % (auto) VBG pH VBG pCO2 VBG pO2 VBG HCO3 VBG O2 Saturation VBG Base Excess Sodium Potassium Chloride Carbon Dioxide Anion Gap BUN Creatinine Estim Creat Clear Calc Estimated GFR POC Glucose 90 Random Glucose Calcium Phosphorus Magnesium Total Bilirubin AST ALT Alkaline Phosphatase Total Protein Albumin Vancomycin Trough Microbiology Microbiology Results: Microbiology 07/03/22 20:54 Blood - Venous Blood Culture - Preliminary Prelim: GPC Gram Stain only 07/03/22 20:54 Blood - Venous Blood Culture - Preliminary No growth after 24 hours. Progress Note: A&P Assessment and plan (1) Gram-positive bacteremia: Status: Acute (2) Dysphagia: Status: Acute (3) Gastrostomy in place: Status: Acute (4) Schizophrenia: Status: Acute Plan Assessment: 61-year-old gentleman with underlying schizophrenia, dementia, dysphagia status post PEG Plan: Neuro: Underlying dementia with aspiration status post PEG. Cardiac: Septic shock, continue to titrate of pressors as tolerated. Pulmonary: No acute issues. Renal: No acute issues. Endo: No acute issues. Underlying hypothyroidism. GI: No acute issues. Dysphagia status post PEG. ID: Gram-positive bacteremia with scan source, continue on broad-spectrum antibiotics until cultures are finalized. Heme/Onc: No acute issues. Psych: Underlying schizophrenia - continue valproate and quetiapine. Miscellaneous: No acute issues. Prophylaxis: Heparin Diet: Tube feeds Critical care time spent: 45 minutes Quality Stroke Does the patient have a stroke diagnosis?: No VTE Prior VTE?: No VTE Risk Level:: Medical - moderate - high VTE Device Contraindication: Treatment Not Indicated VTE Drug Contraindication: N/A - Med Ordered
[2022-07-05 17:56] LABS: VBG Base Excess 1.5 mmol/L; VBG HCO3 24 mmol/L (22-26); VBG pCO2 33 mmHg; VBG pH 7.47 (7.32-7.43); VBG pO2 50 mmHg
[2022-07-05 18:00] LABS: Venous Blood Gas Refer to POC result
[2022-07-05 18:18] LABS: Glucose, Whole Blood 79 mg/dL (60-115)
[2022-07-05 20:33] LABS: Vancomycin Random 16.3 mcg/mL (15-20)
[2022-07-05] MEDS: QUEtiapine Fumarate 100 MG TABLET PO (22:00)
[2022-07-05] MEDS: HaloperidoL 5 MG TABLET OG-TUBE (23:53)
[2022-07-06] VITALS (16 sets, daily range): BP systolic 103–138; BP diastolic 43–78; PULSE 60–77; RESP 16–20; TEMP 36.1–36.9; O2SAT 91–96; BMI 28.8
[2022-07-06 00:12] LABS: Glucose, Whole Blood 90 mg/dL (60-115)
[2022-07-06] MEDS: Enoxaparin Sodium 40 MG/0.4 ML SYRINGE SUBCUT (01:56)
[2022-07-06] MEDS: Piperacillin Sodium/Tazobactam 4.5 GM in 0.9 % Sodium Chloride 100 ML IV ×3 (04:28→21:09)
[2022-07-06 05:21] LABS: MANUAL DIFF FLAG NO
[2022-07-06 05:22] LABS: Basophils Percent Auto 0.4 % (0-2); Eosinophils Absolute Auto 0.3 X10*3/uL (0.0-0.4); Eosinophils Percent Auto 3.8 % (0-4); Hematocrit 33.1 % (42.0-52.0); Hemoglobin 10.9 g/dl (14.0-18.0); Imm Gran Abs Auto 0.05 X10*3/uL (0.00-0.03); Imm Gran Pct Auto 0.6 % (0.0-0.4); Lymphocytes Absolute Auto 1.9 X10*3/uL (1.2-4.9); Lymphocytes Percent Auto 24.1 % (20-40); Mean Corpuscular HGB Conc 32.9 g/dl (31.0-36.0); Mean Corpuscular Hemoglobin 31.9 pg (27.0-33.0); Mean Corpuscular Volume 96.8 fL (80.0-98.0); Mean Platelet Volume 11.6 fL (9.4-12.4); Monocytes Absolute Auto 0.5 X10*3/uL (0.1-1.2); Monocytes Percent Auto 6.2 % (2-11); Neutrophils Absolute Auto 5.1 x10*3/uL (2.0-8.3); Neutrophils Percent Auto 64.9 % (45-73); Platelet Count 117 X10*3/uL (160-400); Red Blood Count 3.42 X10*6/uL (4.60-5.80); Red Cell Distribution Width 13.8 % (11.0-16.0); White Blood Count 7.9 X10*3/uL (4.8-10.8)
[2022-07-06 05:45] LABS: Albumin Level 3.3 g/dL (3.5-5.0); Anion Gap 10 (12-20); Blood Urea Nitrogen 7 mg/dL (9-16); Calcium 8.3 mg/dL (8.4-10.2); Carbon Dioxide 27 mmol/L (22-29); Chloride 110 mmol/L (96-108); Creatinine Clr Calc Pharmacy 94.7; Estimated Glomerular Filt Rate > 60; Glucose Random 90 mg/dL (60-115); Phosphorus 2.2 mg/dL (2.7-4.5); Potassium 3.4 mmol/L (3.3-5.1); Sodium 144 mmol/L (135-145)
[2022-07-06] MEDS: Potassium Phosphate/NS 15 MMOL/250 ML PLAST..BAG 62.5 MMOL IV (05:59)
[2022-07-06] MEDS: Levothyroxine Sodium 25 MCG TABLET 12.5 MCG PO (05:59)
--- NOTE | 2022-07-06 09:14 | P.PNCC_ITS ---
Subjective Subjective Date of Service: 07/06/22 Interval History: 61-year-old male who is a and instead chronically institutionalized schizophrenic with chronic dysphagia for which she has a PEG tube was admitted with fever and hypotension clearly septic 1/2 blood cultures have grown Gram- positive cocci in clusters still awaiting a species but he did present with a rapidly spreading rubor for of from the CC left side of his chest down to his hip now and it looked like either and erysipelas versus cellulitis so he is treated with combination of vancomycin and piperacillin awaiting the culture results but he is unable to voice a complaint unfortunately but initially required Levophed for a borderline blood pressure and he has been off the Levophed since the night maintaining pressure is 110/70 for a mean of 82 in sinus rhythm with a rate of 78 room air oxygen saturation 93% and rapidly improving physical signs of the rubor Critical Care Time (minutes): 45 Comment: awake without distress and simply on room air good bilateral carotid upstrokes bedside echo with normal LV function skin rubor greatly improved abdomen benign with no organomegaly nontender lungs by x-ray with chronically elevated right hemidiaphragm Physical Exam Vital Signs: Vital Signs: Last Vital Signs Temp 98.2 F 07/06/22 08:59 Pulse 67 07/06/22 08:59 Resp 16 07/06/22 08:59 BP 111/57 L 07/06/22 08:59 Pulse Ox 92 07/06/22 08:59 O2 Del Method Room Air 07/06/22 08:59 FiO2 94 07/06/22 02:00 BMI result Body Mass Index 28.8 Objective Data Labs 07/06/22 05:15 07/06/22 05:15 Labs: Laboratory Results - last 24 hr 07/05/22 07/05/22 07/05/22 17:45 18:13 20:06 WBC RBC Hgb Hct MCV MCH MCHC RDW Plt Count MPV Immature Gran % (Auto) Neut % (Auto) Lymph % (Auto) [place] % (Auto) Eos % (Auto) Baso % (Auto) Lymph # (Auto) [place] # (Auto) Eos # (Auto) Baso # (Auto) Abs Immat Gran (auto) Absolute Neuts (auto) Absolute Nucleated RBC Nucleated RBC % (auto) VBG pH 7.47 H VBG pCO2 33 VBG pO2 50 VBG HCO3 24 VBG O2 Saturation 82.0 VBG Base Excess 1.5 Sodium Potassium Chloride Carbon Dioxide Anion Gap BUN Creatinine Estim Creat Clear Calc Estimated GFR POC Glucose 79 Random Glucose Calcium Phosphorus Magnesium Albumin Random Vancomycin 16.3 07/06/22 07/06/22 07/06/22 00:08 05:15 05:15 WBC 7.9 RBC 3.42 L Hgb 10.9 L Hct 33.1 L MCV 96.8 MCH 31.9 MCHC 32.9 RDW 13.8 Plt Count 117 L MPV 11.6 Immature Gran % (Auto) 0.6 H Neut % (Auto) 64.9 Lymph % (Auto) 24.1 [place] % (Auto) 6.2 Eos % (Auto) 3.8 Baso % (Auto) 0.4 Lymph # (Auto) 1.9 [place] # (Auto) 0.5 Eos # (Auto) 0.3 Baso # (Auto) 0.0 Abs Immat Gran (auto) 0.05 H Absolute Neuts (auto) 5.1 Absolute Nucleated RBC 0.000 Nucleated RBC % (auto) 0.0 VBG pH VBG pCO2 VBG pO2 VBG HCO3 VBG O2 Saturation VBG Base Excess Sodium 144 Potassium 3.4 Chloride 110 H Carbon Dioxide 27 Anion Gap 10 L BUN 7 L Creatinine 0.93 Estim Creat Clear Calc 94.7 Estimated GFR > 60 POC Glucose 90 Random Glucose 90 Calcium 8.3 L Phosphorus 2.2 L Magnesium 2.0 Albumin 3.3 L Random Vancomycin Microbiology Microbiology Results: Microbiology 07/03/22 20:54 Blood - Venous Blood Culture - Preliminary No growth after 48 hours. 07/03/22 20:54 Blood - Venous Blood Culture - Preliminary Prelim: GPC Gram Stain only Progress Note: A&P Assessment and plan (1) Cellulitis: Status: Acute (2) Cellulitis of left lower limb: Status: Acute (3) Sepsis associated hypotension: Status: Acute (4) Severe sepsis: Status: Acute (5) Gram-positive bacteremia: Status: Acute (6) Dysphagia: Status: Acute (7) Gastrostomy in place: Status: Acute (8) Schizophrenia: Status: Acute Plan continue combined antibiotics pending the results of the final culture and sensitivity and able to be maintained on his diet and of course DVT prophylaxis and at this point he is ready for transfer because he has done very well off pressors Quality Stroke Does the patient have a stroke diagnosis?: No VTE Prior VTE?: No VTE Risk Level:: Medical - moderate - high VTE Device Contraindication: Treatment Not Indicated VTE Drug Contraindication: N/A - Med Ordered
--- NOTE | 2022-07-06 09:30 | MHC.CLN ---
RE: CONSULT PT REQUIRES TF FOR 100% NUTRITION SUPPORT PT CURRENTLY RECEIVING JEVITY 1.0 AT MAX GOAL RATE 60ML/HR PROVIDES 1526KCALS, 64G PROTEIN, 1202ML FREE WATER RECOMMEND TF JEVITY 1.0 AT MAX GOAL RATE 75ML/HR WITH 120ML FWF Q 6 HRS TO PROVIDE 1908KCALS (23.6KCLAS/KG BASED ON CMW), 80G PROTEIN (.98G/KG), 1983ML TOTAL WATER FROM FORMULA AND FLUSHES (24ML/KG) MONITOR TOLERANCE, RESIDUALS AND LYTES SEE ALSO FULL CLINICAL NUTRITION ASSESSMENT
[2022-07-06] MEDS: vancomycin HCL 1,000 MG in 0.9 % Sodium Chloride 250 ML 270 MG IV (10:11)
--- NOTE | 2022-07-06 12:20 | PC.NURSE ---
Assumed care at 0700. Patient off Levophed support since approximately 0130 07/06-see EMAR. SBP 100s, MAPs >65. Patient on RA, O2 sat >88% (Goal per MIXING SUPERVISOR), no complaints of SOB/Pain. Patient AO to self only, speech garbled, mumbled, and unclear. patient tolerating feeds via PEG, no residuals. Transfer to S3 ordered, nurse-nurse report given to Comfort MARIO. Tavarez removed, DTV by 1745 07/06. TLC removed. Patient bathed, oral care and Q2 repositioning performed. Patient transported to S3 by ICU community health worker.
--- NOTE | 2022-07-06 16:09 | PC.NURSE ---
1230 residual checked was 0, 120ml water flush given and tube feeding increased by 10ml/hr per order. Current rate is now 70ml/hr, patient tolerating well
--- NOTE | 2022-07-06 16:35 | PC.NURSE ---
1630 residual <5ml, tube feeding increased to max rate of 75ml/hr
[2022-07-06 20:29] LABS: Vancomycin Random 18.1 mcg/mL (15-20)
[2022-07-06] MEDS: QUEtiapine Fumarate 100 MG TABLET PO (21:09)
[2022-07-06] MEDS: vancomycin HCL 750 MG in 0.9 % Sodium Chloride 250 ML 265 MG IV (21:09)
[2022-07-07] MEDS: Enoxaparin Sodium 40 MG/0.4 ML SYRINGE SUBCUT (01:11)
[2022-07-07 04:00] VITALS: BP 114/63; PULSE 68; RESP 16; TEMP 35.8; O2SAT 93
[2022-07-07] MEDS: Piperacillin Sodium/Tazobactam 4.5 GM in 0.9 % Sodium Chloride 100 ML IV ×3 (05:49→21:19)
[2022-07-07] MEDS: Levothyroxine Sodium 25 MCG TABLET 12.5 MCG PO (05:49)
[2022-07-07 06:17] LABS: Creatinine Clr Calc Pharmacy 107.4; Estimated Glomerular Filt Rate > 60
[2022-07-07 08:00] VITALS: BP 122/76; PULSE 73; RESP 18; TEMP 36.3; O2SAT 94
[2022-07-07] MEDS: vancomycin HCL 750 MG in 0.9 % Sodium Chloride 250 ML 265 MG IV ×2 (09:11→21:53)
[2022-07-07 15:22] VITALS: BP 119/66; PULSE 68; RESP 17; TEMP 36; O2SAT 93
--- NOTE | 2022-07-07 15:40 | P.PNIM_ITS ---
Subjective Subjective Date of Service: 07/07/22 Interval History: f/u on septic shock that required ICU level of care with vasopressores interval no sins of sepsis, wants ice chips Physical Exam Vital Signs: Vital Signs: Last Vital Signs Temp 96.8 F 07/07/22 15:22 Pulse 68 07/07/22 15:22 Resp 17 07/07/22 15:22 BP 119/66 07/07/22 15:22 Pulse Ox 93 07/07/22 15:22 O2 Del Method Room Air 07/07/22 15:22 FiO2 94 07/06/22 02:00 BMI result Body Mass Index 28.8 Const: Other: General: Alert, no distress, Resp: CTA bilateral CVS: S1,S2,RRR GI: +BS, NT, no distention Skin: previously described erythema has nearly all receded Neuro: motor grossly intact Psych: appropriate affect Objective Data Active Medications Enoxaparin Sodium (Enoxaparin Sodium 40 Mg/0.4 Ml Syringe) 40 mg SUBCUT Q24H [facility] Last Admin: 07/07/22 01:11 Dose: 40 mg Documented By: ANAND Piperacillin Sod/Tazobactam (Sod 4.5 gm/ Sodium Chloride) 100 mls @ 200 mls/hr IV Q8H [facility] Last Admin: 07/07/22 14:37 Dose: 200 mls/hr Documented By: TREVOR Vancomycin HCl 750 mg/ Sodium (Chloride) 265 mls @ 265 mls/hr IV Q12H [facility] Last Infusion: 07/07/22 10:25 Dose: 0 mls/hr Documented By: TREVOR Lactulose (Lactulose 20 Gm/30 Ml Solution) 20 gm PO TID PRN PRN Reason: Constipation Levothyroxine Sodium (Levothyroxine Sodium 25 Mcg Tablet) 12.5 mcg PO JAMIL LY@0600 [facility] Last Admin: 07/07/22 05:49 Dose: 12.5 mcg Documented By: ANAND Pharmacy Consult (Consult Rx Perform Med Rec) 1 each MISCELLANE ONCE PRN PRN Reason: Consult order Pharmacy Consult (Consult Rx Vancomycin Dosing) 1 each MISCELLANE DAILY PRN PRN Reason: Consult order Quetiapine Fumarate (Quetiapine Fumarate 100 Mg Tablet) 100 mg PO BEDTIME [facility] Last Admin: 07/06/22 21:09 Dose: 100 mg Documented By: ANAND Valproic Acid (Valproic Acid (As Sodium Salt) 250 Mg/5 Ml Solution) 500 mg PO BID DARYN Last Admin: 07/07/22 09:06 Dose: 500 mg Documented By: TREVOR Labs 07/06/22 05:15 07/07/22 05:14 Labs: Laboratory Results - last 24 hr 07/06/22 07/07/22 20:08 05:14 Estim Creat Clear Calc 107.4 Estimated GFR > 60 Random Vancomycin 18.1 Assessment and Plan (1) Sepsis associated hypotension: Status: Acute (2) Cellulitis: Status: Acute Plan 60-year-old male with a past history of hypertension, hypothyroidism, dysphagia status post G-tube, COPD, dementia, schizophrenia, osteoarthritis, history of aspiration pneumonia;? sent to [facility] with a chief complaint fever/altered mental status/cough from the custodial. ?Severe sepsis due to Cellulitis of Left lower extremit (starting from left ankle to hip and extending to left trunk see picture from ED/hpi note.), developped septic shock on 07/04 and was admitted to ICU for vasopressor therapy. Setptic shock resolved. Has 1/2 Group G strep, a caog netative stap likely contaminaton. He has been on Vanco and Zosyn, echo non diagnstic for endocardit is. ID has recommended 14 days of IV antibiotics History of dysphagia: Status post G-tube,? continue G-tube feedings, continue aspiration precaution . Not sure if safe for him to be have ice chips History of dementia/schizophrenia:home meds benztropine, Haldol, and clonazepam have been on hold since ICU. To continue Seroquel,? and valproic acid. Ask Psych regarding how to restart these meds History of COPD:? No apparent exacerbation. History of hypothyroidism:? Continue levothyroxine? home dose. DVT prophylaxis:? Lovenox Code status: Full code ?patient will need continued inpatient stay due to severe sepsis related to entire left lower extremity cellulitis and extending to left trunk requiring IV antibiotics that will need IV Abx Time Spent With Patient Time: Total time managing care of this patient today ____ minutes. Quality Stroke Does the patient have a stroke diagnosis?: No VTE Prior VTE?: No VTE Risk Level:: Medical - moderate - high VTE Device Contraindication: Treatment Not Indicated VTE Drug Contraindication: N/A - Med Ordered
[2022-07-07 19:32] VITALS: BP 114/56; PULSE 77; RESP 18; TEMP 36; O2SAT 95
[2022-07-07] MEDS: QUEtiapine Fumarate 100 MG TABLET PO (21:09)
--- NOTE | 2022-07-07 22:36 | PC.NURSE ---
pt refused vanco trough lab draw. Dr Eric aware. Dr Eric said to give 2200 dose of Vanco. Vanco given.
[2022-07-08] MEDS: Enoxaparin Sodium 40 MG/0.4 ML SYRINGE SUBCUT (00:51)
[2022-07-08 04:00] VITALS: BP 111/68; PULSE 76; RESP 16; TEMP 36.3; O2SAT 94
[2022-07-08] MEDS: Piperacillin Sodium/Tazobactam 4.5 GM in 0.9 % Sodium Chloride 100 ML IV (05:27)
[2022-07-08] MEDS: Levothyroxine Sodium 25 MCG TABLET 12.5 MCG PO (05:28)
[2022-07-08 07:44] VITALS: BP 121/67; PULSE 76; RESP 18; TEMP 36.3; O2SAT 94
--- NOTE | 2022-07-08 08:17 | P.PNIM_ITS ---
Subjective Subjective Date of Service: 07/08/22 Interval History: f/u on septic shock that required ICU level of care with vasopressores interval no sins of sepsis, no issues overnight Physical Exam Vital Signs: Vital Signs: Last Vital Signs Temp 97.4 F 07/08/22 07:44 Pulse 76 07/08/22 07:44 Resp 18 07/08/22 07:44 BP 121/67 07/08/22 07:44 Pulse Ox 94 07/08/22 07:44 O2 Del Method Room Air 07/08/22 07:44 FiO2 94 07/06/22 02:00 BMI result Body Mass Index 28.8 Const: Other: General: Alert, no distress, Resp: CTA bilateral CVS: S1,S2,RRR GI: +BS, NT, no distention Skin: previously described erythema has nearly all receded Neuro: motor grossly intact Psych: appropriate affect Objective Data Active Medications Enoxaparin Sodium (Enoxaparin Sodium 40 Mg/0.4 Ml Syringe) 40 mg SUBCUT Q24H [facility] Last Admin: 07/08/22 00:51 Dose: 40 mg Documented By: WAYNE Piperacillin Sod/Tazobactam (Sod 4.5 gm/ Sodium Chloride) 100 mls @ 200 mls/hr IV Q8H [facility] Last Infusion: 07/08/22 06:08 Dose: 0 mls/hr Documented By: WAYNE Vancomycin HCl 750 mg/ Sodium (Chloride) 265 mls @ 265 mls/hr IV Q12H [facility] Last Infusion: 07/07/22 22:58 Dose: 0 mls/hr Documented By: WAYNE Lactulose (Lactulose 20 Gm/30 Ml Solution) 20 gm PO TID PRN PRN Reason: Constipation Levothyroxine Sodium (Levothyroxine Sodium 25 Mcg Tablet) 12.5 mcg PO DAILY@0600 [facility] Last Admin: 07/08/22 05:28 Dose: 12.5 mcg Documented By: WAYNE Pharmacy Consult (Consult Rx Perform Med Rec) 1 each MISCELLANE ONCE PRN PRN Reason: Consult order Pharmacy Consult (Consult Rx Vancomycin Dosing) 1 each MISCELLANE DAILY PRN PRN Reason: Consult order Quetiapine Fumarate (Quetiapine Fumarate 100 Mg Tablet) 100 mg PO BEDTIME [facility] Last Admin: 07/07/22 21:09 Dose: 100 mg Documented By: WAYNE Valproic Acid (Valproic Acid (As Sodium Salt) 250 Mg/5 Ml Solution) 500 mg PO BID DARYN Last Admin: 07/07/22 21:10 Dose: 500 mg Documented By: WAYNE Labs 07/06/22 05:15 07/07/22 05:14 Assessment and Plan (1) Sepsis associated hypotension: Status: Acute (2) Cellulitis: Status: Acute Plan A 60-year-old man with a medical history of hypertension, hypothyroidism, dys phagia following G-tube insertion, chronic obstructive pulmonary disease (COPD), dementia, schizophrenia, osteoarthritis, and a previous history of aspiration pneumonia was transferred from a [facility] to [facility] with a chief complaint of fever, altered mental status, and cough. Upon arrival, it was discovered that he had developed severe sepsis due to cellulitis in his left lower extremity, which extended from his left ankle to his hip and left trunk, as shown in the picture from the emergency department (ED) and history of present illness (HPI) note. He subsequently developed septic shock on 07/04 and was treated with vasopressor therapy in the intensive care unit (ICU), which resolved the septic shock. Culture results showed 1/2 Group G streptococcus and a coagulase-negative staphylococcus, which was likely contamination. He has been receiving treatment with Vancomycin and Zosyn, and an echocardiogram was non-diagnostic for endocarditis. Stop Vanco and Zosyn 07/07, Add Ceftriaxone 2 gram 07/07. The infectious disease team has recommended 14 days of intravenous antibiotics. Given his history of dysphagia and previous G-tube insertion, the patient continues to receive G-tube feedings and aspiration precautions. There is uncertainty about whether it is safe for him to have ice chips. The patient's home medications for dementia/schizophrenia, including benztropine, Haldol, and clonazepam, have been on hold since his admission to the ICU. He will continue to receive Seroquel and valproic acid, and the psychiatric team will be consulted regarding restarting the other medications. His history of COPD does not appear to be exacerbating his current condition, and his levothyroxine dose for hypothyroidism will continue. He will receive Lovenox for deep vein thrombosis prophylaxis. The patient has a full code status, and his severe sepsis related to cellulitis requires continued inpatient care and IV antibiotics. Time Spent With Patient Time: Total time managing care of this patient today ____ minutes. Quality Stroke Does the patient have a stroke diagnosis?: No VTE Prior VTE?: No VTE Risk Level:: Medical - moderate - high VTE Device Contraindication: Treatment Not Indicated VTE Drug Contraindication: N/A - Med Ordered
[2022-07-08 08:38] LABS: Creatinine Clr Calc Pharmacy 102.4; Estimated Glomerular Filt Rate > 60
[2022-07-08] MEDS: cefTRIAXone sodium 2 GM in 0.9 % Sodium Chloride 50 ML IV (08:56)
--- NOTE | 2022-07-08 09:12 | MHC.CLN ---
F/U NUTRITION/HYDRATION VIA TUBE FEEDING. TOLERATING TUBE FEEDING AT MAX GOAL RATE: JEVITY 1.0 AT MAX GOAL RATE 75ML/HR WITH 120ML FREE WATER FLUSH Q 6 HRS. PROVIDES 1908 KCALS (23.6 KCALS/KG BASED ON CMW), 80 G PROTEIN (.98 G/KG CMW), 1983 ML TOTAL WATER FROM FORMULA AND FLUSHES (24 ML/KG CMW). MONITOR TOLERANCE, RESIDUALS, AND LYTES.
--- NOTE | 2022-07-08 13:22 | MHC.CM.PN ---
per rounds pt [facility] with a picc and iv antbiotics possible dc thur
[2022-07-08 15:39] VITALS: BP 135/76; PULSE 79; RESP 17; TEMP 36.9; O2SAT 95
[2022-07-08 19:25] VITALS: BP 129/60; PULSE 78; RESP 16; TEMP 36.6; O2SAT 95
[2022-07-08] MEDS: QUEtiapine Fumarate 100 MG TABLET PO (19:45)
[2022-07-09] MEDS: Enoxaparin Sodium 40 MG/0.4 ML SYRINGE SUBCUT (01:21)
[2022-07-09 03:46] VITALS: BP 121/66; PULSE 75; RESP 16; TEMP 36.1; O2SAT 93
[2022-07-09] MEDS: Levothyroxine Sodium 25 MCG TABLET 12.5 MCG PO (05:54)
[2022-07-09 06:57] LABS: Creatinine Clr Calc Pharmacy 102.4; Estimated Glomerular Filt Rate > 60
[2022-07-09 07:09] VITALS: BP 101/57; PULSE 71; RESP 16; TEMP 36.6; O2SAT 95
[2022-07-09] MEDS: cefTRIAXone sodium 2 GM in 0.9 % Sodium Chloride 50 ML IV (09:28)
--- NOTE | 2022-07-09 10:52 | PM.DS ---
DS: Providers Provider Date of Service: 07/09/22 Date of admission: 07/04/22 01:32 Primary care physician: PEARL JOHNSON DS: Diagnosis Discharge Diagnosis (1) Sepsis associated hypotension: Status: Resolved (2) Cellulitis: Status: Deleted DS: Summary Hospital Course Hospital Course: The patient is a 61-year-old male with past medical history of hypertension, hypothyroidism, chronic dysphagia status post G-tube for all feeds and meds, COPD, schizophrenia? who presented to the emergency department from [facility] due to? fever and left lower extremity celulitis and notably in severe sepsis. Initially vitals show a temp 103.6, HR 129, RR 29, blood pressure 89/61 satting 92% on room air.? Laboratory data significant for? WBC 18.8,? platelets 158, Hypotension improved with IVF and patient was put on broad spectrum antibotics and admitted to the floor. On 07/04, he decompensated with profound hypotension and was admitted to the ICU where he remained unitl 07/06 after vasopressor therapy. Hospital course: Septic shock, severe sepsis, Strep bacteremiaUpon arrival, it was discovered that he had severe sepsis due to cellulitis in his left lower extremity, which extended from his left ankle to his hip and left trunk, as shown in the picture from the emergency department (ED) and history of present illness (HPI) . He subsequently developed septic shock on 07/04 and was treated with vasopressor therapy in the intensive care unit (ICU), which resolved the septic shock. Culture results showed 1/2 Group G streptococcus and a coagulase-negative staphylococcus, which was likely contamination. He has been receiving treatment with Vancomycin and Zosyn, and an echocardiogram was non-diagnostic for endocarditis. Following infectioud disease evaluation we stopped Vanco and Zosyn 07/07, Add Ceftriaxone 2 gram 07/07. The infectious disease team has recommended 14 days of IV antibiotics with Ceftriaxone upon discharge Given his history of dysphagia and previous G-tube insertion, the patient continues to receive G-tube feedings and aspiration precautions. The patient's home medications for dementia/schizophrenia, including benztropine, Haldol, and clonazepam, have been on hold since his admission to the ICU. He will continue to receive Seroquel and valproic acid, and the psychiatric team will be consulted regarding restarting the other medications. His history of COPD does not appear to be exacerbating his current condition, and his levothyroxine dose for hypothyroidism will continue. He will receive Lovenox for deep vein thrombosis prophylaxis. Time Spent with Patient Time attestation: Total time managing care of this patient today ____ minutes. Discharge coordination time: Greater than 30 minutes Quality: Safe Use of Opioids Does Pt have an Active Cancer Diagnosis on the Problem List?: No Quality: Stroke Does the patient have a stroke diagnosis?: No Physical Exam Vital Signs: Vital Signs: Last Vital Signs Temp 98 F 07/09/22 07:09 Pulse 71 07/09/22 07:09 Resp 16 07/09/22 07:09 BP 101/57 L 07/09/22 07:09 Pulse Ox 95 07/09/22 07:09 O2 Del Method Room Air 07/09/22 07:09 FiO2 94 07/06/22 02:00 BMI result Body Mass Index 28.8 Const: Other: General: Alert, no distress, Resp: CTA bilateral CVS: S1,S2,RRR GI: +BS, NT, no distention Skin: previously described erythema has nearly all receded Neuro: motor grossly intact Psych: appropriate affect DS: Data Data Completed and Pending Completed studies during hospitalization [Text1]: Procedures Insertion of Infusion Device into Right Basilic Vein, Percutaneous Approach (06/29/21) Labs on day of discharge: Laboratory Results - last 24 hr 07/09/22 05:44 Creatinine 0.86 Estim Creat Clear Calc 102.4 Estimated GFR > 60 Discharge Plan Discharge Anticipated Discharge Date/Time: 07/09/22 10:53 Patient Disposition: er [facility] Discharge Diagnosis: Septic shock, cellulitis, severe sepsis. Referrals: [facility] [Outside] - 1 Week PEARL JOHNSON [Primary Care Provider] - 1 Week Discharge Medications: New ceftriaxone 2 gram Recon Soln 2 g IV Q24H Qty: 10 0RF Continued benztropine 0.5 mg Tablet 0.5 mg feeding tube BID Rx Instructions: AT 0600 AND 1800 haloperidol 5 mg Tablet 5 mg feeding tube DAILY@1800 acetaminophen 160 mg/5 mL Liquid 960 mg feeding tube BID Rx Instructions: TAKE A 6 AM AND 6 PM polyethylene glycol 3350 17 gram Powder In Packet 17 g feeding tube DAILY@1800 clonazepam 0.5 mg Tablet 0.5 mg feeding tube DAILY@1800 melatonin 3 mg Tablet 6 mg feeding tube DAILY@1800 quetiapine 100 mg Tablet 100 mg feeding tube BEDTIME levothyroxine 25 mcg Tablet 12.5 mcg feeding tube DAILY@0600 famotidine 20 mg Tablet 20 mg feeding tube DAILY@1800 valproic acid (as sodium salt) 250 mg/5 mL Solution 500 mg feeding tube BID levothyroxine 125 mcg Tablet 125 mcg feeding tube DAILY@0600 Rx Instructions: WITH 12.5 MCG TABLET ketoconazole 2 % Shampoo 1 appl TOPICAL MOTH@09 Patient Comments: WEDNESDAY & WEDNESDAY quetiapine 50 mg Tablet 50 mg feeding tube DAILY lactulose 20 gram/30 mL Solution 20 g PO TID PRN (Reason: Constipation) Discharge Orders: Discharge Order (Routine); Ordered 07/09/22 Ordered By: Lopez Razo Diet: Tube feed Activity on Discharge: As tolerated Stand Alone Forms: Patient Portal Discharge page Care Plan Goals: Full recovery Health Concerns: Septic shock, cellulitis, chronic dysphagia Plan of Treatment: To complete course of IV antibiotics with Cetriaxone for another 10 days continue Tube feed as before and follow up with PCP Flush midline with 50 units of heparin q shift and remove after completion of antibiotics Assessment: As above Discharge Date/Time: 07/09/22 19:40
[2022-07-09 11:37] LABS: COVID-19 Test Negative (Negative); IDNOW Serial# 08D9AD1C
--- NOTE | 2022-07-09 14:58 | MHC.CM.PN ---
DP: PT WILL BE DC BACK TO [facility] AFTER MID LINE PLACEMENT. [facility] LIAISON UPDATED. BLS TRANSPORT BOOKED FOR 6:30 PM VIA [place].
--- NOTE | 2022-07-09 17:42 | HO.MIDLINE ---
Midline Insertion MIDLINE INSERTION Diagnosis: Septic Shock Indication: Retirement antibiotics needed Pertinent Labs: reviewed Technique: Using sterile technique including cap and mask, glove and drape, the right arm was prepped and draped in the usual sterile fashion of full barrier technique with CHG. Using ultrasound guidance, right Basilic vein access was obtained twice by Jona Aguilar RN, but unable to advance guidewire. Right basilic vein access was then obtained by Leah Caldwell RN, but unable to pass guidewire. Right brachial vein access was then obtained by Leah Caldwell RN. A 20G X 8 CM NON-PASV Midline was positioned. The procedure was performed in S272. Ultrasound was used to document vein patency and for needle entry. A formal ultrasound picture was recorded. [employer] Clerk has released the line for use and it is currently dressed with a StatLock, Tegaderm, and CHG disc. Verification has been performed for blood return and line patency. Arm Circumference: 31.5 CM Equipment: BARD PowerGlide ST Midline Catheter Type: 20G X 8CM Non-PASV Midline Lot #: [id number]
[2022-07-09 17:55] VITALS: BP 140/81; PULSE 90; RESP 17; TEMP 36.6; O2SAT 93
--- NOTE | 2022-07-09 18:05 | PC.NURSE ---
pt to be discharged after line placement. md informed of pt's return. attempted to call facility to give report. peripheral IV removed.
--- NOTE | 2022-07-09 19:43 | PC.NURSE ---
Report given to EMS personnel, pt transported back to [facility] at 1940.
== END 2022-07-09 19:40 | disposition skilled nursing facility (03) | DRG 871 ==
LOC: HO.ED 21:03 → HO.ICU 07-04 02:02 → HO.S3 07-06 10:20
PROVIDERS: Internal Medicine Pulmonary Disease; Radiology Diagnostic Radiology; Admitting Provider Registered Nurse Community Health; Emergency Provider Emergency Medicine; PCP Emergency Medicine; Visit Provider Internal Medicine
DX: A41.9 Sepsis, unspecified organism (principal); R65.21 Severe sepsis with septic shock; L03.116 Cellulitis of left lower limb; L03.312 Cellulitis of back [any part except buttock and flank]; E03.9 Hypothyroidism, unspecified; R13.10 Dysphagia, unspecified; J44.9 Chronic obstructive pulmonary disease, unspecified; Z93.1 Gastrostomy status; F03.90 Unspecified dementia, unspecified severity, without behavioral disturbance, psychotic disturbance, mood disturbance, and anxiety; F20.9 Schizophrenia, unspecified; Z20.822 Contact with and (suspected) exposure to COVID-19; Z79.890 Hormone replacement therapy; Z79.899 Other long term (current) drug therapy
CPT/HCPCS: 36410; 36415; 71045; 80048; 80053; 80076; 80202; 81001; 82040; 82565; 82803; 82947; 83605; 83690; 83735; 84100; 84443; 84484; 85025; 85610; 87040; 87147; 87205; 87635; 93005; 99285; C1751; C1758; J0696; J1650; J2060; J2543; J3370; J3371; P9047

== ENCOUNTER 2022-12-03 20:51 | Emergency (ER) | payer OTHER, SELFPAY ==
--- NOTE | ~2022-12-03 | XR_ITS ---
EXAMINATION: XR ABDOMEN KUB CLINICAL INDICATION: G-tube check COMPARISON: None available. TECHNIQUE: AP view of the abdomen. FINDINGS: A single KUB reveals contrast injected through G-tube in the stomach with antegrade flow seen to the duodenum. There is minimal retrograde flow in the fundus. No extravasation of contrast seen. XR/XR KUB IMPRESSION: G-tube in distal stomach. Oral contrast injected through the stomach lies within the duodenum lobe. No extravasation seen to suggest any leak.
[2022-12-03 21:02] VITALS: BP 146/71; PULSE 74; RESP 19; TEMP 36.8; O2SAT 95
[2022-12-03 21:08] VITALS: BP 146/71; PULSE 74; PULSE 80; RESP 18; TEMP 36.8; O2SAT 95; BMI 30.8
--- NOTE | 2022-12-03 21:13 | PC.NURSE ---
Pt presents to er via EMS from [facility] in [place]. Per EMS, pt has a clogged g-tube and needs it replaced. Pt denies pain, nausea, vomiting. Pt resting in bed at this time, waiting to be seen by ED provider.
--- NOTE | 2022-12-03 21:19 | PC.NURSE ---
I attempted to flush G-tube. Tube would not pull back, nor flush water through. Pt still reports no pain.
[2022-12-03 21:26] LABS: MANUAL DIFF FLAG NO
[2022-12-03 21:32] LABS: Basophils Absolute Auto 0.1 X10*3/uL (0.0-0.2); Basophils Percent Auto 0.8 % (0-2); Eosinophils Absolute Auto 0.1 X10*3/uL (0.0-0.4); Eosinophils Percent Auto 1.7 % (0-4); Hematocrit 42.9 % (42.0-52.0); Hemoglobin 14.2 g/dl (14.0-18.0); Imm Gran Abs Auto 0.02 X10*3/uL (0.00-0.03); Imm Gran Pct Auto 0.2 % (0.0-0.4); Lymphocytes Absolute Auto 4.6 X10*3/uL (1.2-4.9); Lymphocytes Percent Auto 54.5 % (20-40); Mean Corpuscular HGB Conc 33.1 g/dl (31.0-36.0); Mean Corpuscular Hemoglobin 30.7 pg (27.0-33.0); Mean Corpuscular Volume 92.7 fL (80.0-98.0); Mean Platelet Volume 12.1 fL (9.4-12.4); Monocytes Absolute Auto 0.6 X10*3/uL (0.1-1.2); Neutrophils Percent Auto 35.8 % (45-73); Platelet Count 160 X10*3/uL (160-400); Red Blood Count 4.63 X10*6/uL (4.60-5.80); Red Cell Distribution Width 13.7 % (11.0-16.0); White Blood Count 8.4 X10*3/uL (4.8-10.8)
--- NOTE | 2022-12-03 21:49 | ED.GENADULT ---
HPI - General Adult General Chief complaint: General Medical Stated complaint: Coming from [facility] for a fall Time Seen by Provider: 12/03/22 21:22 Source: RN notes reviewed Mode of arrival: EMS Limitations: altered mental status History of Present Illness HPI narrative: Patient with developmental delay comes here for a clogged G-tube replacement no other active complaint no vomiting Related Data Home Medications Medication Instructions Recorded Confirmed acetaminophen 160 mg/5 mL oral 960 mg feeding tube BID 06/29/21 07/03/22 liquid benztropine 0.5 mg tablet 0.5 mg feeding tube BID 06/29/21 07/03/22 clonazepam 0.5 mg tablet 0.5 mg feeding tube DAILY@1800 06/29/21 07/03/22 famotidine 20 mg tablet 20 mg feeding tube DAILY@1800 06/29/21 07/03/22 haloperidol 5 mg tablet 5 mg feeding tube DAILY@1800 06/29/21 07/03/22 levothyroxine 125 mcg tablet 125 mcg feeding tube DAILY@0600 06/29/21 07/03/22 levothyroxine 25 mcg tablet 12.5 mcg feeding tube DAILY@0600 06/29/21 07/03/22 melatonin 3 mg tablet 6 mg feeding tube DAILY@1800 06/29/21 07/03/22 polyethylene glycol 3350 17 gram 17 g feeding tube DAILY@1800 06/29/21 07/03/22 oral powder packet quetiapine 100 mg tablet 100 mg feeding tube BEDTIME 06/29/21 07/03/22 valproic acid (as sodium salt) 250 500 mg feeding tube BID 06/29/21 07/03/22 mg/5 mL oral solution ketoconazole 2 % shampoo 1 appl topical MOTH@07/03/22 07/03/22 lactulose 20 gram/30 mL oral 20 g PO TID PRN Constipation 07/03/22 07/03/22 solution quetiapine 50 mg tablet 50 mg feeding tube DAILY 07/03/22 07/03/22 Previous Rx's Medication Instructions Recorded ceftriaxone 2 gram solution for 2 g IV Q24H #10 ea 07/09/22 injection Allergies Allergy/AdvReac Type Severity Reaction Status Date / Time No Known Allergies Allergy Unknown Verified 04/03/21 11:33 [No Known Allergies*] Review of Systems Review of Systems: Yes all other systems are reviewed and are negative PMFSH Past Medical History Medical History Dysphagia Osteoarthritis Hypothyroidism Hypertension COPD (chronic obstructive pulmonary disease) Gastrostomy in place Dementia Schizophrenia Social History Social History Household Members: Other Housing: Long-Term Do you presently have visiting nurse or other home services: Yes (SNF) Unable to assess alcohol history related to: Unable to respond Alcohol intake: never Patient Tobacco Use Status: Tobacco use Unknown Smoked in Last 30 Days: No Use of substances other than those prescribed or required for medical reasons: No Advance Directives: No Advance Directives Information Provided: No service: No Current occupational status: retired Physical Exam ED Vital Signs: Vital Signs - 24 hr 12/03/22 21:02 12/03/22 21:08 Temperature 98.3 F 98.3 F Pulse Rate 74 74 Respiratory Rate 19 18 Blood Pressure 146/71 H 146/71 H Pulse Oximetry 95 95 Oxygen Delivery Method Room Air Room Air BMI result Body Mass Index 30.8 Appearance: Alert. And awake No acute distress. Mentally challenged CVS: Normal heart rate and rhythm. Pulses normal. Respiratory: No respiratory distress. Equal air entry bilateral, Abdomen: Soft and nontender. Bowel sounds are present, no mass palpable, , G-tube in place Skin: Skin warm and dry. Normal skin color. Normal skin turgor. Extremities: No lower extremity edema. No calf tenderness Medications Administered Discontinued Medications Generic Name Dose Route Start Last Admin Trade Name Freq PRN Reason Stop Dose Admin Diatrizoate Meglum/Diatrizoate Sod 30 ml 12/03/22 22:42 12/03/22 22:43 Diatrizoate Meglumine, Sodium 30 Ml Solution PO 12/03/22 22:43 30 ml ONCE ONE Administration Procedures Feeding Tube Replacement Type of Tube: gastrostomy Insertion Site Prior to Procedure: clean Tube Used for Reinsertion: Bard Kyrgyz Tube Size (F): 22 Balloon size (mL): 10 Verification of Placement: KUB and gastrografin injection Tube Secured by: tape/dressing Patient Tolerated Procedure: well Medical Decision Making Lab Data 12/03/22 21:21 12/03/22 21:21 Labs: Lab Results 12/03/22 Range/Units 21:21 WBC 8.4 (4.8-10.8) X10*3/uL RBC 4.63 D (4.60-5.80) X10*6/uL Hgb 14.2 D (14.0-18.0) g/dl Hct 42.9 D (42.0-52.0) % MCV 92.7 (80.0-98.0) fL MCH 30.7 (27.0-33.0) pg MCHC 33.1 (31.0-36.0) g/dl RDW 13.7 (11.0-16.0) % Plt Count 160 D (160-400) X10*3/uL MPV 12.1 (9.4-12.4) fL Immature Gran % (Auto) 0.2 (0.0-0.4) % Neut % (Auto) 35.8 L (45-73) % Lymph % (Auto) 54.5 H (20-40) % Summit % (Auto) 7.0 (2-11) % Eos % (Auto) 1.7 (0-4) % Baso % (Auto) 0.8 (0-2) % Lymph # (Auto) 4.6 (1.2-4.9) X10*3/uL [place] # (Auto) 0.6 (0.1-1.2) X10*3/uL Eos # (Auto) 0.1 (0.0-0.4) X10*3/uL Baso # (Auto) 0.1 (0.0-0.2) X10*3/uL Abs Immat Gran (auto) 0.02 (0.00-0.03) X10*3/uL Absolute Neuts (auto) 3.0 (2.0-8.3) x10*3/uL Absolute Nucleated RBC 0.000 (0.0-0.012) X10*3/uL Nucleated RBC % (auto) 0.0 (0.0-0.2) /100WBC Sodium 139 (135-145) mmol/L Potassium 3.8 (3.3-5.1) mmol/L Chloride 106 (96-108) mmol/L Carbon Dioxide 28 (22-29) mmol/L Anion Gap 9 L (12-20) BUN 13 (9-16) mg/dL Creatinine 0.84 (0.5-1.4) mg/dL Estim Creat Clear Calc 90.8 Estimated GFR > 60 Random Glucose 76 (60-115) mg/dL Calcium 8.8 D (8.4-10.2) mg/dL Total Bilirubin 0.4 (0.0-1.0) mg/dL AST 25 (5-37) U/L ALT 16 (0-40) U/L Alkaline Phosphatase 90 (39-117) U/L Total Protein 6.8 (6.5-8.0) g/dL Albumin 3.4 L (3.5-5.0) g/dL Discharge Plan Discharge Clinical Impression: Gastrostomy tube dysfunction Patient Disposition: Xfer SNF Transfer Details: 22 Kyrgyz new G-tube was placed and confirmed by Xray Instructions: How to Use and Care for Your PEG Tube (ED) Additional Instructions: Okay to use G-tube Prescriptions: No Action benztropine 0.5 mg Tablet 0.5 mg feeding tube BID Rx Instructions: AT 0600 AND 1800 haloperidol 5 mg Tablet 5 mg feeding tube DAILY@1800 acetaminophen 160 mg/5 mL Liquid 960 mg feeding tube BID Rx Instructions: TAKE A 6 AM AND 6 PM polyethylene glycol 3350 17 gram Powder In Packet 17 g feeding tube DAILY@1800 clonazepam 0.5 mg Tablet 0.5 mg feeding tube DAILY@1800 melatonin 3 mg Tablet 6 mg feeding tube DAILY@1800 quetiapine 100 mg Tablet 100 mg feeding tube BEDTIME levothyroxine 25 mcg Tablet 12.5 mcg feeding tube DAILY@0600 famotidine 20 mg Tablet 20 mg feeding tube DAILY@1800 valproic acid (as sodium salt) 250 mg/5 mL Solution 500 mg feeding tube BID levothyroxine 125 mcg Tablet 125 mcg feeding tube DAILY@0600 Rx Instructions: WITH 12.5 MCG TABLET ketoconazole 2 % Shampoo 1 appl TOPICAL MOTH@09 Patient Comments: WEDNESDAY & WEDNESDAY quetiapine 50 mg Tablet 50 mg feeding tube DAILY lactulose 20 gram/30 mL Solution 20 g PO TID PRN (Reason: Constipation) ceftriaxone 2 gram Recon Soln 2 g IV Q24H Qty: 10 0RF Interventions: ED Discharge Assessment Last Done: 12/04/22 00:56 Discharge Date/Time: 12/04/22 00:56
[2022-12-03 22:08] LABS: Alanine Aminotransferase 16 U/L (0-40); Albumin Level 3.4 g/dL (3.5-5.0); Alkaline Phosphatase 90 U/L (39-117); Anion Gap 9 (12-20); Aspartate Amino Transferase 25 U/L (5-37); Bilirubin Total 0.4 mg/dL (0.0-1.0); Blood Urea Nitrogen 13 mg/dL (9-16); Calcium 8.8 mg/dL (8.4-10.2); Carbon Dioxide 28 mmol/L (22-29); Chloride 106 mmol/L (96-108); Glucose Random 76 mg/dL (60-115); Potassium 3.8 mmol/L (3.3-5.1); Sodium 139 mmol/L (135-145); Total Protein 6.8 g/dL (6.5-8.0)
[2022-12-03 22:39] LABS: Creatinine Clr Calc Pharmacy 90.8; Estimated Glomerular Filt Rate > 60
[2022-12-03] MEDS: Diatrizoate Meglumine, Sodium 30 ML SOLUTION PO (22:43)
== END 2022-12-04 00:56 | disposition skilled nursing facility (03) ==
PROVIDERS: Emergency Provider Internal Medicine; PCP Emergency Medicine
DX: K94.23 Gastrostomy malfunction (principal); Z79.899 Other long term (current) drug therapy
CPT/HCPCS: 36415; 43762; 74018; 80053; 85025; 99283; 99284

== ENCOUNTER 2024-04-07 01:35 | Inpatient (IN) | payer OTHER, SELFPAY ==
[2024-04-07] VITALS (9 sets, daily range): BP systolic 105–138; BP diastolic 55–81; PULSE 72–104; RESP 12–18; TEMP 36.1–37.1; O2SAT 94–100; BMI 23.9
[2024-04-07 02:01] LABS: MANUAL DIFF FLAG NO
[2024-04-07 02:03] LABS: Basophils Absolute Auto 0.1 X10*3/uL (0.0-0.2); Basophils Percent Auto 0.4 % (0-2); Eosinophils Absolute Auto 0.1 X10*3/uL (0.0-0.4); Eosinophils Percent Auto 0.7 % (0-4); Hematocrit 46.5 % (42.0-52.0); Hemoglobin 15.7 g/dl (14.0-18.0); Imm Gran Abs Auto 0.03 X10*3/uL (0.00-0.03); Imm Gran Pct Auto 0.2 % (0.0-0.4); Lymphocytes Absolute Auto 2.3 X10*3/uL (1.2-4.9); Lymphocytes Percent Auto 18.5 % (20-40); Mean Corpuscular HGB Conc 33.8 g/dl (31.0-36.0); Mean Corpuscular Hemoglobin 30.9 pg (27.0-33.0); Mean Corpuscular Volume 91.5 fL (80.0-98.0); Mean Platelet Volume 11.6 fL (9.4-12.4); Monocytes Absolute Auto 0.5 X10*3/uL (0.1-1.2); Monocytes Percent Auto 4.1 % (2-11); Neutrophils Absolute Auto 9.6 x10*3/uL (2.0-8.3); Neutrophils Percent Auto 76.1 % (45-73); Platelet Count 255 X10*3/uL (160-400); Red Blood Count 5.08 X10*6/uL (4.60-5.80); Red Cell Distribution Width 13.8 % (11.0-16.0); White Blood Count 12.6 X10*3/uL (4.8-10.8)
[2024-04-07 02:07] LABS: INTERNATIONAL NORM RATIO 0.9 (0.9-1.1); Prothrombin Time 10.8 SEC (10.9-12.4)
[2024-04-07 02:24] LABS: Alanine Aminotransferase 15 U/L (0-40); Albumin Level 3.8 g/dL (3.5-5.0); Alkaline Phosphatase 110 U/L (39-117); Anion Gap 15 (12-20); Aspartate Amino Transferase 37 U/L (5-37); Bilirubin Total 0.4 mg/dL (0.0-1.0); Blood Urea Nitrogen 21 mg/dL (9-16); Calcium 9.2 mg/dL (8.4-10.2); Carbon Dioxide 28 mmol/L (22-29); Chloride 104 mmol/L (96-108); Creatinine Clr Calc Pharmacy 80.5; Estimated Glomerular Filt Rate > 60; Glucose Random 100 mg/dL (60-115); Potassium 4.5 mmol/L (3.3-5.1); Sodium 142 mmol/L (135-145); Total Protein 8.3 g/dL (6.5-8.0)
--- NOTE | 2024-04-07 03:05 | ED.NAVMDI ---
HPI - Nausea/Vomiting/Diarrhea General Chief complaint: Nausea/Vomiting/Diarrhea Stated complaint: coffee ground emesis Time Seen by Provider: 04/07/24 02:22 Source: EMS and RN notes reviewed Mode of arrival: EMS Limitations: no limitations History of Present Illness ED Provider: HPI Narrative: Patient is 63 years old with history of hypertension hypothyroidism chronic dysphagia status post G-tube COPD schizophrenia came from skilled facility for coffee colored vomiting which started prior to arrival patient's history of same in the past with history of gastritis Related Data Home Medications ?Medication ?Instructions ?Recorded ?Confirmed acetaminophen 160 mg/5 mL oral 960 mg feeding tube BID 06/29/21 07/03/22 liquid benztropine 0.5 mg tablet 0.5 mg feeding tube BID 06/29/21 07/03/22 clonazepam 0.5 mg tablet 0.5 mg feeding tube DAILY@1800 06/29/21 07/03/22 famotidine 20 mg tablet 20 mg feeding tube DAILY@1800 06/29/21 07/03/22 haloperidol 5 mg tablet 5 mg feeding tube DAILY@1800 06/29/21 07/03/22 levothyroxine 125 mcg tablet 125 mcg feeding tube DAILY@0600 06/29/21 07/03/22 levothyroxine 25 mcg tablet 12.5 mcg feeding tube DAILY@0600 06/29/21 07/03/22 melatonin 3 mg tablet 6 mg feeding tube DAILY@1800 06/29/21 07/03/22 polyethylene glycol 3350 17 gram 17 g feeding tube DAILY@1800 06/29/21 07/03/22 oral powder packet quetiapine 100 mg tablet 100 mg feeding tube BEDTIME 06/29/21 07/03/22 valproic acid (as sodium salt) 250 500 mg feeding tube BID 06/29/21 07/03/22 mg/5 mL oral solution ketoconazole 2 % shampoo 1 appl topical MOTH@07/03/22 07/03/22 lactulose 20 gram/30 mL oral 20 g PO TID PRN Constipation 07/03/22 07/03/22 solution quetiapine 50 mg tablet 50 mg feeding tube DAILY 07/03/22 07/03/22 Previous Rx's ?Medication ?Instructions ?Recorded ceftriaxone 2 gram solution for 2 g IV Q24H #10 ea 07/09/22 injection Allergies Allergy/AdvReac Type Severity Reaction Status Date / Time No Known Allergies Allergy Unknown Verified 04/07/24 01:58 [No Known Allergies*] Review of Systems Review of Systems: Yes all other systems are reviewed and are negative [facility] Past Medical History Medical History Dysphagia Osteoarthritis Hypothyroidism Hypertension COPD (chronic obstructive pulmonary disease) Gastrostomy in place Dementia Schizophrenia Social History Social History Household Members: Other Housing: Residential Do you presently have visiting nurse or other home services: Yes (SNF) Unable to assess alcohol history related to: Unable to respond Alcohol intake: former Patient Tobacco Use Status: Tobacco use Unknown Smoked in Last 30 Days: No Use of substances other than those prescribed or required for medical reasons: No Advance Directives: No Do you have a plan to hurt others: No Plan service: No Current occupational status: retired Physical Exam Vital Signs: Vital Signs: Last Vital Signs Temp 98.5 F 04/07/24 06:01 Pulse 95 04/07/24 06:01 Resp 15 04/07/24 06:01 BP 106/79 04/07/24 06:01 Pulse Ox 98 04/07/24 06:01 O2 Del Method Room Air 04/07/24 06:01 BMI result Body Mass Index 23.9 Appearance: Alert. Oriented X3. No acute distress. Actively coffee colored vomitus Eyes: No pallor ENT: Pharynx normal. Oral Mucosa moist Neck: Normal inspection. Neck supple. CVS: Normal heart rate and rhythm. Pulses normal. Respiratory: No respiratory distress. Equal air entry bilateral, no wheezing/rales/rhonchi Abdomen: Soft and nontender. G-tube in place Bowel sounds are present, no mass palpable, no CVA tenderness rectal: Brown stool brown in color guaiac +ve Skin: Skin warm and dry. Normal skin color. Normal skin turgor. Extremities: No lower extremity edema. No calf tenderness Neuro: Oriented X 3. Medications Administered Generic Name Dose Route Start Last Admin Trade Name Freq PRN Reason Stop Dose Admin Pantoprazole Sodium 80 mg/ 100 mls @ 10 mls/hr 04/07/24 03:45 04/07/24 04:03 Sodium Chloride IV 8 mg/hr .Q10H DARYN 10 mls/hr Administration 8 MG/HR Lactated Ringer's 1,000 mls @ 100 mls/hr 04/07/24 05:30 04/07/24 06:08 Lr IVCONT 100 mls/hr .Q10H DARYN Administration Discontinued Medications Generic Name Dose Route Start Last Admin Trade Name Freq PRN Reason Stop Dose Admin Ondansetron HCl 4 mg 04/07/24 05:43 04/07/24 06:10 Ondansetron Hcl 4 Mg/2 Ml Vial IVPUSH 04/07/24 05:44 4 mg ONCE STA Administration Pantoprazole Sodium 80 mg 04/07/24 03:34 04/07/24 03:52 Pantoprazole Sodium 40 Mg/10 Ml Vial IVPUSH 04/07/24 03:35 80 mg ONCE ONE Administration Medical Decision Making Medical Decision Making [facility] Narrative: Patient with upper GI bleed coffee colored with history of same in the past details not available patient just have G-tube which showing slight coffee colored discharge rectum negative for melena but guaiac was positive H&H stable on arrival 15.7/46.5 repeat H&H after 4 hours was 14.6/43.2 will admit patient to hospitalist service started on PPI bolus and drip patient's vitals were stable Differential Diagnosis Differential Diagnoses: The differential diagnosis associated with the presentation includes Admission/Observation Consideration of admission/observation: Escalation of care including admission/observation considered Consult Healthcare Provider Management of the patient was discussed with: Hospitalist Lab Data [facility] Lab Attestation statement: I reviewed the patient's lab results. 04/07/24 05:48 04/07/24 05:48 Labs: Lab Results 04/07/24 04/07/24 04/07/24 Range/Units 01:57 03:31 03:40 WBC 12.6 H (4.8-10.8) X10*3/uL RBC 5.08 (4.60-5.80) X10*6/uL Hgb 15.7 (14.0-18.0) g/dl Hct 46.5 (42.0-52.0) % MCV 91.5 (80.0-98.0) fL MCH 30.9 (27.0-33.0) pg MCHC 33.8 (31.0-36.0) g/dl RDW 13.8 (11.0-16.0) % Plt Count 255 D (160-400) X10*3/uL MPV 11.6 (9.4-12.4) fL Immature Gran % (Auto) 0.2 (0.0-0.4) % Neut % (Auto) 76.1 H (45-73) % Lymph % (Auto) 18.5 L (20-40) % [place] % (Auto) 4.1 (2-11) % Eos % (Auto) 0.7 (0-4) % Baso % (Auto) 0.4 (0-2) % Lymph # (Auto) 2.3 (1.2-4.9) X10*3/uL [place] # (Auto) 0.5 (0.1-1.2) X10*3/uL Eos # (Auto) 0.1 (0.0-0.4) X10*3/uL Baso # (Auto) 0.1 (0.0-0.2) X10*3/uL Abs Immat Gran (auto) 0.03 (0.00-0.03) X10*3/uL Absolute Neuts (auto) 9.6 H (2.0-8.3) x10*3/uL Absolute Nucleated RBC 0.000 (0.0-0.012) X10*3/uL Nucleated RBC % (auto) 0.0 (0.0-0.2) /100WBC PT 10.8 L (10.9-12.4) SEC INR 0.9 (0.9-1.1) Sodium 142 (135-145) mmol/L Potassium 4.5 (3.3-5.1) mmol/L Chloride 104 (96-108) mmol/L Carbon Dioxide 28 (22-29) mmol/L Anion Gap 15 (12-20) BUN 21 H (9-16) mg/dL Creatinine 1.03 (0.5-1.4) mg/dL Estim Creat Clear Calc 80.5 Estimated GFR > 60 Random Glucose 100 (60-115) mg/dL Calcium 9.2 (8.4-10.2) mg/dL Total Bilirubin 0.4 (0.0-1.0) mg/dL AST 37 (5-37) U/L ALT 15 (0-40) U/L Alkaline Phosphatase 110 (39-117) U/L Total Protein 8.3 H (6.5-8.0) g/dL Albumin 3.8 (3.5-5.0) g/dL Gastric Occult Blood POSITIVE (NEG) Stool Occult Blood POSITIVE (NEGATIVE) Influenza Type A (PCR) NEGATIVE (Negative) Influenza Type B (PCR) NEGATIVE (Negative) RSV RNA Qual (PCR) NEGATIVE (Negative) SARS-CoV-2 RNA (RT-PCR) NEGATIVE (Negative) Critical Care Time Critical Care Time Critical Care Time: Yes Total Critical Care Time: 55 Attestation: The patient was critically ill with a high probability of imminent or life threatening deterioration. I spent greater than 60???minutes of discontinuous time evaluating the patient,delivering critical care at the bedside, discussing and evaluating pertinent data with consultants. Critical care time does not include time spent performing separately billable procedures or teaching. Total time spent performing critical care was 55 ???minutes. Discharge Plan Discharge Clinical Impression: Coffee ground vomiting, Acute upper gastrointestinal bleeding Patient Disposition: Admitted As Inpatient
[2024-04-07 03:40] LABS: OBS1 POSITIVE (NEGATIVE)
[2024-04-07 03:41] LABS: OBS Int Ctl Valid YES
[2024-04-07 03:44] LABS: GASOB Int Neg Ctl Valid YES; GASOB Int Pos Ctl Valid YES; GASOB Lot 20632; Occult Blood Gastric POSITIVE (NEG)
[2024-04-07] MEDS: Pantoprazole Sodium 40 MG/10 ML VIAL 80 MG IVPUSH (03:52)
[2024-04-07] MEDS: Pantoprazole Sodium 80 MG in 0.9 % Sodium Chloride 80 ML 10 MG IV ×2 (04:03→16:09)
[2024-04-07 04:15] LABS: Influenza A PCR NEGATIVE (Negative); Influenza B PCR NEGATIVE (Negative); Resp Syncy Virus RNA Qual PCR NEGATIVE (Negative); SARS COV2 PCR INHOUSE NEGATIVE (Negative)
--- NOTE | 2024-04-07 05:33 | P.HPHOSP_ITS ---
History of Present Illness Date of Service: 04/07/24 Attending physician on admission: Ashely Mendosa Chief Complaint: Coffee-ground vomiting Rom Rose is a 63 years old man with past medical history significant for GERD, dysphagia s/p G-tube, dementia, hypothyroidism, CKD, schizophrenia and essential hypertension was brought to the emergency department after he experience events of coffee-ground vomiting. Patient is a poor historian so HPI was limited. Nursing facility medication list is not eliciting any blood thinner. Patient is takes Protonix per G-tube daily. In the ED, he was found to have stable vital signs. Blood workup showed mild leukocytosis of 12.6. Hemoglobin is 15.7 and platelets 255. INR is 0.9. Electrolytes are normal. BUN is 21 and creatinine 1.3. LFTs are unremarkable. Gastric and stool occult blood are both positive. ED tx: Protonix 80 mg IV Review of Systems 2 Review of Systems: Yes Unobtainable due to mental status [facility] Medical History Dysphagia Osteoarthritis Hypothyroidism Hypertension COPD (chronic obstructive pulmonary disease) Gastrostomy in place Dementia Schizophrenia Social History Household Members: Other Housing: [facility] Do you presently have visiting nurse or other home services: Yes (SNF) Unable to assess alcohol history related to: Unable to respond Alcohol intake: former Patient Tobacco Use Status: Tobacco use Unknown Smoked in Last 30 Days: No Use of substances other than those prescribed or required for medical reasons: No Advance Directives: No Do you have a plan to hurt others: No Plan service: No Current occupational status: retired Meds Allergies Allergy/AdvReac Type Severity Reaction Status Date / Time No Known Allergies Allergy Unknown Verified 04/07/24 01:58 [No Known Allergies*] Active Medications: Current Medications Calcium Carbonate (Calcium Carbonate 750 Mg Tab.Chew) 750 mg PO Q4H PRN PRN Reason: Heartburn Pantoprazole Sodium 80 mg/ (Sodium Chloride) 100 mls @ 10 mls/hr IV .Q10H DARYN Last Admin: 04/07/24 04:03 Dose: 8 mg/hr, 10 mls/hr Lactated Ringer's (Lr) 1,000 mls @ 100 mls/hr IVCONT .Q10H DARYN Pantoprazole Sodium (Pantoprazole Sodium 40 Mg/10 Ml Vial) 40 mg IVPUSH BID DARYN Sodium Chloride (0.9 % Sodium Chloride Flush 3 Ml Syringe) 3 ml IVFLUSH QSHIFT [facility] Home Medications ?Medication ?Instructions ?Recorded ?Confirmed ?Last Taken ?Type acetaminophen 160 mg/5 mL oral 960 mg feeding tube BID 06/29/21 07/03/22 06/29/21 History liquid benztropine 0.5 mg tablet 0.5 mg feeding tube BID 06/29/21 07/03/22 06/29/21 History clonazepam 0.5 mg tablet 0.5 mg feeding tube DAILY@1800 06/29/21 07/03/22 06/28/21 History famotidine 20 mg tablet 20 mg feeding tube DAILY@1800 06/29/21 07/03/22 06/28/21 History haloperidol 5 mg tablet 5 mg feeding tube DAILY@1800 06/29/21 07/03/22 06/28/21 History levothyroxine 125 mcg tablet 125 mcg feeding tube DAILY@0600 06/29/21 07/03/22 06/29/21 History levothyroxine 25 mcg tablet 12.5 mcg feeding tube DAILY@0600 06/29/21 07/03/22 06/29/21 History melatonin 3 mg tablet 6 mg feeding tube DAILY@1800 06/29/21 07/03/22 06/28/21 History polyethylene glycol 3350 17 gram 17 g feeding tube DAILY@1800 06/29/21 07/03/22 06/28/21 History oral powder packet quetiapine 100 mg tablet 100 mg feeding tube BEDTIME 06/29/21 07/03/22 06/28/21 History valproic acid (as sodium salt) 250 500 mg feeding tube BID 06/29/21 07/03/22 06/29/21 History mg/5 mL oral solution ketoconazole 2 % shampoo 1 appl topical MOTH@07/03/22 07/03/22 Unknown History lactulose 20 gram/30 mL oral 20 g PO TID PRN Constipation 07/03/22 07/03/22 Unknown History solution quetiapine 50 mg tablet 50 mg feeding tube DAILY 07/03/22 07/03/22 Unknown History Physical Exam 2 Vital Signs and Narrative: Vital Signs: Last Vital Signs Temp 97.9 F 04/07/24 04:00 Pulse 97 04/07/24 04:00 Resp 14 04/07/24 04:00 BP 118/80 04/07/24 04:00 Pulse Ox 97 04/07/24 04:00 O2 Del Method Room Air 04/07/24 04:00 BMI result Body Mass Index 23.9 Constitutional - Awake and Alert, No apparent distress. Chronically ill. Vomiting. HEENT - PERRL, EOMI Heart - RRR, No murmus. Lungs - Normal lung expansion, Normal respiratory effort, No respiratory distress, CTA bilaterally Abdomen- NT / ND; +BS; No rebound or guarding Extremities - no calf tenderness bilaterally, no swelling Musculoskeletal - Normal inspection, normal ROM. Generalized atrophy. Skin - Warm/Dry Neurological - Alert & oriented x1 Psychological - Flat affect Results Labs 04/07/24 01:57 04/07/24 01:57 Labs: Laboratory Results - last 24 hr 04/07/24 04/07/24 04/07/24 01:57 03:31 03:40 MCV 91.5 MCH 30.9 MCHC 33.8 RDW 13.8 Plt Count 255 D MPV 11.6 Immature Gran % (Auto) 0.2 Neut % (Auto) 76.1 H Lymph % (Auto) 18.5 L [place] % (Auto) 4.1 Eos % (Auto) 0.7 Baso % (Auto) 0.4 Lymph # (Auto) 2.3 [place] # (Auto) 0.5 Eos # (Auto) 0.1 Baso # (Auto) 0.1 Abs Immat Gran (auto) 0.03 Absolute Neuts (auto) 9.6 H Absolute Nucleated RBC 0.000 Nucleated RBC % (auto) 0.0 PT 10.8 L INR 0.9 Anion Gap 15 Estim Creat Clear Calc 80.5 Estimated GFR > 60 Random Glucose 100 Calcium 9.2 Total Bilirubin 0.4 AST 37 ALT 15 Alkaline Phosphatase 110 Total Protein 8.3 H Albumin 3.8 Gastric Occult Blood POSITIVE Stool Occult Blood POSITIVE Influenza Type A (PCR) NEGATIVE Influenza Type B (PCR) NEGATIVE RSV RNA Qual (PCR) NEGATIVE SARS-CoV-2 RNA (RT-PCR) NEGATIVE Assessment and Plan (1) Coffee ground vomiting: Status: Acute Plan Rom Rose is a 63 y/o man admitted with: * Coffee ground vomitus/upper GI bleeding. Admit to hospitalist Service p.o. NPO/hold feeding + meds per G-tube. Continue Protonix 40 mg IV twice daily (80 mg IV given by ED). Start IV fluids. Continue to monitor H&H. Check lipase. GI consult. * Hypothyroidism. Continue levothyroxine when able. * COPD. Controlled. DuoNeb as needed. * Schizophrenia/dementia. Continue home medications when able. DVT prophylaxis: SCDs only Code status: Full (per MOLST form) Patient will need hospitalization for at least 2 midnights for upper GI bleeding treatment with continuous H&H monitoring, IV anti-reflux therapy and evaluation by subspecialty for possible procedure. Quality Stroke Does the patient have a stroke diagnosis?: No VTE Prior VTE?: No VTE Risk Level:: Medical - moderate - high VTE Device Contraindication: N/A - Device Ordered VTE Drug Contraindication: Treatment Not Indicated
[2024-04-07 05:52] LABS: Hematocrit 43.2 % (42.0-52.0); Hemoglobin 14.6 g/dl (14.0-18.0); Mean Corpuscular HGB Conc 33.8 g/dl (31.0-36.0); Mean Corpuscular Hemoglobin 30.6 pg (27.0-33.0); Mean Corpuscular Volume 90.6 fL (80.0-98.0); Mean Platelet Volume 11.6 fL (9.4-12.4); Platelet Count 232 X10*3/uL (160-400); Red Blood Count 4.77 X10*6/uL (4.60-5.80); Red Cell Distribution Width 13.9 % (11.0-16.0); White Blood Count 12.9 X10*3/uL (4.8-10.8)
[2024-04-07 06:04] LABS: Anion Gap 12 (12-20); Blood Urea Nitrogen 21 mg/dL (9-16); Carbon Dioxide 27 mmol/L (22-29); Chloride 106 mmol/L (96-108); Creatinine Clr Calc Pharmacy 96.4; Estimated Glomerular Filt Rate > 60; Glucose Random 102 mg/dL (60-115); Lipase 27 U/L (8-78); Potassium 4.4 mmol/L (3.3-5.1); Sodium 141 mmol/L (135-145)
[2024-04-07] MEDS: Lactated Ringers 1,000 ML 100 ML IVCONT (06:08)
[2024-04-07] MEDS: ondansetron HCL 4 MG/2 ML VIAL IVPUSH (06:10)
--- NOTE | 2024-04-07 07:22 | PM.GICN ---
History of Present Illness Data of Consult Service Date: 04/07/24 Requesting physician: Ashely Mendosa Primary Care Provider: PEARL JOHNSON HPI Reason for consult: Coffee-ground emesis 63 YM with GERD, dysphagia s/p G-tube, dementia, hypothyroidism, CKD, schizophrenia and essential hypertension seen at [facility] on 04/06/24 after he experience events of coffee-ground vomiting. Patient is a poor historian so HPI was limited. Nursing facility medication list is not eliciting any blood thinner. Patient is takes Protonix per G-tube daily. I spoke to pt's nurse, Arabella, at [facility] ([phone]). She reported pt has been having intermittent coffee ground emesis for the past 1 month - every 1-2 days Pt was seen by his human resources district manager and no procedures are planned. Nurse reports his Gastrostomy tube is occluded and she requested that his gastrostomy be tube changed. She also questioned if tube feeding should be decreased to 65 ml/hr (getting 70 ml/hour from 2 pm to 10 am) since vomiting may be associated with a high rate of feeding. In the ED, he was found to have stable vital signs. Blood workup showed mild leukocytosis of 12.6. Hemoglobin is 15.7 and platelets 255. INR is 0.9. Electrolytes are normal. BUN is 21 and creatinine 1.3. LFTs are unremarkable. Gastric and stool occult blood are both positive. ED tx: Protonix 80 mg IV Review of Systems Review of Systems: Yes Unobtainable due to mental status [facility] Past Medical History Medical History Dysphagia Osteoarthritis Hypothyroidism Hypertension COPD (chronic obstructive pulmonary disease) Gastrostomy in place Dementia Schizophrenia Social History Social History Household Members: Other Household Members Other:: from [facility] Housing: Retirement Are you a primary healthcare liaison to a significant other at home: No Do you presently have visiting nurse or other home services: No Unable to assess alcohol history related to: Unable to respond Alcohol intake: former Patient Tobacco Use Status: Tobacco use Unknown service: No Current occupational status: retired Meds Allergies Allergy/AdvReac Type Severity Reaction Status Date / Time No Known Allergies Allergy Unknown Verified 04/07/24 14:21 [No Known Allergies*] Active Medications: Current Medications Albuterol/Ipratropium (Albuterol/Iprat 2.5/0.5mg 3 Ml Ampul.Neb) 3 ml INHALE Q3H PRN PRN Reason: wheezing Calcium Carbonate (Calcium Carbonate 750 Mg Tab.Chew) 750 mg PO Q4H PRN PRN Reason: Heartburn Pantoprazole Sodium 80 mg/ (Sodium Chloride) 100 mls @ 10 mls/hr IV .Q10H [facility] Last Admin: 04/07/24 04:03 Dose: 8 mg/hr, 10 mls/hr Lactated Ringer's (Lr) 1,000 mls @ 100 mls/hr IVCONT .Q10H [facility] Last Admin: 04/07/24 06:08 Dose: 100 mls/hr Ondansetron HCl (Ondansetron Hcl 4 Mg/2 Ml Vial) 4 mg IVPUSH Q6H PRN PRN Reason: Nausea and Vomiting Sodium Chloride (0.9 % Sodium Chloride Flush 3 Ml Syringe) 3 ml IVFLUSH QSHIFT [facility] Home Medications ?Medication ?Instructions ?Recorded ?Confirmed ?Last Taken ?Type acetaminophen 160 mg/5 mL oral 960 mg feeding tube BID 06/29/21 04/07/24 06/29/21 History liquid benztropine 0.5 mg tablet 0.5 mg feeding tube BID 06/29/21 04/07/24 04/06/24 History clonazepam 0.5 mg tablet 1 mg feeding tube DAILY@1800 06/29/21 04/07/24 04/06/24 21:00 History haloperidol 5 mg tablet 5 mg feeding tube DAILY@1800 06/29/21 04/07/24 04/07/24 08:00 History levothyroxine 125 mcg tablet 125 mcg feeding tube DAILY@0606/29/21 04/07/24 04/07/24 History levothyroxine 25 mcg tablet 12.5 mcg feeding tube DAILY@0606/29/21 04/07/24 04/07/24 History melatonin 3 mg tablet 6 mg feeding tube DAILY@1800 06/29/21 04/07/24 04/06/24 History polyethylene glycol 3350 17 gram 17 g feeding tube DAILY@1800 06/29/21 04/07/24 04/06/24 History oral powder packet quetiapine 100 mg tablet 100 mg feeding tube BEDTIME 06/29/21 04/07/24 04/06/24 History valproic acid (as sodium salt) 250 500 mg feeding tube BID 06/29/21 04/07/24 04/06/24 History mg/5 mL oral solution ketoconazole 2 % shampoo 1 appl topical MOTH@09 07/03/22 04/07/24 Unknown History lactulose 20 gram/30 mL oral 20 g feeding tube TID PRN 07/03/22 04/07/24 Unknown History solution Constipation quetiapine 50 mg tablet 50 mg feeding tube DAILY 07/03/22 04/07/24 04/06/24 History bisacodyl 10 mg rectal suppository 10 mg SD DAILY PRN Constipation 04/07/24 04/07/24 Unknown History epinephrine 0.3 mg/0.3 mL 0.3 mg IM Q10M PRN Allergic 04/07/24 04/07/24 Unknown History injection, auto-injector (EpiPen) Reaction nutritional supplements 0.06 1 ea feeding tube BID 04/07/24 04/07/24 Unknown History gram-1.2 kcal/mL oral liquid (Osmolite 1.2 Sukhwinder) ondansetron HCl 4 mg tablet 4 mg feeding tube Q6H PRN Nausea 04/07/24 04/07/24 Unknown History And Vomiting pantoprazole 40 mg granules 40 mg feeding tube DAILY@0630 04/07/24 04/07/24 04/06/24 History delayed-release for susp in packet (Protonix) sennosides 8.8 mg/5 mL oral syrup 10 ml feeding tube BID PRN 04/07/24 04/07/24 04/06/24 History (senna) Constipation sodium phosphates 19 gram-7 118 ml SD DAILY PRN Constipation 04/07/24 04/07/24 Unknown History gram/118 mL enema (Fleet Enema) Physical Exam Vital Signs: Vital Signs: Last Vital Signs Temp 98.5 F 04/07/24 06:01 Pulse 95 04/07/24 06:01 Resp 15 04/07/24 06:01 BP 106/79 04/07/24 06:01 Pulse Ox 98 04/07/24 06:01 O2 Del Method Room Air 04/07/24 06:01 BMI result Body Mass Index 23.9 Appearance: Alert. Oriented X3. No acute distress. Actively coffee colored vomitus Eyes: No pallor ENT: Pharynx normal. Oral Mucosa moist Neck: Normal inspection. Neck supple. CVS: Normal heart rate and rhythm. Pulses normal. Respiratory: No respiratory distress. Equal air entry bilateral, no wheezing/rales/rhonchi Abdomen: Soft and nontender. G-tube in place without erythema or tenderness. Bowel sounds are present, no mass palpable, no CVA tenderness rectal: Brown stool brown in color guaiac +ve Skin: Skin warm and dry. Normal skin color. Normal skin turgor. Extremities: No lower extremity edema. No calf tenderness Neuro: Oriented X 3. Results Labs 04/07/24 10:57 04/07/24 05:48 Labs: Short CBC 04/07/24 04/07/24 Range/Units 01:57 05:48 WBC 12.6 H 12.9 H (4.8-10.8) X10*3/uL Hgb 15.7 14.6 (14.0-18.0) g/dl Hct 46.5 43.2 (42.0-52.0) % Plt Count 255 D 232 (160-400) X10*3/uL BMP 04/07/24 04/07/24 01:57 05:48 Sodium 142 141 Potassium 4.5 4.4 Chloride 104 106 Carbon Dioxide 28 27 BUN 21 H 21 H Creatinine 1.03 0.86 Calcium 9.2 9.0 Liver Function 04/07/24 Range/Units 01:57 Total Bilirubin 0.4 (0.0-1.0) mg/dL AST 37 (5-37) U/L ALT 15 (0-40) U/L Alkaline Phosphatase 110 (39-117) U/L Albumin 3.8 (3.5-5.0) g/dL Assessment and Plan (1) Acute upper gastrointestinal bleeding: Status: Acute (2) Coffee ground vomiting: Status: Acute (3) Gastrostomy malfunction: Status: Acute Plan 63 YM with GERD, dysphagia s/p G-tube, dementia, hypothyroidism, CKD, schizophrenia and essential hypertension seen at [facility] on 04/06/24 after he experience events of coffee-ground vomiting. Patient is a poor historian so HPI was limited. Nursing facility medication list is not eliciting any blood thinner. Patient is takes Protonix per G-tube daily. I spoke to pt's nurse, Arabella, at [facility] ([phone]). She reported pt has been having intermittent coffee ground emesis for the past 1 month - every 1-2 days Pt was seen by his human resources district manager and no procedures are planned. Nurse reports his Gastrostomy tube is occluded and she requested that his gastrostomy be tube changed. UGI bleeding likely from erosive esophagitis, peptic ulcer disease, gastric mass, upper GI AVMs or Dieulafoy's RECOMMENDATIONS: 1. Agree with IV PPI 2. Proceed with upper endoscopy today and a change of Gastrostomy tube (occluded). Procedure and potential complications were reviewed with the patient's dad and healthcare proxy, Ramón Rose and informed verbal consent was obtained over the telephone Procedures Date of Service Date of Service: 04/07/24
--- NOTE | 2024-04-07 07:28 | PC.NURSE ---
Pt found to be incontinent of urine, bed change done and [place] cath placed for incontinence, will monitor.
--- NOTE | 2024-04-07 09:51 | MHC.CM.PN ---
IMM 04/07/24 discussed with pt.'s guardian on the phone. Pt lives at [facility]. Guardian is on file and confirmed, his father Ramón. DCP is return to [facility] via BLS. CM to follow and assist with DC plan.
--- NOTE | 2024-04-07 10:49 | PHA.MEDREC ---
Addendum entered by Anisa Nichole RPh 04/07/24 11:02: Reviewed by [facility]. Original Note: Pharmacy Consult ? Medication Reconciliation Pharmacy has completed the medication reconciliation. Utilized list from [facility] to confirm med list.
[2024-04-07 11:14] LABS: Hematocrit 43.2 % (42.0-52.0); Hemoglobin 14.1 g/dl (14.0-18.0); Mean Corpuscular HGB Conc 32.6 g/dl (31.0-36.0); Mean Corpuscular Hemoglobin 30.3 pg (27.0-33.0); Mean Corpuscular Volume 92.7 fL (80.0-98.0); Mean Platelet Volume 12.3 fL (9.4-12.4); Platelet Count 209 X10*3/uL (160-400); Red Blood Count 4.66 X10*6/uL (4.60-5.80); Red Cell Distribution Width 14.1 % (11.0-16.0); White Blood Count 8.9 X10*3/uL (4.8-10.8)
--- NOTE | 2024-04-07 11:21 | ECG_ITS ---
Test Reason : vtac? Blood Pressure : */* mmHG Vent. Rate : 88 BPM Atrial Rate : 88 BPM P-R Int : 156 ms QRS Dur : 80 ms QT Int : 336 ms P-R-T Axes : 39 -70 25 degrees QTcB Int : 406 ms Normal sinus rhythm Left axis deviation Abnormal ECG When compared with ECG of 04-Jul-2022 00:17, No significant changes seen Referred By: Usha Michael Electronically Signed By: REJI FAITH
[2024-04-07] MEDS: Magnesium Sulfate/H2O 2 GM/50 ML PIGGYBACK IV (11:27)
[2024-04-07 12:16] LABS: Magnesium 2.2 mg/dL (1.6-2.6)
[2024-04-07 13:06] LABS: Troponin-I High Sensitivity < 2.7 ng/L (<3.5-35.0)
--- NOTE | 2024-04-07 14:30 | PM.EVENT ---
Event Note Date of Service: 04/07/24 Event Note: Seen and examined this morning Follow-up for coffee-ground emesis Patient awake alert, in no acute distress. Poor historian, history limited, denies any complaints Had episode of what was thought to be NSVT, asymptomatic, blood pressure stable, was given empiric magnesium. Telemetry reviewed by cardiology and thought to be artifact rather than ventricular tachycardia. Coffee ground vomitus/upper GI bleeding. NPO/hold feeding + meds per G-tube Protonix 40 mg IV twice daily (80 mg IV given by ED). H/H has remained stable seen by GI - plan for egd today - further management based on results Leukocytosis Question reactive due to vomiting No source of infection identified resolved Hypothyroidism. Continue levothyroxine COPD. Controlled. DuoNeb as needed. Schizophrenia/dementia. Continue home medications Hypothyroidism Continue Synthroid DVT prophylaxis: SCDs due to concern for GI bleeding Code status: Full (per MOLST form) Time Spent With Patient Time: Total time managing care of this patient today ____ minutes.
[2024-04-07] MEDS: Lactated Ringers 1,000 ML 80 ML IVCONT (14:38)
--- NOTE | 2024-04-07 15:04 | P.CONAN_ITS ---
[facility] Active Problems Active Problems: All Active Problems Gastrostomy malfunction (Acute) Acute upper gastrointestinal bleeding (Acute) Coffee ground vomiting (Acute) Past Medical History Medical History Dysphagia Osteoarthritis Hypothyroidism Hypertension COPD (chronic obstructive pulmonary disease) Gastrostomy in place Dementia Schizophrenia Family History Family history of problems with anesthesia: No Surgical History History of Problems with Anesthesia: No Social History Social History Household Members: Other Household Members Other:: from [facility] Housing: Correction Are you a primary hemodialysis patient care specialist to a significant other at home: No Do you presently have visiting nurse or other home services: No Unable to assess alcohol history related to: Unable to respond Alcohol intake: former Patient Tobacco Use Status: Tobacco use Unknown service: No Current occupational status: retired [employer] Allergies Allergy/AdvReac Type Severity Reaction Status Date / Time No Known Allergies Allergy Unknown Verified 04/07/24 14:21 [No Known Allergies*] Active Medications: Current Medications Albuterol/Ipratropium (Albuterol/Iprat 2.5/0.5mg 3 Ml Ampul.Neb) 3 ml INHALE Q3H PRN PRN Reason: wheezing Benztropine Mesylate (Benztropine Mesylate 0.5 Mg Tablet) 0.5 mg G-TUBE BID DARYN Calcium Carbonate (Calcium Carbonate 750 Mg Tab.Chew) 750 mg PO Q4H PRN PRN Reason: Heartburn Clonazepam (Clonazepam 1 Mg Tablet) 1 mg G-TUBE DAILY@1800 [facility] Haloperidol (Haloperidol 5 Mg Tablet) 5 mg G-TUBE DAILY@1800 [facility] Lactated Ringer's (Lr) 1,000 mls @ 100 mls/hr IVCONT .Q10H DARYN Last Admin: 04/07/24 14:38 Dose: 80 mls/hr Pantoprazole Sodium 80 mg/ (Sodium Chloride) 100 mls @ 10 mls/hr IV Q10H [facility] Lactated Ringer's (Lr) 1,000 mls @ 80 mls/hr IVCONT .[id number] [facility] Levothyroxine Sodium (Levothyroxine Sodium 25 Mcg Tablet) 12.5 mcg G-TUBE DAILY@0600 [facility] Levothyroxine Sodium (Levothyroxine Sodium 125 Mcg Tablet) 125 mcg G-TUBE DAILY@0600 [facility] Naloxone HCl (Naloxone Hcl 0.4 Mg/Ml Vial) 0.04 mg IVPUSH Q5M PRN PRN Reason: Excessive sedation or RR < 8 Quetiapine Fumarate (Quetiapine Fumarate 50 Mg Tablet) 50 mg G-TUBE DAILY [facility] Sodium Chloride (0.9 % Sodium Chloride Flush 3 Ml Syringe) 3 ml IVFLUSH QSHIFT [facility] Last Admin: 04/07/24 07:28 Dose: Not Given Valproic Acid (Valproic Acid Liquid 250 Mg/5 Ml Solution) 500 mg G-TUBE BID [facility] Last Admin: 04/07/24 14:22 Dose: Not Given Home Medications ?Medication ?Instructions ?Recorded ?Confirmed ?Last Taken ?Type acetaminophen 160 mg/5 mL oral 960 mg feeding tube BID 06/29/21 04/07/24 06/29/21 History liquid benztropine 0.5 mg tablet 0.5 mg feeding tube BID 06/29/21 04/07/24 04/06/24 History clonazepam 0.5 mg tablet 1 mg feeding tube DAILY@1800 06/29/21 04/07/24 04/06/24 21:00 History haloperidol 5 mg tablet 5 mg feeding tube DAILY@1800 06/29/21 04/07/24 04/07/24 08:00 History levothyroxine 125 mcg tablet 125 mcg feeding tube DAILY@0606/29/21 04/07/24 04/07/24 History levothyroxine 25 mcg tablet 12.5 mcg feeding tube DAILY@0606/29/21 04/07/24 04/07/24 History melatonin 3 mg tablet 6 mg feeding tube DAILY@1800 06/29/21 04/07/24 04/06/24 History polyethylene glycol 3350 17 gram 17 g feeding tube DAILY@1800 06/29/21 04/07/24 04/06/24 History oral powder packet quetiapine 100 mg tablet 100 mg feeding tube BEDTIME 06/29/21 04/07/24 04/06/24 History valproic acid (as sodium salt) 250 500 mg feeding tube BID 06/29/21 04/07/24 04/06/24 History mg/5 mL oral solution ketoconazole 2 % shampoo 1 appl topical MOTH@07/03/22 04/07/24 Unknown History lactulose 20 gram/30 mL oral 20 g feeding tube TID PRN 07/03/22 04/07/24 Unknown History solution Constipation quetiapine 50 mg tablet 50 mg feeding tube DAILY 07/03/22 04/07/24 04/06/24 History bisacodyl 10 mg rectal suppository 10 mg PA DAILY PRN Constipation 04/07/24 04/07/24 Unknown History epinephrine 0.3 mg/0.3 mL 0.3 mg IM Q10M PRN Allergic 04/07/24 04/07/24 Unknown History injection, auto-injector (EpiPen) Reaction nutritional supplements 0.06 1 ea feeding tube BID 04/07/24 04/07/24 Unknown History gram-1.2 kcal/mL oral liquid (Osmolite 1.2 Sukhwinder) ondansetron HCl 4 mg tablet 4 mg feeding tube Q6H PRN Nausea 04/07/24 04/07/24 Unknown History And Vomiting pantoprazole 40 mg granules 40 mg feeding tube DAILY@0630 04/07/24 04/07/24 04/06/24 History delayed-release for susp in packet (Protonix) sennosides 8.8 mg/5 mL oral syrup 10 ml feeding tube BID PRN 04/07/24 04/07/24 04/06/24 History (senna) Constipation sodium phosphates 19 gram-7 118 ml PA DAILY PRN Constipation 04/07/24 04/07/24 Unknown History gram/118 mL enema (Fleet Enema) Exam Height,Weight and Vital Signs: Height 6 ft Weight 79.9 kg Last Vital Signs Temp 98.0 F 04/07/24 14:26 Pulse 80 04/07/24 14:26 Resp 18 04/07/24 14:26 BP 111/71 04/07/24 14:26 Pulse Ox 96 04/07/24 14:26 O2 Del Method Room Air 04/07/24 14:26 Pertinent Lab Results Pertinent Lab Results: Laboratory Tests 04/07/24 04/07/24 04/07/24 01:57 03:31 03:40 WBC 12.6 H RBC 5.08 Hgb 15.7 Hct 46.5 MCV 91.5 MCH 30.9 MCHC 33.8 RDW 13.8 Plt Count 255 D MPV 11.6 Immature Gran % (Auto) 0.2 Neut % (Auto) 76.1 H Lymph % (Auto) 18.5 L [place] % (Auto) 4.1 Eos % (Auto) 0.7 Baso % (Auto) 0.4 Lymph # (Auto) 2.3 [place] # (Auto) 0.5 Eos # (Auto) 0.1 Baso # (Auto) 0.1 Abs Immat Gran (auto) 0.03 Absolute Neuts (auto) 9.6 H Absolute Nucleated RBC 0.000 Nucleated RBC % (auto) 0.0 PT 10.8 L INR 0.9 Sodium 142 Potassium 4.5 Chloride 104 Carbon Dioxide 28 Anion Gap 15 BUN 21 H Creatinine 1.03 Estim Creat Clear Calc 80.5 Estimated GFR > 60 Random Glucose 100 Calcium 9.2 Magnesium Total Bilirubin 0.4 AST 37 ALT 15 Alkaline Phosphatase 110 Troponin I High Sens Total Protein 8.3 H Albumin 3.8 Lipase Gastric Occult Blood POSITIVE Stool Occult Blood POSITIVE Influenza Type A (PCR) NEGATIVE Influenza Type B (PCR) NEGATIVE RSV RNA Qual (PCR) NEGATIVE SARS-CoV-2 RNA (RT-PCR) NEGATIVE 04/07/24 04/07/24 04/07/24 05:48 10:57 12:14 WBC 12.9 H 8.9 RBC 4.77 4.66 Hgb 14.6 14.1 Hct 43.2 43.2 MCV 90.6 92.7 MCH 30.6 30.3 MCHC 33.8 32.6 RDW 13.9 14.1 Plt Count 232 209 MPV 11.6 12.3 Immature Gran % (Auto) Neut % (Auto) Lymph % (Auto) [place] % (Auto) Eos % (Auto) Baso % (Auto) Lymph # (Auto) [place] # (Auto) Eos # (Auto) Baso # (Auto) Abs Immat Gran (auto) Absolute Neuts (auto) Absolute Nucleated RBC 0.000 0.000 Nucleated RBC % (auto) 0.0 0.0 PT INR Sodium 141 Potassium 4.4 Chloride 106 Carbon Dioxide 27 Anion Gap 12 BUN 21 H Creatinine 0.86 Estim Creat Clear Calc 96.4 Estimated GFR > 60 Random Glucose 102 Calcium 9.0 Magnesium 2.2 Total Bilirubin AST ALT Alkaline Phosphatase Troponin I High Sens < 2.7 D Total Protein Albumin Lipase 27 Gastric Occult Blood Stool Occult Blood Influenza Type A (PCR) Influenza Type B (PCR) RSV RNA Qual (PCR) SARS-CoV-2 RNA (RT-PCR) Airway Mallampati Class: II (edentulous) TM Dist: >3cm Neck ROM: Full Heart: rrr Lungs: cta Assessment and Plan Assessment Anesthesia Assessment: Anesthesia Plan Discussed and Chart Reviewed Final Anesthetic Review Family History of Problems with Anesthesia: No History of Problems with Anesthesia: No NPO: Yes ASA Class: III Final Preanesthetic Review: No Changes in Pt Med Stat, Meds/Allgs Chart Reviewed and Consent Obtained/Reviewed Patient Risk: Intermediate Procedure Risk: Intermediate Anesthetic Plan Anesthetic Plan: MAC: Disposition: Standard PACU
--- NOTE | 2024-04-07 15:26 | P.OP_ITS ---
Operative Note Operative Note Date of Service: 04/07/24 Narrative: FLEXIBLE TRANSORAL UPPER GASTROINTESTINAL ENDOSCOPY WITH BIOPSIES AND GASTROSTOMY TUBE CHANGE Pre-op diagnosis: UGI bleeding, Occluded gastrostomy tube Post-op diagnosis: Erosive esophagitis, Gastritis, Gastric ulcers Endoscopist:Lesli Lua MD Anesthesia:?MAC UPPER ENDOSCOPY Consent: Indications for the procedure and potential complications of bleeding, perforation, reaction to medications and missed diagnosis were discussed with the patient's dad and healthcare proxy, Ramón Rose ([phone]) and informed verbal consent was obtained over the telephone. Instrument: Olympus GIF H 190 mid size upper endoscope Monitoring: Vital signs and clinical assessment, continuous EKG monitoring, Pulse oximetry, Carbon Dioxide monitoring and blood pressure monitoring were done throughout the procedure. Procedure: The patient was placed in the left lateral decubitis position and pre-procedure medications were administered and a bite block was placed. The endoscope was inserted into the mouth and advanced under direct vision to the third part of duodenum. A careful inspection was made as the upper endoscope was withdrawn including a retroflexed examination of the proximal stomach; Findings and interventions are described below. Findings: Larynx: Normal Esophagus: GE junction at 40 cms. Severe erosive esophagitis from 25 to 40 cms with linear ulcers and erosions (LA Grade C) Stomach: Gastrostomy balloon noted occluding the pylorus and pulled back into the stomach. Four 5 to 10 mm non-bleeding ulcers with clean base in the gastric body along the lesser curvature - one ulcer was biopsied. Moderate diffuse gastric erythema - biopsies were obtained from the antrum. Grade 2 flap valve on retroflexed examination of the cardia. Gastrostomy balloon was deflated and an Avanos TOMMY 20 F Gastrostomy tube was placed easily. Gastrostomy balloon was inflated with 9 ml of water. Gastrostomy tube was flush ed with water and bilious fluid was aspirated. External bolster of Gastrostomy tube at 4 cms from the abdominal wall. Endoscope was reinserted and appropriate position of Gastrostomy tube was confirmed endoscopically. On attempts to suction the tube with a tumi syringe, the mucosa of the opposite gastric wall gets pulled into the inner stoma of the gastrostomy tube which makes it difficult to aspirate gastric contents. Gastrostomy tube flushed easily Duodenum: Normal bulb and descending duodenum Intervention: Biopsies and change of gastrostomy tube as noted above Impression and Post Procedure Diagnosis: Endoscopy Findings: ESOPHAGUS: Severe erosive esophagitis STOMACH: Gastritis and multiple small non-bleeding gastric ulcers DUODENUM: Normal Status post successful change of gastrostomy tube. Plan: Increase Pantoprazole to 40 mg twice daily Keep patient's head elevated at 30 to 45 degrees during and 2 hours after tube feedings. Dietary consult regarding ? decrease in tube feedings to 65 ml/hour from 70 ml/hour. FU in 6 months for Gastrostomy tube change. BIOPSIES SHOWED: A. Stomach, antrum, biopsy: Antral-type mucosa with mild chronic inactive inflammation; no Helicobacter organisms seen. B. Stomach, ulcer, biopsy: Scant superficial fragments of gastric mucosa within normal limits.
[2024-04-07] MEDS: 0.9 % Sodium Chloride Flush 3 ML SYRINGE IVFLUSH (16:10)
--- NOTE | 2024-04-07 17:33 | MHC.CLN ---
RE: CONSULT FOR TUBE FEEDING WHILE IN [facility]; RECOMMEND TUBE FEEDING OSMOLITE 1.5 AT MAX GOAL RATE 55ML/HR CONTINUOUS X 24 HOURS WITH 240ML FREE WATER FLUSHES Q 4 HOURS TO PROVIDE 1980KCALS (25KCALS/KG BASED ON ABW), 82.6G PROTEIN (1.03G/KG), 2443ML TOTAL WATER FROM FORMULA AND FLUSHES (30ML/KG) START FORMULA 20ML/HR AND INCREASE BY 10ML Q 2 HRS UNTIL MAX GOAL IS ACHIEVED MONITOR TOLERANCE AND LYTES DISCUSSED CASE WITH PA REGARDING REQUEST FOR TF DECREASE TO 65ML/HR AT [facility] TF AT SNF RUNS X20 HOURS CONTINUOUS OSMOLITE 1.5 AT MAX GOAL RATE 65ML/HR X 20 HOURS WOULD PROVIDE 1950KCALS (24.4KCALS/KG), 81G PROTEIN (1.01G/KG) TF AT DECREASED RATE MAY INCREASE RISK OF WT LOSS. PT IS CURRENTLY WITHIN IBW RANGE AND GOAL SHOULD BE TO MAINTAIN HIS CURRENT WT. RECOMMEND PT CONTINUE OSMOLITE 1.5 AT 70ML/HR X 20HOURS CONTINUOUS PREVIOUSLY PRESCRIBED UPON DISCHARGE BACK TO [facility] TO MAINTAIN WEIGHT
[2024-04-07] MEDS: HaloperidoL 5 MG TABLET G-TUBE (18:28)
[2024-04-07] MEDS: clonazePAM 1 MG TABLET G-TUBE (18:28)
[2024-04-07] MEDS: Benztropine Mesylate 0.5 MG TABLET G-TUBE (21:40)
[2024-04-07] MEDS: Valproic Acid Liquid 250 MG/5 ML SOLUTION 500 MG G-TUBE (21:40)
[2024-04-08] VITALS: BP 103/57; PULSE 66; RESP 14; TEMP 36.3; O2SAT 95
[2024-04-08] MEDS: 0.9 % Sodium Chloride Flush 3 ML SYRINGE IVFLUSH (00:35)
[2024-04-08] MEDS: Lactated Ringers 1,000 ML 80 ML IVCONT (00:36)
[2024-04-08] MEDS: Pantoprazole Sodium 80 MG in 0.9 % Sodium Chloride 80 ML 10 MG IV ×2 (01:59→10:41)
[2024-04-08 03:49] VITALS: BP 102/52; PULSE 63; RESP 14; TEMP 36.1; O2SAT 94
[2024-04-08] MEDS: Levothyroxine Sodium 125 MCG TABLET G-TUBE (05:43)
[2024-04-08] MEDS: Levothyroxine Sodium 25 MCG TABLET 12.5 MCG G-TUBE (05:43)
[2024-04-08 07:57] VITALS: BP 117/62; PULSE 65; RESP 19; TEMP 36.4; O2SAT 93
[2024-04-08 08:27] LABS: Hematocrit 37.4 % (42.0-52.0); Hemoglobin 12.1 g/dl (14.0-18.0)
[2024-04-08] MEDS: Valproic Acid Liquid 250 MG/5 ML SOLUTION 500 MG G-TUBE (10:41)
[2024-04-08] MEDS: Benztropine Mesylate 0.5 MG TABLET G-TUBE (10:41)
[2024-04-08] MEDS: QUEtiapine Fumarate 50 MG TABLET G-TUBE (10:41)
--- NOTE | 2024-04-08 11:14 | P.DS_ITS ---
DS: Providers Provider Date of Service: 04/08/24 Date of admission: 04/07/24 05:20 Date of discharge: 04/08/24 Primary care physician: PEARL JOHNSON Consults: 04/07/24 05:24 Consult to Gastroenterology Routine Consulting Provider: Xavier Lua Reason for consultation: Coffee-ground vomiting Has provider been notified: No Attending physician on discharge: Sven Hernandez Discharging clinician: Usha Michael DS: Diagnosis Discharge Diagnosis (1) Acute upper gastrointestinal bleeding: Status: Acute (2) Coffee ground vomiting: Status: Acute (3) Gastrostomy malfunction: Status: Acute DS: Summary Hospital Course Hospital Course: From H&P on the day of admission Rom Rose is a 63 years old man with past medical history significant for GERD, dysphagia s/p G-tube, dementia, hypothyroidism, CKD, schizophrenia and essential hypertension was brought to the emergency department after he experience events of coffee-ground vomiting. Patient is a poor historian so HPI was limited. Nursing facility medication list is not eliciting any blood thinner. Patient is takes Protonix per G-tube daily. In the ED, he was found to have stable vital signs. Blood workup showed mild leukocytosis of 12.6. Hemoglobin is 15.7 and platelets 255. INR is 0.9. Electrolytes are normal. BUN is 21 and creatinine 1.3. LFTs are unremarkable. Gastric and stool occult blood are both positive. ED tx: Protonix 80 mg IV Coffee ground vomitus/upper GI bleeding. was started on IV Protonix 40 mg IV. was seen by GI and underwent EGD on 04/07. Overall no significant drop in H/H and no further hemetemsis. Tolerating tube feeds ESOPHAGUS: Severe erosive esophagitis. STOMACH: Gastritis and multiple small non-bleeding gastric ulcers Status post successful change of gastrostomy tube. plan to increase Pantoprazole to 40 mg twice daily. Keep patient's head elevated at 30 to 45 degrees during and 2 hours after tube feedings. FU in 6 months for Gastrostomy tube change. d/w nutrition , RECOMMEND PT CONTINUE OSMOLITE 1.5 AT 70ML/HR X 20HOURS CONTINUOUS PREVIOUSLY PRESCRIBED UPON DISCHARGE BACK TO SNF TO MAINTAIN WEIGHT Leukocytosis Likely reactive due to vomiting. resolved. Time Attestation Discharge Coordination Time (in mins): 40 Quality: Safe Use of Opioids Does Pt have an Active Cancer Diagnosis on the Problem List?: No Quality: Stroke Does the patient have a stroke diagnosis?: No Physical Exam Vital Signs: Vital Signs: Last Vital Signs Temp 97.6 F 04/08/24 07:57 Pulse 65 04/08/24 07:57 Resp 19 04/08/24 07:57 BP 117/62 04/08/24 07:57 Pulse Ox 93 04/08/24 07:57 O2 Del Method Room Air 04/08/24 07:57 BMI result Body Mass Index 23.9 Const: General: cooperative, alert and awake Nutritional Appearance: average body habitus Resp: Effort & Inspection: normal respiratory effort, able to speak in complete sentences, no respiratory distress and no use of accessory muscles Cardio: Rate: regular rate GI: Inspection: No distended Palpation (GI): Soft to palpation and no guarding DS: Data Data Completed and Pending Completed studies during hospitalization [Text1]: Procedures Insertion of Infusion Device into Right Basilic Vein, Percutaneous Approach (07/04/22) Insertion of Infusion Device into Superior Vena Cava, Percutaneous Approach (07/04/22) Introduction of Vasopressor into Peripheral Vein, Percutaneous Approach (07/04/22) Ultrasonography of Superior Vena Cava, Guidance (07/04/22) Pending studies at discharge: Pending at discharge 04/07/24 15:09 Surgical [PTH] Routine Labs on day of discharge: Laboratory Results - last 24 hr 04/07/24 04/07/24 04/07/24 05:48 10:57 12:14 WBC 8.9 RBC 4.66 Hgb 14.1 Hct 43.2 MCV 92.7 MCH 30.3 MCHC 32.6 RDW 14.1 Plt Count 209 MPV 12.3 Absolute Nucleated RBC 0.000 Nucleated RBC % (auto) 0.0 Magnesium 2.2 Troponin I High Sens < 2.7 D 04/08/24 07:47 WBC RBC Hgb 12.1 L Hct 37.4 L MCV MCH MCHC RDW Plt Count MPV Absolute Nucleated RBC Nucleated RBC % (auto) Magnesium Troponin I High Sens Discharge Plan Discharge Patient Disposition: er [facility] Discharge Diagnosis: upper gi bleeding due to esophagitis, gastric ulcers Referrals: PEARL JOHNSON [Primary Care Provider] - 1 Week Discharge Medications: Continued benztropine 0.5 mg Tablet 0.5 mg feeding tube BID Rx Instructions: AT 0600 AND 1800 haloperidol 5 mg Tablet 5 mg feeding tube DAILY@1800 acetaminophen 160 mg/5 mL Liquid 960 mg feeding tube BID Rx Instructions: TAKE A 6 AM AND 6 PM polyethylene glycol 3350 17 gram Powder In Packet 17 g feeding tube DAILY@1800 clonazepam 0.5 mg Tablet 1 mg feeding tube DAILY@1800 melatonin 3 mg Tablet 6 mg feeding tube DAILY@1800 quetiapine 100 mg Tablet 100 mg feeding tube BEDTIME levothyroxine 25 mcg Tablet 12.5 mcg feeding tube DAILY@0600 Rx Instructions: give with 125mcg tablet, tdd: 137.5 mcg valproic acid (as sodium salt) 250 mg/5 mL Solution 500 mg feeding tube BID levothyroxine 125 mcg Tablet 125 mcg feeding tube DAILY@0600 Rx Instructions: WITH 12.5 MCG TABLET, tdd: 137.5 mcg ketoconazole 2 % Shampoo 1 appl TOPICAL MOTH@09 Patient Comments: WEDNESDAY & WEDNESDAY quetiapine 50 mg Tablet 50 mg feeding tube DAILY lactulose 20 gram/30 mL Solution 20 g feeding tube TID PRN (Reason: Constipation) ondansetron HCl [Zofran] 4 mg Tablet 4 mg feeding tube Q6H PRN (Reason: Nausea And Vomiting) sennosides [senna] 8.8 mg/5 mL Syrup 10 ml feeding tube BID PRN (Reason: Constipation) bisacodyl 10 mg Suppository 10 mg [place] DAILY PRN (Reason: Constipation) Fleet Enema 19-7 gram/118 mL Enema 118 ml [place] DAILY PRN (Reason: Constipation) Osmolite 1.2 Sukhwinder 0.06 gram-1.2 kcal/mL Liquid 1 ea feeding tube BID Rx Instructions: give 1,400 ml via g-tube bid epinephrine [EpiPen] 0.3 mg/0.3 mL Auto-Injector 0.3 mg IM Q10M PRN (Reason: Allergic Reaction) Rx Instructions: for 2 doses Changed pantoprazole [Protonix] [address] For Susp In Packet 40 mg feeding tube BID Qty: 30 0RF Activity on Discharge: As tolerated Stand Alone Forms: Patient Portal Discharge page Print Language: Azeri Care Plan Goals: see below Health Concerns: upper GI bleeding due to severe erosive esophagitis, gastritis and multiple small non-bleeding gastric ulcers Plan of Treatment: Increase Pantoprazole to 40 mg twice daily Keep patient's head elevated at 30 to 45 degrees during and 2 hours after tube feedings. gtube changed 04/07. FU in 6 months for Gastrostomy tube change. repeat CBC in one week Assessment: see discharge summary
[2024-04-08 11:42] VITALS: BP 107/68; PULSE 83; RESP 19; TEMP 36.3; O2SAT 94
--- NOTE | 2024-04-08 12:33 | MHC.CM.PN ---
PT CLEARED TO RETURN TO [facility] TODAY BLS TRANSPORT BOOKED WITH [facility] FOR 1430 HOURS GUARDIAN/FATHER, SIDNEY GRANADOS [phone] UPDATED
== END 2024-04-08 14:40 | DRG 382 ==
LOC: HO.ED 02:22 → HO.EDOVER 05:26 → HO.IMC 09:24
PROVIDERS: Internal Medicine Gastroenterology; Admitting Provider Internal Medicine; Emergency Provider Internal Medicine; PCP Emergency Medicine; Visit Provider Physician Assistant Medical
PROC: 0DJ08ZZ Inspection of Upper Intestinal Tract, Via Natural or Artificial Opening Endoscopic (ICD-10-PCS; CPT 43235; principal; 2024-04-07 14:30)
DX: K22.11 Ulcer of esophagus with bleeding (principal); K29.71 Gastritis, unspecified, with bleeding; K25.4 Chronic or unspecified gastric ulcer with hemorrhage; E03.9 Hypothyroidism, unspecified; F20.9 Schizophrenia, unspecified; F03.90 Unspecified dementia, unspecified severity, without behavioral disturbance, psychotic disturbance, mood disturbance, and anxiety; J44.9 Chronic obstructive pulmonary disease, unspecified; I12.9 Hypertensive chronic kidney disease with stage 1 through stage 4 chronic kidney disease, or unspecified chronic kidney disease; N18.9 Chronic kidney disease, unspecified; Z20.822 Contact with and (suspected) exposure to COVID-19; Z93.1 Gastrostomy status; Z79.890 Hormone replacement therapy; Z79.899 Other long term (current) drug therapy
CPT/HCPCS: 43239; 43246; 0241U; 36415; 80048; 80053; 82271; 82272; 83690; 83735; 84484; 85014; 85018; 85025; 85027; 85610; 88305; 88313; 93005; 99222; 99285; J2003; J2405; J2470; J2704; J3475; J7120

== ENCOUNTER 2024-04-07 05:20 | Outpatient (BNV) | payer OTHER, SELFPAY | END 2024-04-07 11:21 | PROVIDERS: Admitting Provider Internal Medicine; Emergency Provider Internal Medicine; PCP Emergency Medicine; Visit Provider Internal Medicine | DX: R94.31 Abnormal electrocardiogram [ECG] [EKG] (principal) | CPT/HCPCS: 93010 ==

== ENCOUNTER → 2024-04-07 05:20 | Outpatient (BNV) | payer OTHER, SELFPAY | PROVIDERS: Admitting Provider Internal Medicine; Emergency Provider Internal Medicine; PCP Emergency Medicine; Visit Provider Internal Medicine Gastroenterology | DX: K94.23 Gastrostomy malfunction (principal); K92.2 Gastrointestinal hemorrhage, unspecified; K92.0 Hematemesis | CPT/HCPCS: 99222 ==

== ENCOUNTER → 2024-04-07 05:20 | Outpatient (BNV) | payer OTHER, SELFPAY | PROVIDERS: Admitting Provider Internal Medicine; Emergency Provider Internal Medicine; PCP Emergency Medicine; Visit Provider Internal Medicine | DX: K92.2 Gastrointestinal hemorrhage, unspecified (principal); K92.0 Hematemesis; K94.23 Gastrostomy malfunction | CPT/HCPCS: 99223; 99239; 99499 ==